=== PATIENT | male | born 1935 | race Caucasian/White ===

== ENCOUNTER 2018-04-30 12:50 | Emergency (ER) | payer MEDICARE ==
[2018-04-30 13:08] VITALS: BP 145/64
[2018-04-30] MEDS ORDERED: Ibuprofen TAB* 600 MG PO ONE (13:18)
--- NOTE | 2018-04-30 13:54 | RAD ---
INDICATION: Right foot pain COMPARISON: None TECHNIQUE: AP, lateral, and oblique views were obtained. FINDINGS: There is osteopenia. There is no acute bony change. There is diffuse soft tissue swelling over the dorsum of the forefoot. IMPRESSION: DIFFUSE SOFT TISSUE SWELLING OF THE FOREFOOT. NO FRACTURE OR FOREIGN BODY.
--- NOTE | 2018-04-30 14:28 | UC ---
Daxa Porter Tenzin, scribed for Slick Barajas MD on 04/30/18 at 1322 . Lower Extremity/Ankle HPI - HPI Summary HPI Summary: Pt is an 82 years old male with a hx of DM presenting to the complaining of pain in his right foot since 2 weeks ago. He notes that he had similar pain in the past year and it went away. Per triage, pt rates the pain at 4/10 in severity and describes it as aching. Denies fever,chills and trauma. He notes that ibuprofen helps alleviate the pain. No aggravating factors were noted. - History of Current Complaint Chief Complaint: UCLowerExtremity Stated Complaint: FOOT PAIN Time Seen by Provider: 04/30/18 13:14 Hx Obtained From: Patient Onset/Duration: Still Present Severity Currently: Mild Pain Intensity: 4 Pain Scale Used: 0-10 Numeric Aggravating Factor(s): Nothing Alleviating Factor(s): Other - Ibuprofen. - Allergies/Home Medications Allergies/Adverse Reactions: Allergies Allergy/AdvReac Type Severity Reaction Status Date / Time No Known Allergies Allergy Verified 04/30/18 13:08 Home Medications: Home Medications Ibuprofen TAB* [Advil TAB*] 200 mg PO Q6H PRN 04/30/18 [History Confirmed ] PMH/Surg Hx/FS Hx/Imm Hx - Additional Past Medical History Additional PMH: NEGATIVE: CARDIAC DISEASE POSITIVE: DM Endocrine History: Diabetes - Surgical History Surgical History: None - Family History Known Family History: Positive: Other - pt denies any relevant family history. - Social History Alcohol Use: None Substance Use Type: None Smoking Status (MU): Former Smoker When Did the Patient Quit Smoking/Using Tobacco: 2000 - Immunization History Most Recent Tetanus Shot: unknown Review of Systems Constitutional: Negative Skin: Negative Eyes: Negative ENT: Negative Respiratory: Negative Cardiovascular: Negative Gastrointestinal: Negative Genitourinary: Negative Motor: Negative Neurovascular: Negative Musculoskeletal: Other: - Pain in right foot. Neurological: Negative Psychological: Negative All Other Systems Reviewed And Are Negative: Yes - Comments Additional Review of Systems Comments: POSITIVE: RIGHT FOOT PAIN NEGATIVE: FEVER, CHILLS, TRAUMA. Physical Exam - Summary Physical Exam Summary: General: well-appearing, no pain distress Skin: warm, color reflects adequate perfusion, dry Head: normal Eyes: EOMI, HALEY ENT: normal Neck: supple, nontender Respiratory: CTA, breath sounds present Cardiovascular: RRR Abdomen: soft, nontender Bowel: present Musculoskeletal: Bilateral pedal edema; right foot is worse than left. Right foot is erythematous, warm to touch. No drainage and wound in right foot. Neurological: sensory/motor intact, A&O x3 Psychological: affect/mood appropriate Triage Information Reviewed: Yes Vital Signs: Initial Vital Signs Temp 97.7 F 04/30/18 13:03 Pulse 87 04/30/18 13:03 Resp 16 04/30/18 13:03 BP 145/64 04/30/18 13:03 Pulse Ox 96 04/30/18 13:03 Vital Signs Reviewed: Yes Diagnostics - Radiology RIGHT FOOT X RAY Radiology Interpretation Completed By: Radiologist - IMPRESSION:DIFFUSE SOFT TISSUE SWELLING OF THE FOREFOOT. NO FRACTURE OR FOREIGN BODY. Lower Extremity Course/Dx - Course Course Of Treatment: NO CALF TENDERNESS. NO FEVER. NO SOB. WILL TREAT FOR CELLULITIS. BLOOD WORK OBTAINED TO FURTHER EVAL FOR CHF. [facility] WITH [facility]; RECHECK SOONER IF WORSE. - Differential Dx/Diagnosis Provider Diagnoses: PEDAL EDEMA. RIGHT FOOT PAIN. RIGHT FOOT CELLULITIS Discharge - Sign-Out/Discharge Documenting (check all that apply): Discharge/Admit/Transfer - Discharge Plan Condition: Stable Disposition: HOME Prescriptions: Cephalexin CAP* [Keflex CAP*] 500 mg PO QID #40 cap Patient Education Materials: Cellulitis (ED), Leg Edema (ED) Referrals: Carol Kearney [Primary Care Provider] - Additional Instructions: FOLLOW UP WITH YOUR PRIMARY CARE DOCTOR AND THE [facility]. GET RECHECKED FOR ANY WORSENING OF YOUR CONDITION; FEVER, SPREAD OF THE RASH, YOU FEEL ILL OR QUESTIONS OR CONCERNS. - Billing Disposition and Condition Condition: STABLE Disposition: Home The documentation as recorded by the Daxa ruano Tenzin accurately reflects the service I personally performed and the decisions made by me, Slick Barajas MD.
== END 2018-04-30 14:35 | disposition home or self-care (01) ==
LOC: UCEAST 12:50
DX: L03.115 Cellulitis of right lower limb (principal); R60.0 Localized edema; M79.671 Pain in right foot; E11.9 Type 2 diabetes mellitus without complications; Z87.891 Personal history of nicotine dependence
CPT/HCPCS: 99212; A9270-GY; G0463

== ENCOUNTER 2018-08-28 16:19 | Inpatient (IN) | payer OTHER, MEDICARE ==
[2018-08-28 18:29] LABS: ABS Basophils 0.1 10^3/ul (0-0.2); ABS Eosinophils 0.7 10^3/ul (0-0.6); ABS Lymphocytes 1.3 10^3/ul (1.0-4.8); ABS Monocytes 0.6 10^3/ul (0-0.8); ABS Neutrophils 6.9 10^3/ul (1.5-7.7); ABS Nucleated RBC 0 10^3/ul; Eosinophil % 6.9 % (0-6); Hematocrit 34 % (42-52); Hemoglobin 11.4 g/dl (14.0-18.0); Lymphocyte % 13.5 % (25-47); Mean Corpuscular HGB Conc 34 g/dl (31-36); Mean Corpuscular Hemoglobin 30 pg (27-31); Mean Corpuscular Volume 88 fL (80-94); Mean Platelet Volume 7.9 um3 (7.4-10.4); Nucleated Red Blood Cells % 0; Platelet Count 285 10^3/ul (150-450); Red Cell Distribution Width 13 % (10.5-15); White Blood Count 9.5 10^3/ul (3.5-10.8)
[2018-08-28 18:47] LABS: EGFR Non-African American 46.7 (>60)
[2018-08-28] MEDS ORDERED: Diazepam TAB(*) 5 MG PO ONE (19:11)
[2018-08-28] MEDS ORDERED: Vancomycin(*) 1,000 MG in NS 0.9% 250 ML* 250 ML IVPB ONE (19:23)
[2018-08-28] MEDS ORDERED: Acetaminophen TAB* 325 MG PO ONE (19:28)
[2018-08-28] MEDS ORDERED: NS 0.9% 500 ML* 500 ML IV ONE (19:28)
[2018-08-28] MEDS ORDERED: Piperacillin/Tazobac ADVAN(*) 3.375 GM in NS 0.9% 100 ML* 100 ML IVPB ONE (19:33)
--- NOTE | 2018-08-28 19:33 | ED ---
Lower Extremity - HPI Summary HPI Summary: [facility] evaluation of persistent cellulitis of bilateral lower extremities. Patient has been on 3 courses of PO antibiotics without improvement. Patient complains of redness, swelling, bruising and pain at bilateral extremities x weeks. Patient does not know what antibiotics he has been on, but states there were 3 different colored pills. Anay on file. Also complains of right hip pain radiating down right leg with history prior history of same. Also complains of productive cough that he states is improving. Denies trauma, fever, sore throat, ear pain, YING, neck stiffness, CP , SOB, N/V/D, abdominal pain, change in urine, change in BM. Medical history is HTN, DM, sciatica. - History of Current Complaint Chief Complaint: EDRashSkinAbscess Stated Complaint: BOTH LEGS SWOLLEN Time Seen by Provider: 08/28/18 17:47 Hx Obtained From: Patient Mechanism Of Injury: Unknown Onset/Duration: Weeks Severity Initially: Mild Severity Currently: Moderate Pain Intensity: 6 Pain Scale Used: 0-10 Numeric Timing: Constant Associated Signs And Symptoms: Positive: Swelling, Redness Aggravating Factor(s): Standing, Ambulation, Weight Bearing Alleviating Factor(s): Rest - Allergies/Home Medications Allergies/Adverse Reactions: Allergies Allergy/AdvReac Type Severity Reaction Status Date / Time No Known Allergies Allergy Verified 08/28/18 16:27 Home Medications: Home Medications Albuterol HFA INHALER* [Ventolin HFA Inhaler*] 2 puff INH Q4H PRN 08/28/18 [ History Confirmed 08/28/18] Atorvastatin* [Lipitor*] 20 mg PO DAILY 08/28/18 [History Confirmed 08/28/18] Bacitracin/Polymyxin B Sulfate [Bacitracin/Polymyxin 500-88147 Unit/gm] 1 applic TOPICAL DAILY PRN 08/28/18 [History Confirmed 08/28/18] DOXYcycline CAP(*) [DOXYcycline 100MG CAP(*)] 100 mg PO BID 08/28/18 [History Confirmed 08/28/18] Gabapentin CAP(*) [Neurontin 100 mg CAP(*)] 100 mg PO TID 08/28/18 [History Confirmed 08/28/18] Levothyroxine TAB* [Synthroid TAB*] 25 mcg PO DAILY 08/28/18 [History Confirmed 08/28/18] Lisinopril/Hydrochlorothiazide [Zestoretic 20-12.5 mg-] 1 tab PO DAILY 08/28/18 [History Confirmed 08/28/18] NIFEdipine ER TAB* [Procardia Xl TAB*] 30 mg PO DAILY 08/28/18 [History Confirmed 08/28/18] metFORMIN* [Glucophage 1000 MG TAB *] 1,000 mg PO BID 08/28/18 [History Confirmed 08/28/18] PMH/Surg Hx/FS Hx/Imm Hx Endocrine/Hematology History: Reports: Hx Diabetes - type 2 Denies: Hx Anticoagulant Therapy, Hx Thyroid Disease Cardiovascular History: Reports: Hx Hypertension Respiratory History: Denies: Hx Asthma, Hx Chronic Obstructive Pulmonary Disease (COPD) GI History: Denies: Hx Ulcer Infectious Disease History: No Infectious Disease History: Denies: Hx Hepatitis, Hx Human Immunodeficiency Virus (HIV), Traveled Outside the [place] in Last 30 Days - Family History Known Family History: Positive: Other - pt denies any relevant family history. - Social History Alcohol Use: None Substance Use Type: Reports: None Smoking Status (MU): Former Smoker Review of Systems Constitutional: Negative Eyes: Negative ENT: Negative Cardiovascular: Negative Respiratory: Negative Gastrointestinal: Negative Genitourinary: Negative Musculoskeletal: Other Skin: Other Neurological: Negative Psychological: Normal All Other Systems Reviewed And Are Negative: Yes Physical Exam - Summary Physical Exam Summary: Cellulitis, bruising and neck she warmth to bilateral anterior lower extremities proximal to ankle. Areas of raw tissue. Nontender. Positive edema to bilateral lower extremities. PMS intact distally. Lung sounds clear to auscultation bilaterally. Triage Information Reviewed: Yes Vital Signs On Initial Exam: Initial Vitals Temp Pulse Resp BP Pulse Ox 100.6 F 92 20 189/85 93 08/28/18 16:22 08/28/18 16:22 08/28/18 16:22 08/28/18 16:22 08/28/18 16:22 Vital Signs Reviewed: Yes Appearance: Positive: Well-Appearing Skin: Positive: Warm Head/Face: Positive: Normal Head/Face Inspection Eyes: Positive: Normal ENT: Positive: Normal ENT inspection Neck: Positive: Supple Respiratory/Lung Sounds: Positive: Clear to Auscultation Cardiovascular: Positive: Normal Abdomen Description: Positive: Nontender Musculoskeletal: Positive: Normal Neurological: Positive: Normal Psychiatric: Positive: Normal AVPU Assessment: Alert - [place] Coma Scale Best Eye Response: 4 - Spontaneous Best Motor Response: 6 - Obeys Commands Best Verbal Response: 5 - Oriented Coma Scale Total: 15 Diagnostics - Vital Signs Vital Signs Temp Pulse Resp BP Pulse Ox 08/28/18 19:23 20 08/28/18 18:53 89 21 156/81 95 08/28/18 18:23 102 24 156/99 08/28/18 18:00 96 22 96 08/28/18 17:54 96 178/88 96 08/28/18 17:53 100 95 08/28/18 16:22 100.6 F 92 20 189/85 93 - Laboratory Lab Results: Lab Results 08/28/18 08/28/18 08/28/18 Range/Units 18:04 18:04 18:04 WBC 9.5 (3.5-10.8) 10^3/ul RBC 3.80 L (4.00-5.40) 10^6/ul Hgb 11.4 L (14.0-18.0) g/dl Hct 34 L (42-52) % MCV 88 (80-94) fL MCH 30 (27-31) pg MCHC 34 (31-36) g/dl RDW 13 (10.5-15) % Plt Count 285 (150-450) 10^3/ul MPV 7.9 (7.4-10.4) um3 Neut % (Auto) 72.8 (38-83) % Lymph % (Auto) 13.5 L (25-47) % [place] % (Auto) 6.0 (0-7) % Eos % (Auto) 6.9 H (0-6) % Baso % (Auto) 0.8 (0-2) % Absolute Neuts (auto) 6.9 (1.5-7.7) 10^3/ul Absolute Lymphs (auto) 1.3 (1.0-4.8) 10^3/ul Absolute Monos (auto) 0.6 (0-0.8) 10^3/ul Absolute Eos (auto) 0.7 H (0-0.6) 10^3/ul Absolute Basos (auto) 0.1 (0-0.2) 10^3/ul Absolute Nucleated RBC 0 10^3/ul Nucleated RBC % 0 Sodium 138 (135-145) mmol/L Potassium 4.2 (3.5-5.0) mmol/L Chloride 103 (101-111) mmol/L Carbon Dioxide 27 (22-32) mmol/L Anion Gap 8 (2-11) mmol/L BUN 28 H (6-24) mg/dL Creatinine 1.45 H (0.67-1.17) mg/dL Est GFR ( Amer) 56.5 (>60) Est GFR (Non-Af Amer) 46.7 (>60) BUN/Creatinine Ratio 19.3 (8-20) Glucose 178 H (70-100) mg/dL Lactic Acid 2.0 (0.5-2.0) mmol/L Calcium 9.3 (8.6-10.3) mg/dL Total Bilirubin 0.50 (0.2-1.0) mg/dL AST 18 (13-39) U/L ALT 17 (7-52) U/L Alkaline Phosphatase 71 (34-104) U/L C-Reactive Protein 15.56 H (<8.01) mg/L Total Protein 6.6 (6.4-8.9) g/dL Albumin 3.9 (3.2-5.2) g/dL Globulin 2.7 (2-4) g/dL Albumin/Globulin Ratio 1.4 (1-3) Result Diagrams: 08/28/18 18:04 08/28/18 18:04 Lab Statement: Any lab studies that have been ordered have been reviewed, and results considered in the medical decision making process. Lower Extremity Course/Dx - Course Course Of Treatment: [facility] of persistent cellulitis of bilateral lower extremities. Patient has been on 3 courses of PO antibiotics without improvement. Patient complains of redness, swelling, bruising and pain at bilateral extremities x weeks. Patient does not know what antibiotics he has been on, but states there were 3 different colored pills. Doxy on file. Also complains of right hip pain radiating down right leg with history prior history of same. Also complains of productive cough that he states is improving. Denies trauma, fever, sore throat, ear pain, YING, neck stiffness, CP, SOB, N/V/D, abdominal pain, change in urine, change in BM. Medical history is HTN, DM, sciatica. Physical exam:Cellulitis, bruising and neck she warmth to bilateral anterior lower extremities proximal to ankle. Areas of raw tissue. Nontender. Positive edema to bilateral lower extremities. PMS intact distally. Lung sounds clear to auscultation bilaterally. Temp 100.6. Mildly tachycardic intermittently. Elevated BP. White count unremarkable. Lactic unremarkable. CRP unremarkable. Admitted for failure of outpatient treatment. - Diagnoses Provider Diagnoses: Cellulitis, Sciatica, Cough Discharge - Sign-Out/Discharge Documenting (check all that apply): Patient Departure - Discharge Plan Condition: Stable Disposition: ADMITTED TO [facility] - Billing Disposition and Condition Condition: STABLE Disposition: Admitted to [facility]
[2018-08-28 19:52] LABS: Urine Appearance Clear; Urine Blood Negative (Negative); Urine Color Yellow; Urine Ketones Negative (Negative); Urine Protein Negative (Negative); Urine Specific Gravity 1.008 (1.010-1.030); Urine Urobilinogen Negative (Negative)
[2018-08-28] MEDS ORDERED: Dextrose 50% Syringe 50 ML* 25 GM/50 ML SYRINGE IV PUSH PRN (20:54)
--- NOTE | 2018-08-28 21:07 | ADMNOTE ---
Subjective Date of Service: 08/28/18 Interval History: this is an admission h/p pt is full code 60 min was spent on this pt initial eval hpi this is 83 yr old wm with hx of cellulitis for 3 weeks was treated by [facility] twice with three different abx ---> did not seem to help decided to come in for eval. he was found to have low grade temp to 100.6 c/o coughing ( copd ) and his chronic sciatica pain initial wbc and lactate wnl. 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 pshx none social hx no cig quit since [id number] quit etoh 50 yrs ago no ivda lives with ambulates well fhx dad + cad Family History: Findings - as above Social History: Findings - as above Past Medical History: Findings - as above Review of Systems - Measurements Intake and Output: Intake and Output Last 24 Hours 08/26/18 08/27/18 08/28/18 08/29/18 06:59 06:59 06:59 06:59 Weight 189 lb - Review of Systems General Comments: pertinent as per hpi Objective Active Medications: Albuterol (Ventolin Hfa Inhaler*) 2 puff INH Q4H PRN PRN Reason: SHORTNESS OF BREATH Atorvastatin Calcium (Lipitor*) 20 mg PO DAILY [facility] Dextrose (D50w Syringe 50 Ml*) 12.5 gm IV PUSH .FOR FS < 60 - SS PRN PRN Reason: FS < 60 Enoxaparin Sodium (Lovenox(*)) 40 mg SUBCUT Q24H [facility] Gabapentin (Neurontin Cap(*)) 100 mg PO TID ANGELY Lisinopril/HCTZ (Zestoretic 20/12.5(Nf)) 1 tab PO DAILY [facility] Vancomycin HCl 250 mg/ Sodium (Chloride) 250 mls @ 166.667 mls/hr IVPB .CONTINUE PROTOCOL ANGELY; Protocol Piperacillin Sod/Tazobactam (Sod 3.375 gm/ Sodium Chloride) 100 mls @ 25 mls/ hr IVPB Q8H [facility] Sodium Chloride (Ns 0.9% 1000 Ml*) 1,000 mls @ 125 mls/hr IV PER RATE [facility] Insulin Human Lispro (Humalog*) 0 units SUBCUT ACHS ANGELY; Protocol Levothyroxine Sodium (Synthroid Tab*) 25 mcg PO DAILY [facility] Metformin HCl (Glucophage*) 1,000 mg PO BID [facility] Nifedipine (Procardia Xl Tab*) 30 mg PO DAILY [facility] Vital Signs - 8 hr 08/28/18 08/28/18 08/28/18 16:22 17:53 17:54 Temperature 100.6 F Pulse Rate 92 100 96 Respiratory 20 Rate Blood Pressure 189/85 178/88 (mmHg) O2 Sat by Pulse 93 95 96 Oximetry 08/28/18 08/28/18 08/28/18 18:00 18:23 18:53 Temperature Pulse Rate 96 102 89 Respiratory 22 24 21 Rate Blood Pressure 156/99 156/81 (mmHg) O2 Sat by Pulse 96 95 Oximetry 08/28/18 08/28/18 08/28/18 19:00 19:23 19:53 Temperature Pulse Rate 87 91 87 Respiratory 22 21 18 Rate Blood Pressure 171/108 159/97 (mmHg) O2 Sat by Pulse 95 95 95 Oximetry 08/28/18 08/28/18 20:00 20:23 Temperature Pulse Rate 96 92 Respiratory 25 20 Rate Blood Pressure 159/70 (mmHg) O2 Sat by Pulse 94 95 Oximetry Result Diagrams: 08/29/18 05:58 08/29/18 05:58 Additional Lab and Data: Lab Results 08/28/18 08/28/18 08/28/18 Range/Units 18:04 18:04 18:04 WBC 9.5 (3.5-10.8) 10^3/ul RBC 3.80 L (4.00-5.40) 10^6/ul Hgb 11.4 L (14.0-18.0) g/dl Hct 34 L (42-52) % MCV 88 (80-94) fL MCH 30 (27-31) pg MCHC 34 (31-36) g/dl RDW 13 (10.5-15) % Plt Count 285 (150-450) 10^3/ul MPV 7.9 (7.4-10.4) um3 Neut % (Auto) 72.8 (38-83) % Lymph % (Auto) 13.5 L (25-47) % [place] % (Auto) 6.0 (0-7) % Eos % (Auto) 6.9 H (0-6) % Baso % (Auto) 0.8 (0-2) % Absolute Neuts (auto) 6.9 (1.5-7.7) 10^3/ul Absolute Lymphs (auto) 1.3 (1.0-4.8) 10^3/ul Absolute Monos (auto) 0.6 (0-0.8) 10^3/ul Absolute Eos (auto) 0.7 H (0-0.6) 10^3/ul Absolute Basos (auto) 0.1 (0-0.2) 10^3/ul Absolute Nucleated RBC 0 10^3/ul Nucleated RBC % 0 Sodium 138 (135-145) mmol/L Potassium 4.2 (3.5-5.0) mmol/L Chloride 103 (101-111) mmol/L Carbon Dioxide 27 (22-32) mmol/L Anion Gap 8 (2-11) mmol/L BUN 28 H (6-24) mg/dL Creatinine 1.45 H (0.67-1.17) mg/dL Est GFR ( Amer) 56.5 (>60) Est GFR (Non-Af Amer) 46.7 (>60) BUN/Creatinine Ratio 19.3 (8-20) Glucose 178 H (70-100) mg/dL Lactic Acid 2.0 (0.5-2.0) mmol/L Calcium 9.3 (8.6-10.3) mg/dL Total Bilirubin 0.50 (0.2-1.0) mg/dL AST 18 (13-39) U/L ALT 17 (7-52) U/L Alkaline Phosphatase 71 (34-104) U/L C-Reactive Protein 15.56 H (<8.01) mg/L Total Protein 6.6 (6.4-8.9) g/dL Albumin 3.9 (3.2-5.2) g/dL Globulin 2.7 (2-4) g/dL Albumin/Globulin Ratio 1.4 (1-3) Assess/Plan/Problems-Billing Assessment: this is 83 yr old presented with b/l le cellulitis three weeks with three oral abx treatment with no improvement came in to ask for help - Patient Problems (1) Cellulitis Current Visit: Yes Status: Acute Code(s): L03.90 - CELLULITIS, UNSPECIFIED SNOMED Code(s): 027742427 Comment: will empirically treat with zosyn and vanco wound cx if possible nare for mrsa ? wound care eval moniter cbc trend will give td booster and pneumonia shots when leaves (2) HTN (hypertension) Current Visit: Yes Status: Acute Code(s): I10 - ESSENTIAL (PRIMARY) HYPERTENSION SNOMED Code(s): 45306737 Comment: still high will take hctz out and gentle hydrdation since he is dehyrated but will add hydralazine 5 iv q6 prn if sbp>150 or dbp >100 (3) COPD (chronic obstructive pulmonary disease) Current Visit: Yes Status: Acute Code(s): J44.9 - CHRONIC OBSTRUCTIVE PULMONARY DISEASE, UNSPECIFIED SNOMED Code(s): 80258899 Comment: no need for oxygen albuterol prn (4) BPH (benign prostatic hyperplasia) Current Visit: Yes Status: Acute Code(s): N40.0 - BENIGN PROSTATIC HYPERPLASIA WITHOUT LOWER URINRY TRACT SYMP SNOMED Code(s): 158271754 Comment: ck ua and psa (5) PVD (peripheral vascular disease) Current Visit: Yes Status: Acute Code(s): I73.9 - PERIPHERAL VASCULAR DISEASE, UNSPECIFIED SNOMED Code(s): 297248352 (6) Dehydration Current Visit: Yes Status: Acute Code(s): E86.0 - DEHYDRATION SNOMED Code( s): 67181383 Comment: gentle ivf (7) Chronic anemia Current Visit: Yes Status: Acute Code(s): D64.9 - ANEMIA, UNSPECIFIED SNOMED Code(s): 665513909 Comment: ck iron panel will encourage him to have outpt colonoscopy too (8) DVT prophylaxis Current Visit: Yes Status: Acute Code(s): YSA3458 - SNOMED Code(s): 446143010 Comment: as per hospital protocol (9) Chronic bilateral low back pain Current Visit: Yes Status: Acute Code(s): M54.5 - LOW BACK PAIN; G89.29 - OTHER CHRONIC PAIN SNOMED Code(s): 154266439 Comment: got one dose of valium for spasm from er will use prn flexeril instead at his point 5 mg tid prn
[2018-08-28] MEDS ORDERED: Tetan/Diph/Pertus SYR(Tdap)* 0.5 ML SYR(BOOSTRIX) use SYR IM ONE (21:56)
[2018-08-28] MEDS ORDERED: Pneumococcal *Vac Polyvalent 0.5 ML VIAL IM ONE (22:00)
[2018-08-28] MEDS ORDERED: hydrALAZINE IV* 20 MG/ML VIAL IV SLOW PU PRN (22:00)
[2018-08-28] MEDS ORDERED: Vancomycin per Pharmacy* NOTE FOLLOW UP PRN (22:49)
[2018-08-28] MEDS: NS 0.9% 1000 ML* 1,000 ML IV SCH (22:50)
[2018-08-28] MEDS: Enoxaparin(*) 40 MG/0.4 ML SYR SUBCUT SCH (23:05)
[2018-08-28] MEDS: Gabapentin CAP(*) 100 MG PO SCH (23:07)
[2018-08-28] MEDS: metFORMIN* 1,000 MG TAB PO SCH (23:08)
[2018-08-28] MEDS: Insulin LISPRO* 1 UNITS UNIT SUBCUT SCH (23:17)
[2018-08-29] MEDS: Piperacillin/Tazobac ADVAN(*) 3.375 GM in NS 0.9% 100 ML* 100 ML IVPB SCH ×3 (03:13→20:03)
[2018-08-29] MEDS: Levothyroxine TAB* 25 MCG TAB PO SCH (05:02)
[2018-08-29 06:31] LABS: ABS Basophils 0.1 10^3/ul (0-0.2); ABS Eosinophils 0.5 10^3/ul (0-0.6); ABS Lymphocytes 1.4 10^3/ul (1.0-4.8); ABS Monocytes 0.7 10^3/ul (0-0.8); ABS Neutrophils 5.9 10^3/ul (1.5-7.7); ABS Nucleated RBC 0 10^3/ul; Eosinophil % 6.2 % (0-6); Hematocrit 31 % (42-52); Hemoglobin 10.3 g/dl (14.0-18.0); Lymphocyte % 16.7 % (25-47); Mean Corpuscular HGB Conc 34 g/dl (31-36); Mean Corpuscular Hemoglobin 30 pg (27-31); Mean Corpuscular Volume 88 fL (80-94); Mean Platelet Volume 8.2 um3 (7.4-10.4); Nucleated Red Blood Cells % 0; Platelet Count 242 10^3/ul (150-450); Red Blood Count 3.49 10^6/ul (4.00-5.40); Red Cell Distribution Width 13 % (10.5-15); White Blood Count 8.7 10^3/ul (3.5-10.8)
[2018-08-29 06:47] LABS: EGFR Non-African American 50.7 (>60)
--- NOTE | 2018-08-29 07:04 | RAD ---
INDICATION: Cough and chest tightness. COMPARISON: Comparison is made with a prior study from January 02, 2011. TECHNIQUE: AP and lateral views of the chest were obtained. FINDINGS: The heart is within normal limits in size. Mediastinal and hilar contours appear within normal limits. There is a linear density present in the right middle lobe which is unchanged from the prior exam most consistent with atelectasis or scarring. The lungs are otherwise clear. No pleural effusion is seen. There is flattening of the diaphragms suggestive of chronic obstructive pulmonary disease. IMPRESSION: 1. CHRONIC RIGHT MIDDLE LOBE ATELECTASIS OR SCARRING. 2. FINDINGS SUGGESTIVE OF COPD. R0
[2018-08-29] MEDS: Insulin LISPRO* 1 UNITS UNIT SUBCUT SCH ×4 (07:14→20:11)
[2018-08-29] MEDS: NS 0.9% 1000 ML* 1,000 ML IV SCH ×2 (07:32→17:29)
[2018-08-29] MEDS ORDERED: Magnesium Sulf 4 GM/100 ML IV* 4,000 MG/100 ML BAG IVPB ONE (08:56)
[2018-08-29] MEDS ORDERED: Pneumococcal *Vac Polyvalent 0.5 ML VIAL IM ONE (09:00)
[2018-08-29] MEDS ORDERED: Lisinopril/HCTZ 20/12.5(NF) TAB PO SCH (09:00)
[2018-08-29] MEDS ORDERED: Hydrochlorothiazide TAB* 25 MG PO SCH (09:00)
[2018-08-29] MEDS ORDERED: Lisinopril TAB* 10 MG PO SCH (09:00)
[2018-08-29] MEDS ORDERED: Tetan/Diph/Pertus SYR(Tdap)* 0.5 ML SYR(BOOSTRIX) use SYR IM ONE (09:00)
[2018-08-29] MEDS: Atorvastatin* 40 MG TAB PO SCH (09:52)
[2018-08-29] MEDS: Lisinopril TAB* 10 MG PO SCH (09:52)
[2018-08-29] MEDS: Ferrous Sulfate TAB* 325 MG PO SCH ×2 (09:53→20:11)
[2018-08-29] MEDS: NIFEdipine ER TAB* 30 MG PO SCH (09:53)
[2018-08-29] MEDS: Gabapentin CAP(*) 100 MG PO SCH ×3 (09:53→20:11)
[2018-08-29] MEDS: Docusate CAP* 100 MG PO SCH ×2 (09:53→20:11)
[2018-08-29] MEDS: Acetaminophen TAB* 325 MG PO PRN (09:54)
[2018-08-29] MEDS: metFORMIN* 1,000 MG TAB PO SCH ×2 (09:54→20:11)
[2018-08-29] MEDS: Nystatin TOP POWDER* 15 GM BTL TOPICAL SCH ×2 (11:33→20:16)
--- NOTE | 2018-08-29 11:42 | PN ---
Subjective Date of Service: 08/29/18 Interval History: Mr. Pastor reports feeling better today. He feels as though the redness in his legs has decreased and they are not weeping like yesterday. He does report that he has taken 3 different antibiotics prior to admission. He is a very poor historian and is not able to name the antibiotics. They were all obtained from the [place] [facility] in [place] which is closed today and tomorrow. He denies pain. Only complaint is that the hospital bed is uncomfortable. Denies CP, SOB, N/V/D , dizziness. He reportedly told nursing overnight that he does not check his blood sugars at home because he is not able to reach his glucometer. He lives with his who reportedly has dementia. Family History: Unchanged from Admission Social History: Unchanged from Admission Past Medical History: Unchanged from Admission Objective Active Medications: Acetaminophen (Tylenol Tab*) 650 mg PO Q6H PRN Albuterol (Ventolin Hfa Inhaler*) 2 puff INH Q4H PRN Atorvastatin Calcium (Lipitor*) 20 mg PO DAILY ANGELY Cyclobenzaprine HCl (Flexeril Tab*) 5 mg PO TID PRN Dextrose (D50w Syringe 50 Ml*) 12.5 gm IV PUSH .FOR FS < 60 - SS PRN Docusate Sodium (Colace Cap*) 100 mg PO BID ANGELY Enoxaparin Sodium (Lovenox(*)) 40 mg SUBCUT Q24H ANGELY Ferrous Sulfate (Ferrous Sulfate Tab*) 325 mg PO BID ANGELY Gabapentin (Neurontin Cap(*)) 100 mg PO TID ANGELY Hydralazine HCl (Apresoline Iv*) 5 mg IV SLOW PU Q6H PRN Vancomycin HCl 1,250 mg/ (Sodium Chloride) 250 mls @ 166.667 mls/hr IVPB Q24H ANGELY; Protocol Piperacillin Sod/Tazobactam (Sod 3.375 gm/ Sodium Chloride) 100 mls @ 25 mls/ hr IVPB Q8H ANGELY Sodium Chloride (Ns 0.9% 1000 Ml*) 1,000 mls @ 125 mls/hr IV PER RATE ANGELY Magnesium Sulfate (Magnesium Sulf 4 Gm/100 Ml Iv*) 4,000 mg in 100 mls @ 33.333 mls/hr IVPB ONCE ONE Insulin Human Lispro (Humalog*) 0 units SUBCUT ACHS ANGELY; Protocol Levothyroxine Sodium (Synthroid Tab*) 25 mcg PO DAILY@0600 [facility] Lisinopril (Prinivil Tab*) 20 mg PO DAILY [facility] Metformin HCl (Glucophage*) 1,000 mg PO BID [facility] Nifedipine (Procardia Xl Tab*) 30 mg PO DAILY [facility] Nystatin (Nystatin Top Powder*) 1 applic TOPICAL BID ANGELY Pharmacy Consult (Vancomycin Per Pharmacy*) 1 note FOLLOW UP . PRN Pharmacy Profile Note (Vancomycin Trough Check) 1 note FOLLOW UP 1930 ONE Vital Signs - 8 hr 08/29/18 08/29/18 08/29/18 04:55 07:22 07:37 Temperature 97.3 F 97.9 F Pulse Rate 97 89 Respiratory 16 18 18 Rate Blood Pressure 147/73 146/85 (mmHg) O2 Sat by Pulse 99 92 Oximetry Oxygen Devices in Use Now: None Appearance: Elderly male sitting in bed in NAD Eyes: No Scleral Icterus Ears/Nose/Mouth/Throat: Mucous Membranes Moist Neck: NL Appearance and Movements; NL JVP, Trachea Midline Respiratory: Symmetrical Chest Expansion and Respiratory Effort, Clear to Auscultation Cardiovascular: NL Sounds; No Murmurs; No JVD, RRR Abdominal: NL Sounds; No Tenderness; No Distention Extremities: No Clubbing, Cyanosis Skin: - - Erythema and moderate nonpitting edema to BLE; there are multiple open areas which are not currently draining Neurological: Alert and Oriented x 3, NL Sensation Lines/Tubes/Other Access: Clean, Dry and Intact Peripheral IV Nutrition: Taking PO's Result Diagrams: 08/29/18 05:58 08/29/18 05:58 Assess/Plan/Problems-Billing Assessment: Mr. Pastor is a 83yo with PMH of DM2, HTN, and PVD who presented with worsening erythema, edema, and weeping to BLE and has failed 3 different outpatient antibiotics for cellulitis. - Patient Problems (1) Cellulitis of both lower extremities Current Visit: Yes Status: Acute Priority: High Code(s): L03.115 - CELLULITIS OF RIGHT LOWER LIMB; L03.116 - CELLULITIS OF LEFT LOWER LIMB SNOMED Code(s): 811182822 Comment: - Has failed 2-3 unknown outpatient antibiotics; reportedly received doxy - Appreciate wound and ID consults - Continue vanco and zosyn; will trend renal function and continue IVF - Will need records from [facility] in [place] on Friday (2) Diabetes mellitus, type 2 Current Visit: Yes Status: Chronic Priority: High Comment: - A1C 7.2% - Continue metformin, lispro SS (3) PVD (peripheral vascular disease) Current Visit: Yes Status: Chronic Priority: High Code(s): I73.9 - PERIPHERAL VASCULAR DISEASE, UNSPECIFIED SNOMED Code(s): 292613154 Comment: - With open, weeping wounds to BLE - Appreciate wound consult (4) HTN (hypertension) Current Visit: Yes Status: Chronic Priority: Medium Code(s): I10 - ESSENTIAL (PRIMARY) HYPERTENSION SNOMED Code(s): 35932330 Comment: - SBPs 140s - Continue nifedipine, lisinopril - Hydralazine PRN for SBP >160 (5) Hyperlipidemia Current Visit: Yes Status: Chronic Priority: Medium Code(s): E78.5 - HYPERLIPIDEMIA, UNSPECIFIED SNOMED Code(s): 04171735 Comment: - Continue atorvastatin (6) Hypothyroidism Current Visit: Yes Status: Chronic Priority: Medium Code(s): E03.9 - HYPOTHYROIDISM, UNSPECIFIED SNOMED Code(s): 94989127 Comment: - Continue levothyroxine (7) Full code status Current Visit: Yes Status: Acute Priority: High Code(s): Z78.9 - OTHER SPECIFIED HEALTH STATUS SNOMED Code(s): 979491455 (8) DVT prophylaxis Current Visit: Yes Status: Acute Priority: High Code(s): JQY7750 - SNOMED Code(s): 298161774 Comment: - Lovenox Status and Disposition: Change to inpatient. Patient will be here >2 midnights d/t pending ID and wound consults and awaiting records from PCP.
[2018-08-29] MEDS ORDERED: hydrALAZINE IV* 20 MG/ML VIAL IV SLOW PU PRN (12:04)
--- NOTE | 2018-08-29 16:09 | RAD ---
INDICATION: Left lower leg injury. TECHNIQUE: 2 views of the left lower leg were obtained. FINDINGS: There is diffuse soft tissue swelling. The bones are in normal alignment. No erosive change or periosteal reaction is seen. IMPRESSION: SOFT TISSUE SWELLING, NO SPECIFIC EVIDENCE FOR OSTEOMYELITIS. IF THERE IS A HIGH CLINICAL INDEX OF SUSPICION FOR OSTEOMYELITIS CONSIDER AN MRI WITHOUT CONTRAST OR A THREE-PHASE BONE SCAN.
--- NOTE | 2018-08-29 16:10 | RAD ---
INDICATION: Right lower leg injury. TECHNIQUE: 2 views of the right lower leg were obtained. FINDINGS: There is diffuse soft tissue swelling. No bony erosive change or periosteal reaction is seen. IMPRESSION: SOFT TISSUE SWELLING, NO SPECIFIC EVIDENCE FOR OSTEOMYELITIS. IF THERE IS A HIGH CLINICAL INDEX OF SUSPICION FOR OSTEOMYELITIS CONSIDER AN MRI WITHOUT CONTRAST OR A THREE-PHASE BONE SCAN.
[2018-08-29] MEDS: Cyclobenzaprine TAB* 10 MG PO PRN (17:32)
[2018-08-29] MEDS ORDERED: Vancomycin(*) 1,250 MG in NS 0.9% 250 ML* 250 ML IVPB SCH (20:00)
[2018-08-29] MEDS: Enoxaparin(*) 40 MG/0.4 ML SYR SUBCUT SCH (21:41)
[2018-08-30] MEDS: Cyclobenzaprine TAB* 10 MG PO PRN (00:35)
[2018-08-30] MEDS: Acetaminophen TAB* 325 MG PO PRN ×2 (01:26→13:30)
[2018-08-30] MEDS: Albuterol HFA INHALER* 8 gm MDI INH PRN (01:36)
[2018-08-30] MEDS: NS 0.9% 1000 ML* 1,000 ML IV SCH (04:57)
[2018-08-30] MEDS: Levothyroxine TAB* 25 MCG TAB PO SCH (04:58)
[2018-08-30] MEDS: Piperacillin/Tazobac ADVAN(*) 3.375 GM in NS 0.9% 100 ML* 100 ML IVPB SCH ×4 (05:04→23:57)
[2018-08-30 06:37] LABS: ABS Basophils 0.1 10^3/ul (0-0.2); ABS Eosinophils 0.8 10^3/ul (0-0.6); ABS Lymphocytes 1.7 10^3/ul (1.0-4.8); ABS Monocytes 0.6 10^3/ul (0-0.8); ABS Nucleated RBC 0 10^3/ul; Eosinophil % 9.6 % (0-6); Hematocrit 30 % (42-52); Hemoglobin 10.1 g/dl (14.0-18.0); Lymphocyte % 20.3 % (25-47); Mean Corpuscular HGB Conc 34 g/dl (31-36); Mean Corpuscular Hemoglobin 30 pg (27-31); Mean Corpuscular Volume 88 fL (80-94); Mean Platelet Volume 7.9 um3 (7.4-10.4); Nucleated Red Blood Cells % 0; Platelet Count 230 10^3/ul (150-450); Red Blood Count 3.35 10^6/ul (4.00-5.40); Red Cell Distribution Width 14 % (10.5-15); White Blood Count 8.2 10^3/ul (3.5-10.8)
[2018-08-30 06:49] LABS: EGFR Non-African American 53.5 (>60)
[2018-08-30] MEDS: Insulin LISPRO* 1 UNITS UNIT SUBCUT SCH ×4 (08:23→22:54)
[2018-08-30] MEDS: Ferrous Sulfate TAB* 325 MG PO SCH ×2 (08:31→22:55)
[2018-08-30] MEDS: metFORMIN* 1,000 MG TAB PO SCH ×2 (08:31→22:56)
[2018-08-30] MEDS: Docusate CAP* 100 MG PO SCH ×2 (08:31→22:56)
[2018-08-30] MEDS: NIFEdipine ER TAB* 30 MG PO SCH (08:31)
[2018-08-30] MEDS: Gabapentin CAP(*) 100 MG PO SCH ×3 (08:32→22:55)
[2018-08-30] MEDS: Lisinopril TAB* 10 MG PO SCH (08:32)
[2018-08-30] MEDS: Nystatin TOP POWDER* 15 GM BTL TOPICAL SCH ×3 (08:32→23:03)
[2018-08-30] MEDS: Atorvastatin* 40 MG TAB PO SCH (08:35)
--- NOTE | 2018-08-30 10:25 | PN ---
Subjective Date of Service: 08/30/18 Interval History: Mr. Pastor is feeling well today. He is still having difficult sleeping d/t the hospital bed being uncomfortable. He feels as though his legs look significantly better and have dried out since being in the hospital. His [facility]. He states his has now been hospitalized here at [facility]. He is anxious to return home. Denies CP, SOB, N/V/D, dizziness. Family History: Unchanged from Admission Social History: Unchanged from Admission Past Medical History: Unchanged from Admission Objective Active Medications: Acetaminophen (Tylenol Tab*) 650 mg PO Q6H PRN Albuterol (Ventolin Hfa Inhaler*) 2 puff INH Q4H PRN Atorvastatin Calcium (Lipitor*) 20 mg PO DAILY ANGELY Cyclobenzaprine HCl (Flexeril Tab*) 5 mg PO TID PRN Dextrose (D50w Syringe 50 Ml*) 12.5 gm IV PUSH .FOR FS < 60 - SS PRN Docusate Sodium (Colace Cap*) 100 mg PO BID ANGELY Enoxaparin Sodium (Lovenox(*)) 40 mg SUBCUT Q24H ANGELY Ferrous Sulfate (Ferrous Sulfate Tab*) 325 mg PO BID ANGELY Gabapentin (Neurontin Cap(*)) 100 mg PO TID ANGELY Hydralazine HCl (Apresoline Iv*) 5 mg IV SLOW PU Q6H PRN Vancomycin HCl 1,250 mg/ (Sodium Chloride) 250 mls @ 166.667 mls/hr IVPB Q24H ANGELY; Protocol Piperacillin Sod/Tazobactam (Sod 3.375 gm/ Sodium Chloride) 100 mls @ 25 mls/ hr IVPB Q8HR@0000,0800,1600 [facility] Insulin Human Lispro (Humalog*) 0 units SUBCUT ACHS ANGELY; Protocol Levothyroxine Sodium (Synthroid Tab*) 25 mcg PO DAILY@0600 ANGELY Lisinopril (Prinivil Tab*) 20 mg PO DAILY ANGELY Metformin HCl (Glucophage*) 1,000 mg PO BID ANGELY Nifedipine (Procardia Xl Tab*) 30 mg PO DAILY ANGELY Nystatin (Nystatin Top Powder*) 1 applic TOPICAL BID ANGELY Pharmacy Consult (Vancomycin Per Pharmacy*) 1 note FOLLOW UP . PRN Pharmacy Profile Note (Vancomycin Trough Check) 1 note FOLLOW UP 193 ONE Vital Signs - 8 hr 08/30/18 08/30/18 08/30/18 02:49 03:31 07:41 Temperature 98.2 F 97.1 F Pulse Rate 84 77 Respiratory 16 16 16 Rate Blood Pressure 140/77 150/75 (mmHg) O2 Sat by Pulse 94 97 Oximetry Oxygen Devices in Use Now: None Appearance: Elderly male laying in bed in NAD Eyes: No Scleral Icterus Ears/Nose/Mouth/Throat: Mucous Membranes Moist Neck: NL Appearance and Movements; NL JVP Respiratory: Symmetrical Chest Expansion and Respiratory Effort, Clear to Auscultation Cardiovascular: NL Sounds; No Murmurs; No JVD, RRR Abdominal: NL Sounds; No Tenderness; No Distention Extremities: No Clubbing, Cyanosis, - - Erythema and +1 pitting edema to BLE Skin: - - Open areas to BLE, dry Neurological: Alert and Oriented x 3, NL Sensation Lines/Tubes/Other Access: Clean, Dry and Intact Peripheral IV Nutrition: Taking PO's Result Diagrams: 08/30/18 06:06 08/30/18 06:06 Assess/Plan/Problems-Billing Assessment: Mr. Pastor is a 83yo with PMH of DM2, HTN, and PVD who presented with worsening erythema, edema, and weeping to BLE and has failed 3 different outpatient antibiotics for cellulitis. - Patient Problems (1) Cellulitis of both lower extremities Current Visit: Yes Status: Acute Priority: High Code(s): L03.115 - CELLULITIS OF RIGHT LOWER LIMB; L03.116 - CELLULITIS OF LEFT LOWER LIMB SNOMED Code(s): 613894740 Comment: - Has failed outpatient abx; doxy and augmentin based on records from son; also was using mupirocin to open areas - Appreciate wound and ID consults - Continue zosyn; d/c vanco (2) Diabetes mellitus, type 2 Current Visit: Yes Status: Chronic Priority: High Comment: - A1C 7.2% - Continue metformin, lispro SS (3) PVD (peripheral vascular disease) Current Visit: Yes Status: Chronic Priority: High Code(s): I73.9 - PERIPHERAL VASCULAR DISEASE, UNSPECIFIED SNOMED Code(s): 987782266 Comment: - With open, dry wounds to BLE; previous weeping - Appreciate wound consult (4) HTN (hypertension) Current Visit: Yes Status: Chronic Priority: Medium Code(s): I10 - ESSENTIAL (PRIMARY) HYPERTENSION SNOMED Code(s): 77239406 Comment: - SBPs 140s - Continue nifedipine, lisinopril - Resume HCTZ - Hydralazine PRN for SBP >160 (5) Hyperlipidemia Current Visit: Yes Status: Chronic Priority: Medium Code(s): E78.5 - HYPERLIPIDEMIA, UNSPECIFIED SNOMED Code(s): 56318721 Comment: - Continue atorvastatin (6) Hypothyroidism Current Visit: Yes Status: Chronic Priority: Medium Code(s): E03.9 - HYPOTHYROIDISM, UNSPECIFIED SNOMED Code(s): 93869514 Comment: - Continue levothyroxine (7) Full code status Current Visit: Yes Status: Acute Priority: High Code(s): Z78.9 - OTHER SPECIFIED HEALTH STATUS SNOMED Code(s): 458962787 (8) DVT prophylaxis Current Visit: Yes Status: Acute Priority: High Code(s): BKA3042 - SNOMED Code(s): 274962970 Comment: - Lovenox Status and Disposition: Change to inpatient. Patient will be here >2 midnights d/t pending ID and wound consults.
[2018-08-30] MEDS: Hydrochlorothiazide TAB* 25 MG PO SCH (13:24)
[2018-08-30] MEDS: Enoxaparin(*) 40 MG/0.4 ML SYR SUBCUT SCH (22:56)
--- NOTE | 2018-08-30 23:21 | RAD ---
EXAM: US Bilateral Duplex Lower Extremity Veins EXAM DATE/TIME: 08/30/2018 7:27 PM CLINICAL HISTORY: 83 years old, male; Signs and symptoms; Swelling (edema) of limb; Lower extremity, bilateral; Additional info: Leg edema TECHNIQUE: Real-time duplex ultrasound of the Bilateral Lower Extremities with 2-D lewis scale, color Doppler flow and spectral waveform analysis. Complete exam focused on the bilateral lower extremity veins. COMPARISON: No relevant prior studies available. FINDINGS: Right deep veins: Unremarkable. The common femoral, femoral and popliteal veins are patent without thrombus. Normal compressibility, augmentation response and Doppler waveforms. Right superficial veins: Saphenofemoral junction is patent without thrombus. Left deep veins: Unremarkable. The common femoral, femoral and popliteal veins are patent without thrombus. Normal compressibility, augmentation response and Doppler waveforms. Left superficial veins: Saphenofemoral junction is patent without thrombus. Soft tissues: Diffuse subcutaneous edema. IMPRESSION: No evidence of deep vein thrombosis. To contact [facility] with a general question: [facility] - [phone] For direct physician to physician contact: Physician Hotline - [phone] [facility] ([facility] ID #[id number])
[2018-08-31] MEDS: Levothyroxine TAB* 25 MCG TAB PO SCH (05:17)
[2018-08-31] MEDS: Piperacillin/Tazobac ADVAN(*) 3.375 GM in NS 0.9% 100 ML* 100 ML IVPB SCH ×2 (07:48→16:16)
[2018-08-31] MEDS: Insulin LISPRO* 1 UNITS UNIT SUBCUT SCH ×4 (07:53→21:44)
--- NOTE | 2018-08-31 09:01 | PN ---
Subjective Date of Service: 08/31/18 Interval History: Resting on bed. Denies cp, sob, nausea, vomiting, and pain in legs. Reports constipation as he has not had a BM in 3 days. Bowel meds ordered Discussing cp last night patient explains pain was lower epigastric, felt similar to acid reflux pain he has had in the past, and resolved with passing gas. No associated symptoms. Nurse reported concern for irregular heart rate, ekg obtained. No change from previous ekgs. Irregularity suspected due to PACs 12 point ROS completed and all other negative except for above mentioned. Family History: Unchanged from Admission Social History: Unchanged from Admission Past Medical History: Unchanged from Admission Objective Active Medications: Acetaminophen (Tylenol Tab*) 650 mg PO Q6H PRN PRN Reason: FEVER/PAIN Last Admin: 08/30/18 13:30 Dose: 650 mg Albuterol (Ventolin Hfa Inhaler*) 2 puff INH Q4H PRN PRN Reason: SHORTNESS OF BREATH Last Admin: 08/30/18 01:36 Dose: 2 puff Atorvastatin Calcium (Lipitor*) 20 mg PO DAILY [facility] Last Admin: 08/30/18 08:35 Dose: 20 mg Cyclobenzaprine HCl (Flexeril Tab*) 5 mg PO TID PRN PRN Reason: SPASMS - BACK Last Admin: 08/30/18 00:35 Dose: 5 mg Dextrose (D50w Syringe 50 Ml*) 12.5 gm IV PUSH .FOR FS < 60 - SS PRN PRN Reason: FS < 60 Docusate Sodium (Colace Cap*) 100 mg PO BID [facility] Last Admin: 08/30/18 22:56 Dose: 100 mg Enoxaparin Sodium (Lovenox(*)) 40 mg SUBCUT Q24H [facility] Last Admin: 08/30/18 22:56 Dose: 40 mg Ferrous Sulfate (Ferrous Sulfate Tab*) 325 mg PO BID [facility] Last Admin: 08/30/18 22:55 Dose: 325 mg Gabapentin (Neurontin Cap(*)) 100 mg PO TID [facility] Last Admin: 08/30/18 22:55 Dose: 100 mg Hydralazine HCl (Apresoline Iv*) 5 mg IV SLOW PU Q6H PRN PRN Reason: BLOOD PRESSURE Last Admin: 08/31/18 00:12 Dose: 5 mg Hydrochlorothiazide (Hydrodiuril Tab*) 12.5 mg PO DAILY [facility] Last Admin: 08/30/18 13:24 Dose: 12.5 mg Piperacillin Sod/Tazobactam (Sod 3.375 gm/ Sodium Chloride) 100 mls @ 25 mls/ hr IVPB Q8HR@0000,0800,1600 [facility] Last Admin: 08/31/18 07:48 Dose: 25 mls/hr Insulin Human Lispro (Humalog*) 0 units SUBCUT ACHS [facility]; Protocol Last Admin: 08/31/18 07:53 Dose: Not Given Levothyroxine Sodium (Synthroid Tab*) 25 mcg PO DAILY@0600 [facility] Last Admin: 08/31/18 05:17 Dose: 25 mcg Lisinopril (Prinivil Tab*) 20 mg PO DAILY [facility] Last Admin: 08/30/18 08:32 Dose: 20 mg Metformin HCl (Glucophage*) 1,000 mg PO BID [facility] Last Admin: 08/30/18 22:56 Dose: 1,000 mg Nifedipine (Procardia Xl Tab*) 30 mg PO DAILY [facility] Last Admin: 08/30/18 08:31 Dose: 30 mg Nystatin (Nystatin Top Powder*) 1 applic TOPICAL BID [facility] Last Admin: 08/30/18 23:03 Dose: 1 applic Vital Signs - 8 hr 08/31/18 08/31/18 03:13 07:19 Temperature 98.2 F 98.3 F Pulse Rate 90 88 Respiratory 24 20 Rate Blood Pressure 131/56 157/78 (mmHg) O2 Sat by Pulse 90 94 Oximetry Oxygen Devices in Use Now: None Appearance: Comfortabl and NAD Eyes: No Scleral Icterus Ears/Nose/Mouth/Throat: Clear Oropharnyx, Mucous Membranes Moist Neck: NL Appearance and Movements; NL JVP Respiratory: Symmetrical Chest Expansion and Respiratory Effort, - - Mildly decreased aeration. Wheezing heard throughout Cardiovascular: NL Sounds; No Murmurs; No JVD, RRR, - - Bilat LE edema with right worse than left Abdominal: NL Sounds; No Tenderness; No Distention Extremities: No Clubbing, Cyanosis, - - edema as mentioned above Neurological: Alert and Oriented x 3 Nutrition: Taking PO's Result Diagrams: 08/31/18 09:46 08/31/18 09:46 Additional Lab and Data: Lab Results 08/28/18 08/28/18 08/28/18 Range/Units 18:04 18:04 18:04 WBC 9.5 (3.5-10.8) 10^3/ul RBC 3.80 L (4.00-5.40) 10^6/ul Hgb 11.4 L (14.0-18.0) g/dl Hct 34 L (42-52) % MCV 88 (80-94) fL MCH 30 (27-31) pg MCHC 34 (31-36) g/dl RDW 13 (10.5-15) % Plt Count 285 (150-450) 10^3/ul MPV 7.9 (7.4-10.4) um3 Neut % (Auto) 72.8 (38-83) % Lymph % (Auto) 13.5 L (25-47) % [place] % (Auto) 6.0 (0-7) % Eos % (Auto) 6.9 H (0-6) % Baso % (Auto) 0.8 (0-2) % Absolute Neuts (auto) 6.9 (1.5-7.7) 10^3/ul Absolute Lymphs (auto) 1.3 (1.0-4.8) 10^3/ul Absolute Monos (auto) 0.6 (0-0.8) 10^3/ul Absolute Eos (auto) 0.7 H (0-0.6) 10^3/ul Absolute Basos (auto) 0.1 (0-0.2) 10^3/ul Absolute Nucleated RBC 0 10^3/ul Nucleated RBC % 0 Sodium 138 (135-145) mmol/L Potassium 4.2 (3.5-5.0) mmol/L Chloride 103 (101-111) mmol/L Carbon Dioxide 27 (22-32) mmol/L Anion Gap 8 (2-11) mmol/L BUN 28 H (6-24) mg/dL Creatinine 1.45 H (0.67-1.17) mg/dL Est GFR ( Amer) 56.5 (>60) Est GFR (Non-Af Amer) 46.7 (>60) BUN/Creatinine Ratio 19.3 (8-20) Glucose 178 H (70-100) mg/dL Lactic Acid 2.0 (0.5-2.0) mmol/L Calcium 9.3 (8.6-10.3) mg/dL Total Bilirubin 0.50 (0.2-1.0) mg/dL AST 18 (13-39) U/L ALT 17 (7-52) U/L Alkaline Phosphatase 71 (34-104) U/L C-Reactive Protein 15.56 H (<8.01) mg/L Total Protein 6.6 (6.4-8.9) g/dL Albumin 3.9 (3.2-5.2) g/dL Globulin 2.7 (2-4) g/dL Albumin/Globulin Ratio 1.4 (1-3) Microbiology and Other Data: Microbiology 08/28/18 23:30 Skin and Soft Tissue MRSA/MSSA (PCR - Final Wound - Right Leg Mrsa Negative S.aureus Negative Gram Stain - Final 08/28/18 23:30 Nasal Screen MRSA (PCR) - Final Nasal Mrsa Not Detected Assess/Plan/Problems-Billing Assessment: Mr. Pastor is a 83yo with PMH of DM2, HTN, and PVD who presented with worsening erythema, edema, and weeping to BLE and has failed 3 different outpatient antibiotics for cellulitis. - Patient Problems (1) Cellulitis of both lower extremities Comment: - Afebrile - Appreciate wound and ID consults - Continue zosyn (2) Chest pain Comment: - CP overnight. EKG obtained and reviewed by Dr Sim. - No cp today. Reports pain was similar to acid reflux, resolved with passing gas, and no associated symptoms. - Repeat EKG today and similar to previous EKGs. (3) COPD (chronic obstructive pulmonary disease) Comment: - Patient asymptomatic. - Wheezing and decreased aeration appreciated - Hx of 40 yr smoking approx a pack a day somedays more - Nebulizers ordered. (4) Diabetes mellitus, type 2 Comment: - A1C 7.2% - Continue metformin, lispro SS (5) HTN (hypertension) Comment: - SBPs 150s - Continue nifedipine, lisinopril - Resume HCTZ - Hydralazine PRN for SBP >160 (6) Gait difficulty Comment: - Per nurse patient has difficulty standing and pivoting due to weakness - Patient reports at home before admission to hospital he was using scooter and was able to transfer self from scooter to commode and back. - PT/OT consult ordered (7) Hyperlipidemia Comment: - Continue atorvastatin (8) Hypothyroidism Comment: - Continue levothyroxine (9) PVD (peripheral vascular disease) Comment: - Open, dry wounds to BLE. No weeping noted. No drainage. - Appreciate wound consult (10) DVT prophylaxis Comment: - Lovenox (11) Full code status Comment: - Full Code Status and Disposition: Change to inpatient. Patient will be here >2 midnights d/t pending ID and wound consults. PT/OT consult. Attending: Arturo Harris
[2018-08-31] MEDS ORDERED: Senna TAB PO PRN (09:16)
[2018-08-31] MEDS: Hydrochlorothiazide TAB* 25 MG PO SCH (09:50)
[2018-08-31] MEDS: Atorvastatin* 40 MG TAB PO SCH ×2 (09:53→09:58)
[2018-08-31] MEDS: NIFEdipine ER TAB* 30 MG PO SCH (09:53)
[2018-08-31] MEDS: Lisinopril TAB* 10 MG PO SCH (09:53)
[2018-08-31] MEDS: Ferrous Sulfate TAB* 325 MG PO SCH ×2 (09:54→21:39)
[2018-08-31] MEDS: Gabapentin CAP(*) 100 MG PO SCH ×3 (09:54→21:39)
[2018-08-31] MEDS: Docusate CAP* 100 MG PO SCH ×2 (09:55→21:40)
[2018-08-31] MEDS: metFORMIN* 1,000 MG TAB PO SCH ×2 (09:55→21:40)
[2018-08-31 09:56] LABS: ABS Basophils 0.1 10^3/ul (0-0.2); ABS Eosinophils 0.5 10^3/ul (0-0.6); ABS Lymphocytes 1.3 10^3/ul (1.0-4.8); ABS Monocytes 0.7 10^3/ul (0-0.8); ABS Neutrophils 7.8 10^3/ul (1.5-7.7); ABS Nucleated RBC 0 10^3/ul; Eosinophil % 4.9 % (0-6); Hematocrit 31 % (42-52); Hemoglobin 10.5 g/dl (14.0-18.0); Lymphocyte % 12.9 % (25-47); Mean Corpuscular HGB Conc 34 g/dl (31-36); Mean Corpuscular Hemoglobin 30 pg (27-31); Mean Corpuscular Volume 87 fL (80-94); Mean Platelet Volume 7.3 um3 (7.4-10.4); Nucleated Red Blood Cells % 0; Platelet Count 256 10^3/ul (150-450); Red Blood Count 3.54 10^6/ul (4.00-5.40); Red Cell Distribution Width 13 % (10.5-15); White Blood Count 10.4 10^3/ul (3.5-10.8)
[2018-08-31 10:12] LABS: EGFR Non-African American 53.5 (>60)
[2018-08-31] MEDS: Albuterol/Ipratropium NEB.SOL* Albuterol 2.5 MG/Ipratropium 0.5 MG 3 ML INH SCH ×2 (12:38→19:36)
[2018-08-31] MEDS: Nystatin TOP POWDER* 15 GM BTL TOPICAL SCH ×2 (15:01→22:06)
[2018-08-31] MEDS ORDERED: Vancomycin Trough Check NOTE FOLLOW UP ONE (19:30)
[2018-08-31] MEDS ORDERED: Albuterol/Ipratropium NEB.SOL* Albuterol 2.5 MG/Ipratropium 0.5 MG 3 ML INH PRN (19:45)
[2018-08-31] MEDS: Enoxaparin(*) 40 MG/0.4 ML SYR SUBCUT SCH (21:40)
[2018-09-01] MEDS: Piperacillin/Tazobac ADVAN(*) 3.375 GM in NS 0.9% 100 ML* 100 ML IVPB SCH ×2 (00:13→08:23)
[2018-09-01] MEDS: Acetaminophen TAB* 325 MG PO PRN ×2 (00:15→08:30)
[2018-09-01] MEDS: Levothyroxine TAB* 25 MCG TAB PO SCH (06:14)
[2018-09-01 06:18] LABS: ABS Basophils 0.1 10^3/ul (0-0.2); ABS Eosinophils 0.8 10^3/ul (0-0.6); ABS Lymphocytes 1.6 10^3/ul (1.0-4.8); ABS Monocytes 0.5 10^3/ul (0-0.8); ABS Nucleated RBC 0 10^3/ul; Eosinophil % 9.7 % (0-6); Hematocrit 30 % (42-52); Hemoglobin 9.8 g/dl (14.0-18.0); Lymphocyte % 20.1 % (25-47); Mean Corpuscular HGB Conc 33 g/dl (31-36); Mean Corpuscular Hemoglobin 29 pg (27-31); Mean Corpuscular Volume 88 fL (80-94); Mean Platelet Volume 7.5 um3 (7.4-10.4); Nucleated Red Blood Cells % 0; Platelet Count 260 10^3/ul (150-450); Red Blood Count 3.37 10^6/ul (4.00-5.40); Red Cell Distribution Width 13 % (10.5-15); White Blood Count 7.9 10^3/ul (3.5-10.8)
[2018-09-01 06:35] LABS: EGFR Non-African American 52.5 (>60)
[2018-09-01] MEDS: Insulin LISPRO* 1 UNITS UNIT SUBCUT SCH ×4 (07:23→20:01)
[2018-09-01] MEDS: Nystatin TOP POWDER* 15 GM BTL TOPICAL SCH ×2 (08:24→23:07)
[2018-09-01] MEDS: NIFEdipine ER TAB* 30 MG PO SCH (08:24)
[2018-09-01] MEDS: Ferrous Sulfate TAB* 325 MG PO SCH ×2 (08:24→20:10)
[2018-09-01] MEDS: Gabapentin CAP(*) 100 MG PO SCH ×3 (08:25→20:12)
[2018-09-01] MEDS: Lisinopril TAB* 10 MG PO SCH (08:25)
[2018-09-01] MEDS: Hydrochlorothiazide TAB* 25 MG PO SCH (08:25)
[2018-09-01] MEDS: metFORMIN* 1,000 MG TAB PO SCH ×2 (08:25→20:11)
[2018-09-01] MEDS: Docusate CAP* 100 MG PO SCH ×2 (08:25→21:29)
[2018-09-01] MEDS: Atorvastatin* 40 MG TAB PO SCH (08:26)
[2018-09-01] MEDS: traMADol TAB* 50 MG PO PRN ×2 (12:39→23:55)
[2018-09-01] MEDS ORDERED: Magnesium Sulfate 1 GM IV* 1 GM/100 ML BAG IV ONE (12:54)
[2018-09-01] MEDS ORDERED: Potassium Chlor TAB* 20 MEQ TAB.ER PO ONE (12:54)
[2018-09-01] MEDS ORDERED: Levofloxacin 750 MG IVPREMIX(* 750 MG/150 ML BAG IVPB ONE (13:00)
--- NOTE | 2018-09-01 13:07 | PN ---
Subjective Date of Service: 09/01/18 Interval History: Resting in chair. Reports pain in right byrd occasionally. Was just given PO pain medications. Denies sob, cp, n/v/d, or palpitations. We discussed urinary incontinence and he reports this is baseline for him as he "dribbles" often and has been wearing depends at home. Reports he does feel the urge to void and is using urinal. Reports BM yesterday. 12 point ROS completed and all others negative except above mentioned. Family History: Unchanged from Admission Social History: Unchanged from Admission Past Medical History: Unchanged from Admission Objective Active Medications: Acetaminophen (Tylenol Tab*) 650 mg PO Q6H PRN PRN Reason: FEVER/PAIN Last Admin: 09/01/18 08:30 Dose: 650 mg Albuterol (Ventolin Hfa Inhaler*) 2 puff INH Q4H PRN PRN Reason: SHORTNESS OF BREATH Last Admin: 08/30/18 01:36 Dose: 2 puff Albuterol/Ipratropium (Duoneb (Albuterol 2.5 Mg/Ipratropium 0.5 Mg)) 1 neb INH Q4H PRN PRN Reason: SOB/WHEEZING Atorvastatin Calcium (Lipitor*) 20 mg PO DAILY [facility] Last Admin: 09/01/18 08:26 Dose: 20 mg Cyclobenzaprine HCl (Flexeril Tab*) 5 mg PO TID PRN PRN Reason: SPASMS - BACK Last Admin: 08/30/18 00:35 Dose: 5 mg Dextrose (D50w Syringe 50 Ml*) 12.5 gm IV PUSH .FOR FS < 60 - SS PRN PRN Reason: FS < 60 Docusate Sodium (Colace Cap*) 100 mg PO BID [facility] Last Admin: 09/01/18 08:25 Dose: Not Given Enoxaparin Sodium (Lovenox(*)) 40 mg SUBCUT Q24H [facility] Last Admin: 08/31/18 21:40 Dose: 40 mg Ferrous Sulfate (Ferrous Sulfate Tab*) 325 mg PO BID [facility] Last Admin: 09/01/18 08:24 Dose: 325 mg Gabapentin (Neurontin Cap(*)) 100 mg PO TID [facility] Last Admin: 09/01/18 08:25 Dose: 100 mg Hydralazine HCl (Apresoline Iv*) 5 mg IV SLOW PU Q6H PRN PRN Reason: BLOOD PRESSURE Last Admin: 08/31/18 00:12 Dose: 5 mg Hydrochlorothiazide (Hydrodiuril Tab*) 12.5 mg PO DAILY [facility] Last Admin: 09/01/18 08:25 Dose: 12.5 mg Cefazolin Sodium 1 gm/ Sodium (Chloride) 50 mls @ 200 mls/hr IVPB Q8H [facility] Levofloxacin/Dextrose (Levaquin 750 Mg Ivpremix(*)) 750 mg in 150 mls @ 100 mls /hr IVPB Q24H [facility] Magnesium Sulfate/Dextrose (Magnesium Sulfate 1 Gm Iv*) 1 gm in 100 mls @ 200 mls/hr IV ONCE ONE Stop: 09/01/18 13:23 Insulin Human Lispro (Humalog*) 0 units SUBCUT ACHS [facility]; Protocol Last Admin: 09/01/18 12:40 Dose: 1 unit Levothyroxine Sodium (Synthroid Tab*) 25 mcg PO DAILY@0600 [facility] Last Admin: 09/01/18 06:14 Dose: 25 mcg Lisinopril (Prinivil Tab*) 20 mg PO DAILY [facility] Last Admin: 09/01/18 08:25 Dose: 20 mg Metformin HCl (Glucophage*) 1,000 mg PO BID [facility] Last Admin: 09/01/18 08:25 Dose: 1,000 mg Nifedipine (Procardia Xl Tab*) 30 mg PO DAILY [facility] Last Admin: 09/01/18 08:24 Dose: 30 mg Nystatin (Nystatin Top Powder*) 1 applic TOPICAL BID [facility] Last Admin: 09/01/18 08:24 Dose: 1 applic Senna (Senokot Tab*) 1 tab PO DAILY PRN PRN Reason: CONSTIPATION Last Admin: 08/31/18 09:52 Dose: 1 tab Tramadol HCl (Ultram*) 50 mg PO Q12H PRN PRN Reason: PAIN Last Admin: 09/01/18 12:39 Dose: 50 mg Vital Signs - 8 hr 09/01/18 09/01/18 09/01/18 07:11 07:24 08:25 Temperature 98.0 F Pulse Rate 80 Respiratory 16 20 20 Rate Blood Pressure 143/52 (mmHg) O2 Sat by Pulse 92 Oximetry 09/01/18 09/01/18 09/01/18 10:25 11:33 12:39 Temperature 97.4 F Pulse Rate 85 Respiratory 20 18 22 Rate Blood Pressure 152/74 (mmHg) O2 Sat by Pulse 95 Oximetry Oxygen Devices in Use Now: None Appearance: Cooperative, NAD Eyes: No Scleral Icterus Ears/Nose/Mouth/Throat: Clear Oropharnyx, Mucous Membranes Moist Neck: NL Appearance and Movements; NL JVP Respiratory: Symmetrical Chest Expansion and Respiratory Effort - Decrease aeration. Sporadic wheezing. Cardiovascular: - - Occasional irregularity heard. No murmur. Bilat le edema with left > right Abdominal: NL Sounds; No Tenderness; No Distention Lymphatic: No Cervical Adenopathy Extremities: No Clubbing, Cyanosis Skin: - - Bilat le reddened with scabbing and scaling. Mild weeping noted. Open area on right anterior byrd. Neurological: Alert and Oriented x 3 Nutrition: Taking PO's Result Diagrams: 09/01/18 05:54 09/01/18 05:54 Additional Lab and Data: . Microbiology and Other Data: . Assess/Plan/Problems-Billing Assessment: Mr. Pastor is a 83yo with PMH of DM2, HTN, and PVD who presented with worsening erythema, edema, and weeping to BLE and has failed 3 different outpatient antibiotics for cellulitis. - Patient Problems (1) Cellulitis of both lower extremities Comment: - Afebrile - Appreciated wound care consult - ID consult ordered - Discontinue Zosyn - Levaquin and Cefazolin ordered. (2) Irregular heart beats Comment: - Occasional irregularity heard. - Mag low, therefore, will replace and recheck tomorrow. - Potassium PO ordered to get value closer to 4. - If no improvement with electrolyte replacement or any new symptoms, will repeat ekg - Patient currently asymptomatic. (3) COPD (chronic obstructive pulmonary disease) Comment: - Patient asymptomatic. - Hx of 40 yr smoking approx a pack a day somedays more - Nebulizers ordered. - Marked decrease in aeration. Wheezing also noted. - Prednisone PO ordered (4) Chest pain Comment: - No chest pain reported. (5) Diabetes mellitus, type 2 Comment: - A1C 7.2% - Continue metformin, lispro SS (6) HTN (hypertension) Comment: - SBPs 150s - Continue nifedipine, lisinopri, and HCTZ - Hydralazine PRN for SBP >160 (7) Gait difficulty Comment: - PT/OT following - Question of subacute rehab placement (8) Hyperlipidemia Comment: - Continue atorvastatin (9) Hypothyroidism Comment: - Continue levothyroxine (10) PVD (peripheral vascular disease) Comment: - Wounds to BLE. Weeping, redness noted. - Wound consulted and recommendations documented in chart (11) DVT prophylaxis Comment: - Lovenox (12) Full code status Comment: - Full Code Status and Disposition: Inpatient. PT/OT following. Possible subacute rehab when medically stable. Attending: Chaparro Martinez
[2018-09-01] MEDS: Albuterol HFA INHALER* 8 gm MDI INH PRN (13:12)
[2018-09-01] MEDS: ceFAZolin 1 GM ADVAN(*) 1 GM in NS 0.9% 50 ML* 50 ML IVPB SCH ×2 (14:44→20:13)
[2018-09-01] MEDS: Enoxaparin(*) 40 MG/0.4 ML SYR SUBCUT SCH (23:08)
[2018-09-02] MEDS: Levothyroxine TAB* 25 MCG TAB PO SCH (05:16)
[2018-09-02] MEDS: ceFAZolin 1 GM ADVAN(*) 1 GM in NS 0.9% 50 ML* 50 ML IVPB SCH (05:16)
[2018-09-02 06:52] LABS: ABS Basophils 0.1 10^3/ul (0-0.2); ABS Eosinophils 0.9 10^3/ul (0-0.6); ABS Lymphocytes 1.3 10^3/ul (1.0-4.8); ABS Monocytes 0.6 10^3/ul (0-0.8); ABS Neutrophils 5.7 10^3/ul (1.5-7.7); ABS Nucleated RBC 0 10^3/ul; Eosinophil % 10.9 % (0-6); Hematocrit 29 % (42-52); Hemoglobin 10.3 g/dl (14.0-18.0); Mean Corpuscular HGB Conc 35 g/dl (31-36); Mean Corpuscular Hemoglobin 31 pg (27-31); Mean Corpuscular Volume 87 fL (80-94); Mean Platelet Volume 7.8 um3 (7.4-10.4); Nucleated Red Blood Cells % 0; Platelet Count 278 10^3/ul (150-450); Red Blood Count 3.36 10^6/ul (4.00-5.40); Red Cell Distribution Width 13 % (10.5-15); White Blood Count 8.6 10^3/ul (3.5-10.8)
[2018-09-02 07:07] LABS: EGFR Non-African American 52.5 (>60)
[2018-09-02] MEDS: Insulin LISPRO* 1 UNITS UNIT SUBCUT SCH ×4 (08:02→22:10)
[2018-09-02] MEDS: Lisinopril TAB* 10 MG PO SCH (08:22)
[2018-09-02] MEDS: Ferrous Sulfate TAB* 325 MG PO SCH ×2 (08:22→22:09)
[2018-09-02] MEDS: Gabapentin CAP(*) 100 MG PO SCH ×3 (08:23→22:09)
[2018-09-02] MEDS: predniSONE TAB* 20 MG PO SCH (08:24)
[2018-09-02] MEDS: Acetaminophen TAB* 325 MG PO PRN (08:24)
[2018-09-02] MEDS: NIFEdipine ER TAB* 30 MG PO SCH (08:24)
[2018-09-02] MEDS: metFORMIN* 1,000 MG TAB PO SCH ×2 (08:24→22:09)
[2018-09-02] MEDS ORDERED: Magnesium Sulfate 2 GM IV* 2 GM/50 ML BAG IVPB ONE (08:24)
[2018-09-02] MEDS: Cyclobenzaprine TAB* 10 MG PO PRN (08:25)
[2018-09-02] MEDS: Hydrochlorothiazide TAB* 25 MG PO SCH (08:26)
[2018-09-02] MEDS: Atorvastatin* 40 MG TAB PO SCH (08:26)
[2018-09-02] MEDS: Docusate CAP* 100 MG PO SCH ×2 (08:29→22:10)
[2018-09-02] MEDS: Nystatin TOP POWDER* 15 GM BTL TOPICAL SCH ×2 (09:00→22:12)
--- NOTE | 2018-09-02 11:10 | PN ---
Subjective Date of Service: 09/02/18 Interval History: Patient sitting in wheelchair. Reports pain in bilat le is in anterior legs. Reports pain has improved since yesterday and rates pain at "4". EKG obtained to reassess PACs/Irregularity. Reviewed EKG and compared with previous with Dr Martinez. PACs noted and min ST depression in V3 and V4. Patient is asymptomatic denying chest pain/pressure, palpitations, sob, n/v, dizziness or other associated symptoms. 12 ROS completed and all other negative expect above mentioned Family History: Unchanged from Admission Social History: Unchanged from Admission Past Medical History: Unchanged from Admission Objective Active Medications: Acetaminophen (Tylenol Tab*) 650 mg PO Q6H PRN PRN Reason: FEVER/PAIN Last Admin: 09/02/18 08:24 Dose: 650 mg Albuterol (Ventolin Hfa Inhaler*) 2 puff INH Q4H PRN PRN Reason: SHORTNESS OF BREATH Last Admin: 09/01/18 13:12 Dose: 2 puff Albuterol/Ipratropium (Duoneb (Albuterol 2.5 Mg/Ipratropium 0.5 Mg)) 1 neb INH Q4H PRN PRN Reason: SOB/WHEEZING Atorvastatin Calcium (Lipitor*) 20 mg PO DAILY [facility] Last Admin: 09/02/18 08:26 Dose: 20 mg Cyclobenzaprine HCl (Flexeril Tab*) 5 mg PO TID PRN PRN Reason: SPASMS - BACK Last Admin: 09/02/18 08:25 Dose: 5 mg Dextrose (D50w Syringe 50 Ml*) 12.5 gm IV PUSH .FOR FS < 60 - SS PRN PRN Reason: FS < 60 Docusate Sodium (Colace Cap*) 100 mg PO BID [facility] Last Admin: 09/02/18 08:29 Dose: Not Given Enoxaparin Sodium (Lovenox(*)) 40 mg SUBCUT Q24H [facility] Last Admin: 09/01/18 23:08 Dose: 40 mg Ferrous Sulfate (Ferrous Sulfate Tab*) 325 mg PO BID [facility] Last Admin: 09/02/18 08:22 Dose: 325 mg Gabapentin (Neurontin Cap(*)) 100 mg PO TID [facility] Last Admin: 09/02/18 08:23 Dose: 100 mg Hydralazine HCl (Apresoline Iv*) 5 mg IV SLOW PU Q6H PRN PRN Reason: BLOOD PRESSURE Last Admin: 08/31/18 00:12 Dose: 5 mg Hydrochlorothiazide (Hydrodiuril Tab*) 12.5 mg PO DAILY [facility] Last Admin: 09/02/18 08:26 Dose: 12.5 mg Cefazolin Sodium 1 gm/ Sodium (Chloride) 50 mls @ 200 mls/hr IVPB Q8H [facility] Last Admin: 09/02/18 05:16 Dose: 200 mls/hr Levofloxacin/Dextrose (Levaquin 500 Mg Ivpremix(*)) 500 mg in 100 mls @ 100 mls /hr IVPB Q24H [facility] Insulin Human Lispro (Humalog*) 0 units SUBCUT ACHS [facility]; Protocol Last Admin: 09/02/18 08:02 Dose: Not Given Levothyroxine Sodium (Synthroid Tab*) 25 mcg PO DAILY@0600 [facility] Last Admin: 09/02/18 05:16 Dose: 25 mcg Lisinopril (Prinivil Tab*) 20 mg PO DAILY [facility] Last Admin: 09/02/18 08:22 Dose: 20 mg Metformin HCl (Glucophage*) 1,000 mg PO BID [facility] Last Admin: 09/02/18 08:24 Dose: 1,000 mg Nifedipine (Procardia Xl Tab*) 30 mg PO DAILY [facility] Last Admin: 09/02/18 08:24 Dose: 30 mg Nystatin (Nystatin Top Powder*) 1 applic TOPICAL BID [facility] Last Admin: 09/01/18 23:07 Dose: 1 applic Prednisone (Deltasone Tab*) 40 mg PO DAILY [facility] Last Admin: 09/02/18 08:24 Dose: 40 mg Senna (Senokot Tab*) 1 tab PO DAILY PRN PRN Reason: CONSTIPATION Last Admin: 08/31/18 09:52 Dose: 1 tab Tramadol HCl (Ultram*) 50 mg PO Q12H PRN PRN Reason: PAIN Last Admin: 09/01/18 23:55 Dose: 50 mg Vital Signs - 8 hr 09/02/18 09/02/18 09/02/18 03:25 03:40 06:45 Temperature 98.2 F 97.7 F Pulse Rate 91 92 Respiratory 22 20 Rate Blood Pressure 160/74 152/76 156/74 (mmHg) O2 Sat by Pulse 93 94 Oximetry 09/02/18 09/02/18 09/02/18 07:47 08:23 08:25 Temperature Pulse Rate 95 Respiratory 20 20 Rate Blood Pressure 150/34 (mmHg) O2 Sat by Pulse 95 Oximetry Oxygen Devices in Use Now: None Appearance: Comfortable, cooperative, and NAD Eyes: No Scleral Icterus Ears/Nose/Mouth/Throat: Clear Oropharnyx, Mucous Membranes Moist Neck: NL Appearance and Movements; NL JVP Respiratory: Symmetrical Chest Expansion and Respiratory Effort, - - Scant wheezing heard. Improved aeration compared to yesterday Cardiovascular: - - Occasional irregularity heard. No murmur or JVD. Bilat LE edame +1 Lymphatic: No Cervical Adenopathy Extremities: No Clubbing, Cyanosis Skin: - - Bilat LE reddened with scales and crusting. Open/weeping area on right byrd. Neurological: Alert and Oriented x 3 Nutrition: Taking PO's Result Diagrams: 09/02/18 06:20 09/02/18 06:20 Additional Lab and Data: . Microbiology and Other Data: . Assess/Plan/Problems-Billing Assessment: Mr. Pastor is a 83yo with PMH of DM2, HTN, and PVD who presented with worsening erythema, edema, and weeping to BLE and has failed 3 different outpatient antibiotics for cellulitis. - Patient Problems (1) Cellulitis of both lower extremities Comment: - Afebrile - Appreciated wound care consult - ID consulted. Recommended discontinuing Cefazolin and continue Levaquin for 4 to 5 more days - ID suggests that etiology could be partially due to reaction to topical cream patient was applying to legs, therefore, patient encourage to not apply topical creams/ointments and only wash with soap and water. (2) Irregular heart beats Comment: - Occasional irregularity heard. - Mag 1 gram given yesterday and Mag 1.6 today therefore 2 g ordered. - Potassium replaced yesterday and now 4. - Patient currently asymptomatic. - EKG repeated and PACs noted. In addition min ST depression in V3 and V4, reviewed with Dr Martinez, patient asymptomatic, we will continue to monitor, patient will follow up witn PCP at discharge (3) COPD (chronic obstructive pulmonary disease) Comment: - Patient asymptomatic. - Hx of 40 yr smoking approx a pack a day somedays more - Nebulizers/Inhalers ordered. - Increased in aeration from yesterday. Sparse wheezing noted. - Continue Prednisone PO as ordered (4) Diabetes mellitus, type 2 Comment: - A1C 7.2% - Continue metformin, lispro SS (5) HTN (hypertension) Comment: - SBPs 150s - Continue nifedipine, lisinopri, and HCTZ - Hydralazine PRN for SBP >160 (6) Gait difficulty Comment: - PT/OT following - Subacute rehab placement (7) Hyperlipidemia Comment: - Continue atorvastatin (8) Hypothyroidism Comment: - Continue levothyroxine (9) PVD (peripheral vascular disease) Comment: - Wounds to BLE. Weeping, redness noted. - Wound consulted and recommendations documented in chart (10) DVT prophylaxis Comment: - Lovenox (11) Full code status Comment: - Full Code Status and Disposition: Inpatient. PT/OT following. Subacute rehab when medically stable. Attending: Chaparro Martinez
--- NOTE | 2018-09-02 11:45 | CONS ---
CONSULTATION REPORT: DATE OF CONSULT: 09/02/18 REQUESTING PROVIDER: Rafaela Barrow NP. REASON FOR CONSULTATION: Cellulitis. IMPRESSION: 1. Bilateral lower extremity wounds complicated by cellulitis, possibly dermatitis from topical therapy, overall much improved. Wound on the right leg grew group B Strep and Pseudomonas, still probably staphylococcal. 2. Venous insufficiency. 3. Type 2 diabetes. RECOMMENDATIONS: Levaquin 500 mg by mouth for 5 more days, avoid the topical treatment he is using, can use Vaseline with gauze wrapping for now. HISTORY OF PRESENT ILLNESS: This is an 83-year-old male with some venous insufficiency wounds on both legs that have been there for a couple of months. He had developed some erythema around the wounds over the last couple of weeks and had had various antibiotic prescriptions without much improvement. He was applying a topical treatment with dressing up until the time he came to the hospital. He came now because things were getting worse and worse. He did not have a white count. C- reactive protein was 15. He was febrile initially which has resolved. He has been on initially Zosyn and now Levaquin and Ancef with some improvement and eventually resolution of the erythema. The swelling has gone down. The wounds are scabbed over. He feels well, energy is decreased though. PAST MEDICAL HISTORY: 1. Type 2 diabetes. 2. Venous insufficiency with lymphedema. 3. Hypertension. 4. Benign prostatic hypertrophy. 5. Peripheral vascular disease. 6. TIA. 7. Low back pain. MEDICATIONS: 1. Tylenol. 2. Albuterol. 3. Flexeril. 4. Enoxaparin. 5. Gabapentin. 6. Hydralazine. 7. Hydrochlorothiazide. 8. Cefazolin 1 g IV every 8 hours. 9. Levaquin 500 mg every 24 hours. 10. Metformin. 11. Nifedipine. 12. Prednisone 40 mg a day. 13. Tramadol. 14. Senna. ALLERGIES: No known drug allergies. FAMILY HISTORY: No recurrent infections. SOCIAL HISTORY: He lives outside of [place]. He is a . He has no sick contacts. REVIEW OF SYSTEMS: All negative except as noted above to a 14-point review of systems. PHYSICAL EXAM: Vital Signs: Temperature 36.5, heart rate 90, respiratory rate 20, blood pressure 156/74, oxygen saturation 95% on room air. General: He is awake, not in distress. Neurologic: He is oriented x3. Follows all commands. HEENT: There is no conjunctival hemorrhage. Oropharynx: Without lesions. Neck : Supple without mass. Heart: Regular rate and rhythm without murmurs, rubs or gallops. Lungs are clear to auscultation bilaterally. Abdomen: Soft, nontender, nondistended. There are bowel sounds present. Skin: Bilateral lower extremity venous stasis changes. Anterior healing eschar with surrounding mild erythema. 1+ dorsalis pedis pulses bilaterally. Musculoskeletal: There is no spine tenderness to palpation. LABORATORY DATA: White blood cell count 8, hemoglobin 10, platelets 278,000. Creatinine 1.3. Please see impressions and recommendations outlined above. Thank you for asking me to see Mr. Pastor in consultation. [id number]/[facility] #: [id number] [place]
[2018-09-02] MEDS: Levofloxacin TAB* 500 MG PO SCH (12:23)
[2018-09-02] MEDS ORDERED: Levofloxacin 500 MG IVPREMIX(* 500 MG/100 ML BAG IVPB SCH (14:00)
[2018-09-02] MEDS: Enoxaparin(*) 40 MG/0.4 ML SYR SUBCUT SCH (22:10)
[2018-09-03] MEDS: Levothyroxine TAB* 25 MCG TAB PO SCH (05:25)
[2018-09-03 07:36] LABS: ABS Basophils 0 10^3/ul (0-0.2); ABS Eosinophils 0.1 10^3/ul (0-0.6); ABS Lymphocytes 1.5 10^3/ul (1.0-4.8); ABS Monocytes 0.6 10^3/ul (0-0.8); ABS Neutrophils 5.9 10^3/ul (1.5-7.7); ABS Nucleated RBC 0 10^3/ul; Eosinophil % 1.2 % (0-6); Hematocrit 29 % (42-52); Hemoglobin 9.7 g/dl (14.0-18.0); Lymphocyte % 18.8 % (25-47); Mean Corpuscular HGB Conc 33 g/dl (31-36); Mean Corpuscular Hemoglobin 29 pg (27-31); Mean Corpuscular Volume 88 fL (80-94); Mean Platelet Volume 7.9 um3 (7.4-10.4); Nucleated Red Blood Cells % 0; Platelet Count 282 10^3/ul (150-450); Red Blood Count 3.29 10^6/ul (4.00-5.40); Red Cell Distribution Width 13 % (10.5-15); White Blood Count 8.1 10^3/ul (3.5-10.8)
[2018-09-03 07:47] LABS: EGFR Non-African American 51.6 (>60)
[2018-09-03] MEDS: Insulin LISPRO* 1 UNITS UNIT SUBCUT SCH ×2 (07:56→12:53)
--- NOTE | 2018-09-03 08:52 | PN ---
Progress Note - Progress Note Date of Service: 09/03/18 SOAP: Subjective: CC: leg wounds HPI: 83 year old man with lymphedema and BL byrd wounds that were complicated by cellulitis. Swelling, redness, drainage improved. No fever, rash, or diarrhea. Objective: Vital Signs Temp 36.9 C 09/03/18 03:01 Pulse 104 09/03/18 03:29 Resp 18 09/03/18 03:01 BP 133/52 09/03/18 03:01 Pulse Ox 93 09/03/18 03:01 Intake & Output 09/02/18 09/03/18 09/03/18 18:59 06:59 18:59 Intake Total 545 210 Balance 545 210 Intake: Oral 545 210 Other: Estimated Void Large Large # Voids 0 1 Gen:awake, no distress HEENT: no thrush Heart:RRR no murmur Lungs:CTA BL Abd:+BS NTND soft Skin: no rash MSK: BL anterior lower legs with multiple eschar, minimal erythema Laboratory Results - last 24 hr 09/02/18 09/02/18 09/02/18 12:15 17:16 21:08 WBC RBC Hgb Hct MCV MCH MCHC RDW Plt Count MPV Neut % (Auto) Lymph % (Auto) [place] % (Auto) Eos % (Auto) Baso % (Auto) Absolute Neuts (auto) Absolute Lymphs (auto) Absolute Monos (auto) Absolute Eos (auto) Absolute Basos (auto) Absolute Nucleated RBC Nucleated RBC % Sodium Potassium Chloride Carbon Dioxide Anion Gap BUN Creatinine Est GFR ( Amer) Est GFR (Non-Af Amer) BUN/Creatinine Ratio Glucose POC Glucose (mg/dL) 250 H 202 H 155 H Calcium Magnesium 09/03/18 09/03/18 05:58 05:58 WBC 8.1 RBC 3.29 L Hgb 9.7 L Hct 29 L MCV 88 MCH 29 MCHC 33 RDW 13 Plt Count 282 MPV 7.9 Neut % (Auto) 72.4 Lymph % (Auto) 18.8 L [place] % (Auto) 7.1 H Eos % (Auto) 1.2 Baso % (Auto) 0.5 Absolute Neuts (auto) 5.9 Absolute Lymphs (auto) 1.5 Absolute Monos (auto) 0.6 Absolute Eos (auto) 0.1 Absolute Basos (auto) 0 Absolute Nucleated RBC 0 Nucleated RBC % 0 Sodium 140 Potassium 4.0 Chloride 103 Carbon Dioxide 29 Anion Gap 8 BUN 19 Creatinine 1.33 H Est GFR ( Amer) 62.4 Est GFR (Non-Af Amer) 51.6 BUN/Creatinine Ratio 14.3 Glucose 115 H POC Glucose (mg/dL) Calcium 8.8 Magnesium 1.9 Assessment: 1. BL LE cellulitis, improving 2. BL LE wound, due to venous stasis 3. obesity 4. CKD 5. T2DM Plan: 1. levaquin 500 mg daily for 3 more days; can use vaseline on wounds if needed 25 minutes floor time >50% face to face in counseling regarding wound care and antibiotics
[2018-09-03] MEDS: Docusate CAP* 100 MG PO SCH (08:57)
[2018-09-03] MEDS: metFORMIN* 1,000 MG TAB PO SCH (09:03)
[2018-09-03] MEDS: Gabapentin CAP(*) 100 MG PO SCH (09:04)
[2018-09-03] MEDS: NIFEdipine ER TAB* 30 MG PO SCH (09:04)
[2018-09-03] MEDS: predniSONE TAB* 20 MG PO SCH (09:04)
[2018-09-03] MEDS: Ferrous Sulfate TAB* 325 MG PO SCH (09:04)
[2018-09-03] MEDS: Lisinopril TAB* 10 MG PO SCH (09:04)
[2018-09-03] MEDS: Atorvastatin* 40 MG TAB PO SCH (09:05)
[2018-09-03] MEDS: Hydrochlorothiazide TAB* 25 MG PO SCH (09:05)
[2018-09-03 09:07] VITALS: BP 144/82
[2018-09-03] MEDS: Nystatin TOP POWDER* 15 GM BTL TOPICAL SCH (10:31)
[2018-09-03] MEDS: Levofloxacin TAB* 500 MG PO SCH (11:45)
--- NOTE | 2018-09-03 12:47 | DS ---
CC: Angela Zapata NP DATE OF ADMISSION: 08/28/2018. DATE OF DISCHARGE: 09/03/2018. PRIMARY CARE PHYSICIAN: Angela Zapata NP. ATTENDING PHYSICIAN: Dr. Chaparro Martinez (dictated by Yessenia Maldonado NP). PRIMARY DIAGNOSES: 1. Bilateral lower extremity wound complicated by cellulitis. 2. Venous insufficiency. 3. Type 2 diabetes. SECONDARY DIAGNOSES: 1. Hypertension. 2. BPH. 3. TIA. 4. Chronic low back pain. CONSULTATIONS WHILE IN THE HOSPITAL: Dr. Serrato, Infectious Disease. PROCEDURES WHILE IN THE HOSPITAL: No procedures. STUDIES WHILE IN THE HOSPITAL: 1. Bilateral lower leg x-rays: Impression: No specific evidence for osteomyelitis. 2. Bilateral venous Doppler, lower extremities: Impression: No evidence of deep vein thrombosis. 3. Chest x-ray: Impression: Chronic right middle lobe atelectasis or scarring. Findings suggestive of COPD. DISCHARGE MEDICATIONS: New home medications: 1. Levaquin 500 mg p.o. q.24 hours for a total of 5 days. Today is day 2. He will receive his dose today before discharge. 2. Tylenol 650 mg p.o. q.6 hours prn pain or fever. 3. Prednisone 40 mg p.o. daily for a total of 5 days. Today is day 2. He received his dose today. Continued home medications: 1. Procardia XL 30 mg p.o. daily. 2. Metformin 1,000 mg p.o. b.i.d. 3. Lisinopril/Hydrochlorothiazide one tab p.o. daily, dose 20/12.5. 4. Synthroid 25 mcg daily. 5. Gabapentin 100 mg p.o. t.i.d. 6. Atorvastatin 20 mg p.o. daily. 7. Albuterol inhaler two puffs inhalation q.4 hours prn wheezing, shortness of breath. Discontinued home medications: 1. Bactroban ointment. 2. Doxycycline 100 mg p.o. b.i.d. HISTORY OF PRESENT ILLNESS/HOSPITAL COURSE: Mr. Pastor is an 83-year-old male with a past medical history of hypertension, diabetes, BPH, TIA, and PVD who presented to the ED on 08/28/2018 with a complaint of cellulitis for approximately three weeks. It had been treated by [facility] and the [facility] twice with three different antibiotics. It did not seem to be improving ; therefore, he came in for evaluation. During his emergency room stay, he was found to have a temp of 100.6. He did not meet SIRS criteria as he only had a temp and no other qualifying factors. Initial WBC and lactate were within normal limits. In the ED, the patient was given Vancomycin and Zosyn. We were consulted for admission to the hospital. During the patient's hospital stay, he remained afebrile. Antibiotics were changed to include Cefazolin and Levaquin IV. Wound care was consulted who recommended cleaning with soap and water. Infectious Disease was consulted who suggested etiology was partially due to reaction of a topical cream that the patient was applying to legs; therefore, recommended only washing with soap and water, using Vaseline as needed, and light dressing as needed. In addition, Infectious Disease recommended Levaquin only for an additional four to five days ; therefore, the patient was switched to Levaquin p.o. and Cefazolin was discontinued. In addition, during the patient's hospital stay, he was noted to have occasional irregularity in his heart rate. EKG was obtained that revealed occasional PAC's. Electrolytes were evaluated due to occasional PAC's. Magnesium was noted to be low at 1.6. Magnesium was replaced and today is 1.9. In addition, potassium was slightly low. The patient received p.o. potassium and potassium is now 4. In addition, there was minimal ST depression in V3 and V4 on a repeat EKG, this was reviewed with Dr. Martinez, and compared to previous EKG's, the patient was asymptomatic, denying chest pain, palpitations, shortness of breath, or any other associated symptoms. The patient should follow-up with his primary care for further evaluation. The patient also has COPD. He has a history of 40 years smoking, approximately one pack per day, some days more. He quit in early . During his hospital stay, he was noted to have a decrease in aeration with occasional wheezing. Nebulizers were ordered in addition to the patient's regular scheduled inhalers. The patient was also placed on Prednisone p.o. 40 mg p.o. daily for a total of five days. Mr. Pastor is stable for discharge to [facility] today. Vital Signs: Temperature 97.6, heart rate 93, respirations 18, oxygen 96 percent on room air , blood pressure 144/82. REVIEW OF SYSTEMS: The patient reports pain in bilateral legs on anterior shins. He rates the pain 3/10. Twelve point review of systems was completed, all others negative except the aforementioned. PHYSICAL EXAMINATION: General: Mr. Pastor is sitting in a wheelchair in no acute distress. He appears his stated age. He states he feels ready for discharge. HEENT: Sclerae within normal limits. EOM's intact. Oropharynx: Moist without lesions, exudate, erythema. Pharynx clear. Neck: Full ROM. No lymphadenopathy. Respiratory: No accessory muscle use. Breathing with ease. Sporadic wheezes heard. No rhonchi or rubs. Improved aeration from previous assessment. CV: Regular rate and rhythm. S1, S2 present. No murmurs, rubs, or gallops. No JVD. Extremities: The patient has bilateral redness, scaling, crusting to bilateral lower extremities. Scant weeping noted right lower extremity. The patient has +1 edema in left; +2 in right. Legs have improved since admission. Pedal pulses positive bilaterally. Musculoskeletal: No pain or deformities. Abdomen: Soft, nontender to palpitations. Bowel sounds are normoactive throughout. Neuro: Awake, alert, and oriented x 3. LABORATORY DATA: WBC 8.1, hemoglobin 9.7, hematocrit 29, platelet 282; sodium 140, potassium 4.0, chloride 103, carbon dioxide 29, creatinine 1.33. ASSESSMENT AND PLAN: Mr. Pastor is an 83-year-old male who is stable for discharge. He will be discharged to [facility] for subacute rehab. FOLLOW-UP: 1. Cellulitis of the lower extremities: Please complete the remaining doses of Levaquin. Please follow instructions for skin care. Please monitor for any new or worsening symptoms. 2. Irregular heartbeat: Patient has occasional PAC's. Please follow-up with your primary care at discharge. Please monitor for symptoms of worsening condition. Return to emergency room if needed. 3. COPD: Please use inhalers as ordered. Please complete course of Prednisone. Follow-up with primary care for further management of COPD. 4. Diabetes: Continue Metformin as previously ordered. Follow-up with primary care for further management. 5. Hypertension: Continue home meds the same. Follow-up with primary care for further evaluation. 6. Creatinine 1.33. This is near the patient's baseline. We discussed increasing p.o. fluids. Please repeat BMP for reassessment. 7. Please have provider reassess patient's abilities to drive before discharging from [facility] This is a summarized report of a complex medical history and hospital stay. For further details, please see the entire medical record. TIME SPENT: Approximately 45 minutes were spent on this discharge, greater than half that time was spent [id number] with the patient discussing discharge plans and instructions. YESSENIA MALDONADO, NINO [id number]/[facility] #: [id number] ORIANA
== END 2018-09-03 13:15 | DRG 603 ==
LOC: ED 16:19 → SSU 20:10 → OBSVTOIN 08-29 11:17 → MED 09-01 17:01
PROVIDERS: ADMIT Internal Medicine; ATTEND Internal Medicine
DX: L03.116 Cellulitis of left lower limb (principal); L03.115 Cellulitis of right lower limb; M54.30 Sciatica, unspecified side; R40.2362 Coma scale, best motor response, obeys commands, at arrival to emergency department; R40.2142 Coma scale, eyes open, spontaneous, at arrival to emergency department; R40.2252 Coma scale, best verbal response, oriented, at arrival to emergency department; M54.5 Low back pain; N40.0 Benign prostatic hyperplasia without lower urinary tract symptoms; E11.51 Type 2 diabetes mellitus with diabetic peripheral angiopathy without gangrene; E86.0 Dehydration; D64.9 Anemia, unspecified; G89.29 Other chronic pain; I87.2 Venous insufficiency (chronic) (peripheral); J44.9 Chronic obstructive pulmonary disease, unspecified; E78.5 Hyperlipidemia, unspecified; E03.9 Hypothyroidism, unspecified; R26.9 Unspecified abnormalities of gait and mobility; R07.9 Chest pain, unspecified; I49.9 Cardiac arrhythmia, unspecified; I49.1 Atrial premature depolarization; E66.9 Obesity, unspecified; E11.22 Type 2 diabetes mellitus with diabetic chronic kidney disease; I12.9 Hypertensive chronic kidney disease with stage 1 through stage 4 chronic kidney disease, or unspecified chronic kidney disease; N18.9 Chronic kidney disease, unspecified; I87.8 Other specified disorders of veins; Z87.891 Personal history of nicotine dependence; Z82.49 Family history of ischemic heart disease and other diseases of the circulatory system; Z86.73 Personal history of transient ischemic attack (TIA), and cerebral infarction without residual deficits; Z23 Encounter for immunization; Z68.30 Body mass index [BMI] 30.0-30.9, adult; Z79.84 Long term (current) use of oral hypoglycemic drugs
CPT/HCPCS: 36415; 71046; 80048; 80053; 80061; 80202; 81003; 83036; 83540; 83550; 83605; 83735; 84100; 84153; 84154; 84439; 84443; 85025; 86140; 87040; 87070; 87077; 87186; 87205; 87640; 87641; 90715; 90732; 93005; 93970; 94640; 99284; 99406; A9270-GY; G8978-GP-CL; G8979-GP-CI; G8979-GP-CJ; G8987-GO-CM; G8988-GO-CJ; J0360; J0690; J1650; J1956; J2543; J3370; J3475; J7512

== ENCOUNTER 2018-10-23 17:54 | Emergency (ER) | payer MEDICARE, OTHER ==
[2018-10-23 19:09] LABS: ABS Basophils 0.1 10^3/ul (0-0.2); ABS Eosinophils 0.6 10^3/ul (0-0.6); ABS Lymphocytes 1.4 10^3/ul (1.0-4.8); ABS Monocytes 0.5 10^3/ul (0-0.8); ABS Neutrophils 5.6 10^3/ul (1.5-7.7); ABS Nucleated RBC 0 10^3/ul; Eosinophil % 7.8 %; Hematocrit 35 % (42-52); Hemoglobin 11.5 g/dl (14.0-18.0); Lymphocyte % 17.5 %; Mean Corpuscular HGB Conc 33 g/dl (31-36); Mean Corpuscular Hemoglobin 29 pg (27-31); Mean Corpuscular Volume 88 fL (80-94); Nucleated Red Blood Cells % 0; Platelet Count 232 10^3/ul (150-450); Red Blood Count 3.95 10^6/ul (4.00-5.40); Red Cell Distribution Width 14 % (10.5-15); White Blood Count 8.2 10^3/ul (3.5-10.8)
[2018-10-23 19:16] LABS: INR 0.92 (0.77-1.02)
[2018-10-23 19:17] LABS: Activated Partial Thrombo Time 30.8 seconds (26.0-36.3)
[2018-10-23 19:24] LABS: Albumin 4.1 g/dL (3.2-5.2); Albumin/Globulin Ratio 1.6 (1-3); BUN/Creatinine Ratio 22.7 (8-20); C Reactive Protein 4.12 mg/L (<8.01); Calcium 9.7 mg/dL (8.6-10.3); EGFR Non-African American 58.7 (>60); Globulin 2.6 g/dL (2-4); Potassium 4.8 mmol/L (3.5-5.0); Total Bilirubin 0.5 mg/dL (0.2-1.0); Total Protein 6.7 g/dL (6.4-8.9)
--- NOTE | 2018-10-23 20:44 | ED ---
Lower Extremity - HPI Summary HPI Summary: An 83 y/o male presents to [facility] with a chief complaint of bilateral swelling in his legs on 10/23/18. He has leg pain which he rates as 4/10. 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 The visiting nurse referred the patient to the ED. He also has some redness near his legs. The patient denies fever, CP, SOB. The patient takes HCTZ. The patient lives alone and has difficulty standing, but per son, the patient is safe at home. 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 Negative: Fever Aggravating Factor(s): Standing Alleviating Factor(s): Rest Able to Bear Weight: Yes - with difficulty - Allergies/Home Medications Allergies/Adverse Reactions: Allergies Allergy/AdvReac Type Severity Reaction Status Date / Time No Known Allergies Allergy Verified 08/28/18 16:27 Home Medications: Home Medications Ferrous Gluconate TAB* [Fergon TAB*] 325 mg PO DAILY 10/23/18 [History Confirmed 10/23/18] Sennosides/Docusate Sodium [Senna-Docusate Sodium Tablet] 1 each PO DAILY [History Confirmed 10/23/18] PMH/Surg Hx/FS Hx/Imm Hx Endocrine/Hematology History: Reports: Hx Diabetes, Hx Thyroid Disease, Hx Anemia Denies: Hx Anticoagulant Therapy Cardiovascular History: Reports: Hx Hypercholesterolemia, Hx Hypertension Respiratory History: Reports: 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 Denies: Hx Asthma GI History: Denies: Hx Ulcer History: Reports: Hx Benign Prostatic Hyperplasia, Other Problems/ Disorders - incontinence Musculoskeletal History: Reports: Hx Back Problems, Other Musculoskeletal History - weakness RLE, decreased muscle control Sensory History: Reports: Hx Contacts or Glasses Denies: Hx Hearing Aid Opthamlomology History: Reports: Hx Contacts or Glasses Neurological History: Reports: Other Neuro Impairments/Disorders - decreased strength/movement RLE Infectious Disease History: No Infectious Disease History: Denies: Hx Hepatitis, Hx Human Immunodeficiency Virus (HIV), Traveled Outside the [place] in Last 30 Days - Family History Known Family History: Positive: Other - pt denies any relevant family history. Negative: Cardiac Disease, Hypertension, Diabetes - Social History Alcohol Use: None Substance Use Type: Reports: None Smoking Status (MU): Former Smoker Review of Systems Negative: Fever Negative: Chest Pain Negative: Shortness Of Breath Positive: Myalgia - bilateral leg pain, Edema - bilateral lower extremities Positive: Other - Positive: redness bilateral lower extremities All Other Systems Reviewed And Are Negative: Yes Physical Exam - Summary Physical Exam Summary: Appearance: Well appearing, no pain distress Skin: warm, dry, reflects adequate perfusion Head/face: normal Eyes: EOMI, HALEY ENT: normal Neck: supple, non-tender Respiratory: CTA, breath sounds present Cardiovascular: RRR, pulses symmetrical Abdomen: non-tender, soft Musculoskeletal: Redness, swelling bilaterally in legs, strength/ROM intact Neuro: normal, sensory motor intact, A&Ox3 Triage Information Reviewed: Yes Vital Signs On Initial Exam: Initial Vitals Temp Pulse Resp BP Pulse Ox 97.9 F 87 20 136/60 99 10/23/18 17:58 10/23/18 17:58 10/23/18 17:58 10/23/18 17:58 10/23/18 17:58 Vital Signs Reviewed: Yes Diagnostics - Vital Signs Vital Signs Temp Pulse Resp BP Pulse Ox 10/23/18 17:58 97.9 F 87 20 136/60 99 - Laboratory Lab Results: Lab Results 10/23/18 10/23/18 10/23/18 Range/Units 18:44 18:44 18:44 WBC 8.2 (3.5-10.8) 10^3/ul RBC 3.95 L (4.00-5.40) 10^6/ul Hgb 11.5 L (14.0-18.0) g/dl Hct 35 L (42-52) % MCV 88 (80-94) fL MCH 29 (27-31) pg MCHC 33 (31-36) g/dl RDW 14 (10.5-15) % Plt Count 232 (150-450) 10^3/ul MPV 8.0 (7.4-10.4) fL Neut % (Auto) 68.2 % Lymph % (Auto) 17.5 % Cannon % (Auto) 5.7 % Eos % (Auto) 7.8 % Baso % (Auto) 0.8 % Absolute Neuts (auto) 5.6 (1.5-7.7) 10^3/ul Absolute Lymphs (auto) 1.4 (1.0-4.8) 10^3/ul Absolute Monos (auto) 0.5 (0-0.8) 10^3/ul Absolute Eos (auto) 0.6 (0-0.6) 10^3/ul Absolute Basos (auto) 0.1 (0-0.2) 10^3/ul Absolute Nucleated RBC 0 10^3/ul Nucleated RBC % 0 INR (Anticoag Therapy) (0.77-1.02) APTT (26.0-36.3) seconds Sodium 136 (135-145) mmol/L Potassium 4.8 (3.5-5.0) mmol/L Chloride 102 (101-111) mmol/L Carbon Dioxide 27 (22-32) mmol/L Anion Gap 7 (2-11) mmol/L BUN 27 H (6-24) mg/dL Creatinine 1.19 H (0.67-1.17) mg/dL Est GFR ( Amer) 71.0 (>60) Est GFR (Non-Af Amer) 58.7 (>60) BUN/Creatinine Ratio 22.7 H (8-20) Glucose 143 H (70-100) mg/dL Lactic Acid 2.2 H* (0.5-2.0) mmol/L Calcium 9.7 (8.6-10.3) mg/dL Total Bilirubin 0.50 (0.2-1.0) mg/dL AST 15 (13-39) U/L ALT 14 (7-52) U/L Alkaline Phosphatase 63 (34-104) U/L C-Reactive Protein 4.12 (<8.01) mg/L B-Natriuretic Peptide (<=100) pg/mL Total Protein 6.7 (6.4-8.9) g/dL Albumin 4.1 (3.2-5.2) g/dL Globulin 2.6 (2-4) g/dL Albumin/Globulin Ratio 1.6 (1-3) 10/23/18 10/23/18 Range/Units 18:44 18:44 WBC (3.5-10.8) 10^3/ul RBC (4.00-5.40) 10^6/ul Hgb (14.0-18.0) g/dl Hct (42-52) % MCV (80-94) fL MCH (27-31) pg MCHC (31-36) g/dl RDW (10.5-15) % Plt Count (150-450) 10^3/ul MPV (7.4-10.4) fL Neut % (Auto) % Lymph % (Auto) % Cannon % (Auto) % Eos % (Auto) % Baso % (Auto) % Absolute Neuts (auto) (1.5-7.7) 10^3/ul Absolute Lymphs (auto) (1.0-4.8) 10^3/ul Absolute Monos (auto) (0-0.8) 10^3/ul Absolute Eos (auto) (0-0.6) 10^3/ul Absolute Basos (auto) (0-0.2) 10^3/ul Absolute Nucleated RBC 10^3/ul Nucleated RBC % INR (Anticoag Therapy) 0.92 (0.77-1.02) APTT 30.8 (26.0-36.3) seconds Sodium (135-145) mmol/L Potassium (3.5-5.0) mmol/L Chloride (101-111) mmol/L Carbon Dioxide (22-32) mmol/L Anion Gap (2-11) mmol/L BUN (6-24) mg/dL Creatinine (0.67-1.17) mg/dL Est GFR ( Amer) (>60) Est GFR (Non-Af Amer) (>60) BUN/Creatinine Ratio (8-20) Glucose (70-100) mg/dL Lactic Acid (0.5-2.0) mmol/L Calcium (8.6-10.3) mg/dL Total Bilirubin (0.2-1.0) mg/dL AST (13-39) U/L ALT (7-52) U/L Alkaline Phosphatase (34-104) U/L C-Reactive Protein (<8.01) mg/L B-Natriuretic Peptide 75 (<=100) pg/mL Total Protein (6.4-8.9) g/dL Albumin (3.2-5.2) g/dL Globulin (2-4) g/dL Albumin/Globulin Ratio (1-3) Result Diagrams: 10/23/18 18:44 10/23/18 18:44 Lab Statement: Any lab studies that have been ordered have been reviewed, and results considered in the medical decision making process. Lower Extremity Course/Dx - Course Course Of Treatment: An 83 y/o male presents to [facility] with a chief complaint of bilateral swelling in his legs on 10/23/18. He has leg pain which he rates as 4/ 10. 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 The physical ecam revealed redness and swelling bilaterally in his legs. Lab results were obtained. The patient was instructed to follow up with his PCP in 3 days and is agreeable with this plan. The patient was discharged with a prescription for bactrim. Dx: cellulitis of legs. - Diagnoses Differential Diagnosis/HQI/PQRI: Positive: Cellulitis Provider Diagnoses: Cellulitis of right leg, Cellulitis of left leg Discharge - Sign-Out/Discharge Documenting (check all that apply): Patient Departure - DC - Discharge Plan Condition: Stable Disposition: HOME Prescriptions: Sulfamethox/Trimethoprim DS* [Bactrim DS 800/160 TAB*] 1 tab PO BID #20 tab Referrals: Angela Zapata [Primary Care Provider] - 3 Days () Additional Instructions: Follow up with your PCP in 3 days. Return to the ED if you experience any new or worsening symptoms. - Billing Disposition and Condition Condition: STABLE Disposition: Home - Attestation Statements Document Initiated by Angelibmaylin: Yes Documenting Scribe: Abilio Coello Provider For Whom Lolly is Documenting (Include Credential): Baljit Arteaga MD Scribe Attestation: Abilio Porter scribed for Baljit Arteaga MD on 10/23/18 at 2103. Scribe Documentation Reviewed: Yes Provider Attestation: The documentation as recorded by the Abilio ruano accurately reflects the service I personally performed and the decisions made by Baljit mason MD Status of Scribe Document: Viewed
[2018-10-23] MEDS: Sulfamethox/Trimethoprim DS 800/160* TAB PO ONE (21:05)
[2018-10-23 21:13] VITALS: BP 173/90
== END 2018-10-23 21:12 | disposition home or self-care (01) ==
LOC: ED 17:54
DX: L03.116 Cellulitis of left lower limb (principal); L03.115 Cellulitis of right lower limb; E11.9 Type 2 diabetes mellitus without complications; E78.00 Pure hypercholesterolemia, unspecified; I10 Essential (primary) hypertension; J43.9 Emphysema, unspecified; N40.0 Benign prostatic hyperplasia without lower urinary tract symptoms; Z87.891 Personal history of nicotine dependence
CPT/HCPCS: 36415; 80053; 83605; 83880; 85025; 85610; 85730; 86140; 99282; A9270-GY

== ENCOUNTER 2019-01-06 07:34 | Day surgery (SDC) | payer OTHER ==
[~2019-01-06 07:34] MED LIST: Buffered Lidocaine 1% SYRIN* 1 ML/SYRINGE INTRADERM ONE
[2019-01-06] MEDS ORDERED: Propofol* 10 MG/ML 20 ML BTL ONE (09:19)
[2019-01-06] MEDS ORDERED: Lidocaine 2% PF * 5 ML VIAL ONE (09:19)
[2019-01-06 10:02] VITALS: BP 152/54
[2019-01-06] MEDS ORDERED: Lidocaine 1%* 5 ML VIAL ONE (10:19)
[2019-01-06] MEDS ORDERED: Neomycin/Polymy/Dex OPTH.SUSP* MAXITROL 0.1% 5 ML ONE (10:19)
[2019-01-06] MEDS ORDERED: Lidocaine 2% EPI 1:200000 MPF*10-20 ML VIAL ONE (10:19)
[2019-01-06] MEDS ORDERED: Proparacaine 0.5% OPHTH.SOL* 15 ML BTL ONE (10:19)
[2019-01-06] MEDS ORDERED: Cyclopentolate 1% OPTH.SOL* 2 ML BTL ONE (10:19)
[2019-01-06] MEDS ORDERED: Povidone Iodine 5% OPTH* 30 ML BTL ONE (10:19)
[2019-01-06] MEDS ORDERED: Ketorolac 0.5% OPHTH (NF) 0.5 % 5 ML BTL ONE (10:19)
[2019-01-06] MEDS ORDERED: acetaZOLAMIDE TAB* 250 MG ONE (10:19)
--- NOTE | 2019-01-06 10:24 | OP ---
OPERATIVE NOTE: DATE OF OPERATION: 01/06/19 DATE OF : 39 SURGEON: Jose Alejandro Yates MD PREOPERATIVE DIAGNOSIS: Cataract, left eye. POSTOPERATIVE DIAGNOSIS: Cataract, left eye. OPERATIVE PROCEDURE: Extracapsular cataract extraction with intraocular lens implant, left eye. PROCEDURE: The patient was brought to the operating room after being given 1/2% Alcaine with epineph rine drops in the preoperative area. The eye was prepped and draped in the usual sterile fashion. S terile drape and eyelid speculum were placed. Again, topical 1/2% Alcaine with epinephrine was given . A paracentesis incision was made at the 3 o'clock position with the No.75 blade. Clear cornea inc ision 2.2 x 2.2-mm was created at the 6 o'clock position starting at the anterior limbus using the 2. 2-mm keratome. The anterior chamber was irrigated with 0.4 mL of 1% non-preservative intracameral li docaine and filled with DisCoVisc. A capsulorrhexis was completed using the cystotome and the Utrata forceps. Hydrodissection was performed with balanced salt solution. The lens nucleus was removed wi th the Phacoemulsification handpiece without incident. Cortex was removed with the irrigation-aspira tion handpiece. The capsular bag was re-inflated using DisCoVisc and an SN60WF 21.5 implant was inse rted with the shooter. The irrigation-aspiration handpiece was used to remove all residual DisCoVisc . The eye was refilled with balanced salt solution and the wound checked and found to be watertight. Topical Maxitrol drops were given. [id number]/[facility] #: [id number]
== END 2019-01-06 10:10 | disposition home or self-care (01) ==
LOC: OREAST 07:34
PROVIDERS: ATTEND Specialist
DX: H25.12 Age-related nuclear cataract, left eye (principal); H35.372 Puckering of macula, left eye; H52.202 Unspecified astigmatism, left eye; E11.9 Type 2 diabetes mellitus without complications; Z79.84 Long term (current) use of oral hypoglycemic drugs; I10 Essential (primary) hypertension; E78.00 Pure hypercholesterolemia, unspecified
CPT/HCPCS: A9270-GY; J2704; V2632

== ENCOUNTER 2019-08-28 11:41 | Inpatient (IN) | payer OTHER, MEDICARE ==
--- NOTE | 2019-08-28 13:01 | ED ---
Skin Complaint - HPI Summary HPI Summary: The patient is an 84 y/o M w hx DM, CVA, bed bound, presenting to [facility] accompanied by son with a chief complaint of increasing pain and drainage from an ulceration on the right hip initially onset a year ago with worsening over the last few days. He reports that he sleeps on a hospital bed at home because he is clinically bed bound, and he woke up with a bed sore about a year ago. He has been seeking treatment at the [facility], where he was told there is an infection. He is expected to go under surgery for debridement, but he was advised by his home health nurse to come to the ED yesterday for current treatment. The pain is now rated 6/10 in severity and is aggravated by touch. He denies any fevers. He states he had been on antibiotics but is unsure of the name. PMHx: DM, thyroid disease, anemia, HLD, HTN, PAD, COPD, BPH, strokes, chronically bed bound. Former smoker, no EtOH, no substance use. Medications reviewed. Allergies noted. - History of Current Complaint Chief Complaint: EDRashSkinAbscess Stated Complaint: RT HIP SORE PER PT Hx Obtained From: Patient, Family/Roll Examiner - son Onset/Duration: Started Weeks Ago - initially about a year ago, Still Present, Worse Since - last few days Skin Exposure Onset/Duration: Weeks Ago Timing: Lasting Weeks Onset Severity: Mild Current Severity: Moderate Pain Intensity: 6 Pain Scale Used: 0-10 Numeric Skin Location: Other: - right hip Character: Pain Aggravating Symptom(s): Touch Alleviating Symptom(s): Nothing Associated Signs & Symptoms: Drainage - at site of ulcer - Additional Pertinent History Primary Care Physician: CINDY - Allergy/Home Medications Allergies/Adverse Reactions: Allergies Allergy/AdvReac Type Severity Reaction Status Date / Time cephalexin [From Keflex] Allergy Rash Verified 08/28/19 13:01 PMH/Surg Hx/FS Hx/Imm Hx Endocrine/Hematology History: Reports: Hx Diabetes - type 2, does FS qam, Hx Thyroid Disease, Hx Anemia - iron defiency Denies: Hx Anticoagulant Therapy Cardiovascular History: Reports: Hx Hypercholesterolemia, Hx Hypertension, Hx Peripheral Vascular Disease, Other Cardiovascular Problems/Disorders - HYPERLIPIDEMIA Respiratory History: Reports: 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 Denies: Hx Asthma GI History: Denies: Hx Ulcer History: Reports: Hx Benign Prostatic Hyperplasia, Other Problems/ Disorders - incontinence, BPH Musculoskeletal History: Reports: Hx Arthritis, Hx Back Problems, Other Musculoskeletal History - weakness RLE, decreased muscle control Sensory History: Reports: Hx Cataracts - both eyes, Hx Contacts or Glasses - glasses not with him Denies: Hx Hearing Aid Opthamlomology History: Reports: Hx Cataracts - both eyes, Hx Contacts or Glasses - glasses not with him Neurological History: Reports: Hx Transient Ischemic Attacks (TIA), Other Neuro Impairments/Disorders - decreased strength/movement RLE - Cancer History Hx Chemotherapy: No - Surgical History Surgical History: Yes Surgery Procedure, Year, and Place: tonsillectomy as a child Hx Anesthesia Reactions: No Infectious Disease History: No Infectious Disease History: Denies: Hx Hepatitis, Hx Human Immunodeficiency Virus (HIV), Traveled Outside the [place] in Last 30 Days - Family History Known Family History: Negative: Cardiac Disease, Hypertension, Diabetes - Social History Alcohol Use: None Hx Substance Use: No Substance Use Type: Reports: None Hx Tobacco Use: Yes Smoking Status (MU): Former Smoker Review of Systems Negative: Fever Positive: Other - ulceration on the right hip, painful with drainage All Other Systems Reviewed And Are Negative: Yes Physical Exam - Summary Physical Exam Summary: Constitutional: Well-developed, Elderly Alert. (-) Distressed Skin: Warm, Dry, 8cm x 8cm pressure ulcer of the right posterior hip/buttock with drainage and foul odor HENT: Normocephalic; Atraumatic Eyes: Conjunctiva normal Neck: Musculoskeletal ROM normal neck. (-) JVD, (-) Stridor, (-) Nuchal rigidity Cardio: Rhythm regular, rate normal, Heart sounds normal; Intact distal pulses; Radial pulses are 2+ and symmetric. (-) Murmur Pulmonary/Chest wall: Effort normal. (-) Respiratory distress, (-) Wheezes, (-) Rales Abd: Soft, (-) tenderness, (-) Distension, (-) Guarding, (-) Rebound Musculoskeletal: Right lower extremity weakness, (-) Edema Lymph: (-) Cervical adenopathy Neuro: Alert, Oriented x3 Psych: Mood and affect Normal Triage Information Reviewed: Yes Vital Signs On Initial Exam: Initial Vitals Temp Pulse Resp BP Pulse Ox 99.5 F 95 16 155/89 93 08/28/19 11:43 08/28/19 11:43 08/28/19 11:43 08/28/19 11:43 08/28/19 11:43 Vital Signs Reviewed: Yes Procedures - Sedation Patient Received Moderate/Deep Sedation with Procedure: No Diagnostics - Vital Signs Vital Signs Temp Pulse Resp BP Pulse Ox 08/28/19 11:43 99.5 F 95 16 155/89 93 - Laboratory Result Diagrams: 08/28/19 13:03 08/28/19 13:03 Lab Statement: Any lab studies that have been ordered have been reviewed, and results considered in the medical decision making process. - Radiology Right Hip XR Radiology Interpretation Completed By: Radiologist Summary of Radiographic Findings: Impression: Soft tissue swelling and defect, no specific evidence for osteomyelitis. If there is a high clinical index of suspicion for osteomyelitis consider an MRI study without contrast or a three- phase bone scan. ED physician has reviewed this report. Re-Evaluation - Re-Evaluation First Eval Re-Evaluation Time: 14:20 Change: Unchanged Comment: We discussed all findings and plan for admission. wound culture ordered Course/Dx - Course Course Of Treatment: 84 y/o male w hx DM, bedbound from CVA, recurrently R hip ulcer p/w worsening drainage from hip. - physical exam with the draining & foul -smelling wound of the right hip, concern for osteomyelitis. Will check labs, plain film and admit to medicine for further workup - Diagnoses Provider Diagnoses: Open wound of right hip - Physician Notifications Discussed Care Of Patient With: Arturo Harris - hospitalist Time Discussed With Above Provider: 14:10 Instructed by Provider To: Other - I discussed the patient's case with Dr. Harris who accepts the patient for admission. Discharge ED - Sign-Out/Discharge Documenting (check all that apply): Patient Departure - Patient accepted for admission by Dr. Harris. - Discharge Plan Condition: Stable Disposition: ADMITTED TO [facility] Referrals: Angela Zapata [Primary Care Provider] - - Billing Disposition and Condition Condition: STABLE Disposition: Admitted to [facility] - Attestation Statements Document Initiated by Scribe: Yes Documenting Scribe: Mayela Morocho Provider For Whom Scribe is Documenting (Include Credential): MD Angel Gamezibe Attestation: I, Mayela Morocho, scribed for Dr. Brandt Angel MD on 08/28/19 at 1449. Scribe Documentation Reviewed: Yes Provider Attestation: The documentation as recorded by the scribe, Mayela Morocho accurately reflects the service I personally performed and the decisions made by me, Dr. Brandt Angel MD Status of Scribe Document: Viewed
[2019-08-28 13:30] LABS: ABS Basophils 0.1 10^3/ul (0-0.2); ABS Eosinophils 0.2 10^3/ul (0-0.6); ABS Lymphocytes 1.5 10^3/ul (1.0-4.8); ABS Monocytes 0.8 10^3/ul (0-0.8); ABS Neutrophils 9.9 10^3/ul (1.5-7.7); Eosinophil % 1.3 %; Hematocrit 37 % (42-52); Hemoglobin 12.7 g/dL (14.0-18.0); Lymphocyte % 11.8 %; Mean Corpuscular HGB Conc 34 g/dL (31-36); Mean Corpuscular Hemoglobin 29 pg (27-31); Mean Corpuscular Volume 86 fL (80-94); Mean Platelet Volume 8.5 fL (7.4-10.4); Platelet Count 255 10^3/uL (150-450); Red Blood Count 4.34 10^6 /uL (4.18-5.48); Red Cell Distribution Width 14 % (10-15); White Blood Count 12.5 10^3/uL (3.5-10.8)
[2019-08-28 13:40] LABS: Albumin 3.9 g/dL (3.2-5.2); Albumin/Globulin Ratio 1.2 (1-3); BUN/Creatinine Ratio 25.9 (8-20); Calcium 9.7 mg/dL (8.6-10.3); EGFR African American 49.6 (>60); Globulin 3.2 g/dL (2-4); Potassium 3.6 mmol/L (3.5-5.0); Total Bilirubin 0.7 mg/dL (0.2-1.0); Total Protein 7.1 g/dL (6.4-8.9)
[2019-08-28 14:54] LABS: Erythrocyte Sed Rate 90 mm/Hr (0-19)
[2019-08-28] MEDS ORDERED: Albuterol 2.5 MG/3 ML NEB.SOL* (0.083%) INH PRN (15:24)
[2019-08-28] MEDS ORDERED: Ondansetron INJ* 2 MG/ML VIAL IV PRN (15:24)
[2019-08-28] MEDS ORDERED: Piperacillin/Tazobac ADVAN(*) 3.375 GM in NS 0.9% 100 ML* 100 ML IVPB ONE (15:48)
[2019-08-28] MEDS ORDERED: Vancomycin per Pharmacy* NOTE FOLLOW UP SCH (16:00)
[2019-08-28] MEDS ORDERED: Dextrose 50% VIAL 50 ml IV PUSH PRN (16:00)
[2019-08-28 16:53] LABS: C Reactive Protein 58.11 mg/L (<8.01)
[2019-08-28] MEDS: Insulin LISPRO* 1 UNITS UNIT SUBCUT SCH (17:53)
[2019-08-28] MEDS: Gabapentin CAP(*) 100 MG PO SCH (17:53)
[2019-08-28] MEDS ORDERED: Vancomycin(*) 1,500 MG in NS 0.9% 250 ML* 250 ML IVPB ONE (18:00)
[2019-08-28 18:16] LABS: TSH (Thyroid Stimulating Horm) 4.71 mcIU/mL (0.34-5.60)
--- NOTE | 2019-08-28 19:11 | HP ---
CC: Angela Zapata NP * MEDICINE HISTORY AND PHYSICAL: DATE OF ADMISSION: 08/28/19 PROVIDER: Aline Lock NP ATTENDING PHYSICIAN: Dr. Arturo Harris * (dictated by Aline Lock NP) . PRIMARY CARE PROVIDER: Angela Zapata NP, from the OR. CONSULTING PHYSICIANS: Dr. Angeli Luis, Orthopedic Surgery; Dr. Amrit Serrato, Infectious Disease. CHIEF COMPLAINT: Right hip pain and chronic pressure ulcer. HISTORY OF PRESENT ILLNESS: Mr. Pastor is an 84-year-old male with a past medical history significant for insulin-dependent diabetes mellitus, hypertension, hyperlipidemia, peripheral vascular disease and previous CVA with residual weakness, also bedbound, who presents to the ER today with concern for worsening right hip pain and increased drainage from his right hip pressure ulcer. Mr. Pastor has been under the care of the [facility]. He reports the ulcer started almost 1 year ago. He has been receiving care with wound packing and most recently with what his son refers to as "the SNAP system" which sounds like a wound VAC that was utilized to help with drainage and bringing the wound to better closure. Of note, both Mr. Pastor and his son, Danny Damon, helped to provide the history together. Apparently, the treatment with the system was discontinued due to a significant amount of tissue seen within the wound. Mr. Pastor was due to see a surgeon on Friday to discuss further debridement. The wound has been having increased drainage with foul odor. He was seen by his nurse who usually comes on Fridays, who recommended that he come to the ER for further evaluation. He did not come yesterday but did agree to come today. Mr. Pastor is a fair to poor historian. He states that he was working but has been unable to walk for quite some time. He is unable to recall why, although I do note that he does have a history of CVA with left-sided involvement. He does state that he favors his right side when he is sleeping and tries to stay off of that side, but often finds that he is lying on the right side while in bed. The OR had given him an air mattress to help with offloading. He denies having any fever or chills. He states that he has been relatively well otherwise, denying any recent cold or flu symptoms. He denies any history of chest pain, palpitations, shortness of breath, or cough. He does report intermittent chest tightness, although denies this currently and reports a cough where he occasionally brings up phlegm. He can lay flat, but prefers to lay slightly elevated in his hospital bed as it is more comfortable. He denies abdominal pain, nausea, vomiting, diarrhea. He denies any dysuria. He does report history of BPH, but states his medications help to control this. Denies any new sensory loss, although he does endorse neuropathy in the bilateral feet , which appears stable. Denies any changes to his vision, hearing, swallowing concerns, new joint or muscle pains other than the previously aforementioned right hip pain. He reports that he gets recurrent redness in the low abdomen and groin area from his urinal that he uses. In the ER, he was evaluated. His blood work showed concern for leukocytosis with a white blood cell count of 12,500. His ESR is 90. His creatinine is 1.62 , which appears to be slightly increased from previous. His wound does have a definitive foul odor with copious amount of drainage. Given these findings, Hospital Medicine was consulted for admission. PAST MEDICAL HISTORY: In review of his records that we have available, he carries a history of: 1. Type 2 diabetes, insulin dependent. The patient also has associated diabetic neuropathy. 2. Hypertension. 3. Hyperlipidemia. 4. Hypothyroidism. 5. Peripheral vascular disease and peripheral arterial disease. 6. Iron deficiency and multifactorial anemia. 7. COPD. 8. BPH. 9. GERD. 10. Recurrent UTIs. 11. History of right-sided CVA with left sided weakness 12. The patient is primarily bedbound. 13. Chronic kidney disease, stage 2. 14. Chronic low back pain with sciatica. PAST SURGICAL HISTORY: None reported. HOME MEDICATIONS: Medications are tentative at this time as Mr. Pastor was unable to confirm all of his medications from memory. [facility] 1. Tamsulosin 0.4 mg daily. 2. Sucralfate 1 g q.a.m. 3. Sennosides/docusate 1 tab q.a.m. p.r.n. 4. Pantoprazole 20 mg b.i.d. 5. Nifedipine ER 30 mg q.a.m. 6. Multivitamin 1 tab q.a.m. 7. Levothyroxine 50 mcg q.a.m. 8. Hydrochlorothiazide 25 mg daily. 9. Ibuprofen 200 to 400 mg q.6 hours p.r.n. 10. Gabapentin 100 mg q.a.m. and 200 mg q.p.m. 11. Furosemide 40 mg daily as needed. 12. Finasteride 5 mg daily. 13. Ferrous gluconate 325 mg at bedtime. 14. Atorvastatin 20 mg at bedtime. 15. Albuterol inhaler 2 puffs inhaled q.4 hours p.r.n. 16. Acetaminophen 650 mg q.6 hours p.r.n. ALLERGIES: Include KEFLEX, which caused a morbilliform rash. FAMILY HISTORY: Reports a father with heart disease. Unknown family history for mother. SOCIAL HISTORY: He is a former smoker, having quit back in 2000. He carries 30 - pack year history. Reports former alcohol use, but none in many years. Denies any illicit drug use. He lives by himself. He does have a nurse that comes on Tuesdays and Fridays to help with wound care and other nursing needs. His son comes to visit him every day. He states he does have a scooter that he utilizes and can get into in order to get to his kitchen and other parts of his home. His son, Danny Pastor Jr., is his surrogate decision maker and healthcare proxy in the event of emergency. REVIEW OF SYSTEMS: A 12-point review of systems was completed. All pertinent positives and negatives as per HPI. All those not mentioned are negative. PHYSICAL EXAMINATION GENERAL: This is a well-developed, pleasant and conversive older gentleman, lying in bed, in no acute distress. VITAL SIGNS: Temperature 99.6, heart rate 95, respiratory rate 18, blood pressure 155/89, and O2 saturation is 93% on room air. HEENT: Head is atraumatic, normocephalic. Pupils are equal, round, and reactive to light and accommodation. Extraocular movements are intact. Sclerae are anicteric. Oral mucosa is moist. He does have some missing teeth, but no oropharyngeal erythema or exudate noted. NECK: Supple with full range of motion. No JVD noted. No lymphadenopathy appreciated. LUNGS: With good airflow throughout. I do note some expiratory wheezes sporadically more notably in the lower lobes. CARDIAC: Normal S1, S2 heart sounds with regular rate and rhythm. No murmurs appreciated. There is trace to 1+ peripheral edema noted to the lower extremities from the knee down to the foot. ABDOMEN: Soft, mildly distended, but nontender with normoactive bowel sounds. No hepatosplenomegaly. There is no rebound tenderness or guarding. CVA tenderness is negative. MUSCULOSKELETAL: He does move all 4 extremities with full range of motion. No clubbing or cyanosis noted. NEURO: He is alert and oriented. Responds appropriately to commands. Cranial nerves II through XII are grossly intact. Sensation is impaired to the lower extremities with light touch not felt, although he does inconsistently feel sharp sensations. SKIN: There is approximately 12 cm x 12 cm area of erythema in the shape of a square likely secondary to tape or dressing to the right hip that is blanchable. There is an approximately 3 cm x 3 cm x 2 to 3 quarter cm deep wound to the right hip that is draining greenish malodorous drainage. Culture was obtained. Wound may be deeper than measured as I was unable to fully examine the depth of the wound with the swab as this was difficult for him to tolerate. No tunneling was identified at that time. The patient has dry ulcerations and chronic erythema secondary to peripheral vascular disease to bilateral lower extremities. There are no open areas or active areas of drainage. The right foot has evidence of maceration at the toes, but no identified open areas. There is also evidence of erythema with satellite lesions consistent with candidiasis noted to the lower abdominal fold and groin area. DIAGNOSTIC STUDIES/LAB DATA: CBC: WBC 12.5, hemoglobin 12.7, hematocrit 37, platelet count 255, ESR is 90. CMP: Sodium 136, potassium 3.6, chloride 94, carbon dioxide 32, BUN 42, creatinine 1.62, glucose 143, lactic acid 1.5, calcium 9.7. Total bilirubin 0.7, AST 15, ALT 13, alk phos 91. Lactic acid 1.5. Plain films were done, which showed soft tissue swelling and defect. No specific evidence for osteomyelitis on the right hip and pelvic views. Consider MRI study without contrast or a three-phase bone scan. Old medical records were reviewed. ASSESSMENT AND PLAN: This is an 84-year-old male with a past medical history significant for peripheral vascular disease; hypertension; type 2 diabetes, insulin dependent; hyperlipidemia; and hypothyroidism, who is also bedbound, who presents today with concern for right hip chronic pressure ulcer with malodorous drainage and likely osteomyelitis as well as increased pain to the region. He will be admitted as an inpatient. Plan is as follows: 1. 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 This has been present for almost a year per the patient. He has been receiving care of the wound, but appears to have failed treatment for this as an outpatient. He does have a leukocytosis as well as significant drainage from the wound, which I have cultured during the course of the examination and sent down to the lab. We will start him on vancomycin and Zosyn. I do note that he did have a significant reaction to Keflex earlier this year and discussed this with the pharmacist, who cites a 5% to 15% chance of potential cross reaction. This was reviewed with the patient and his son and they are willing to trial the Zosyn, stating that he has had penicillin antibiotics in the past and has done well with them. We will request an orthopedic consult for wound evaluation and potential debridement, as well as an infectious disease consult as soon as possible. We will also order an MRI of the hip for further evaluation of tissue and bone. For now, we will continue to keep the hip clean and dry and continue utilizing pressure offloading measures. 2. Leukocytosis. This is likely secondary to the wound as mentioned per above. He does meet for systemic inflammatory response syndrome criteria with leukocytosis, although his vital signs are currently stable and he has not shown signs fever. He does have associated acute kidney injury on top of his chronic kidney disease, which we will continue to follow. Repeat lactic acid per protocol and continue supportive care measures and antibiotic treatment. 3. Chronic kidney disease. He does again have acute on chronic kidney injury with a slight bump of creatinine from his previous baseline of 1.2 to 1.3. He does take hydrochlorothiazide at home, it appears from his medication records. [facility], but this is tentatively his medication list as noted. We will continue to follow this and adjust medications accordingly. Avoid any nephrotoxic medications. 4. Anemia. This is chronic and is normocytic and he reports having a previous diagnosis of iron-deficiency anemia and he receives iron supplements for this. He denies any darker stools or rectal bleeding recently and we will continue to monitor this. He is hemodynamically stable. 5. Hypertension. Currently mildly hypertensive. Continue home nifedipine and we will confirm any other medications. 6. Insulin-dependent diabetes. He no longer takes metformin due to his kidney function. We will start him on lispro sliding scale insulin. We need to confirm his other insulin doses. Currently, his blood sugar per his labs appears appropriately controlled. 7. Peripheral vascular disease. He has chronic venous stasis bilaterally. It does appear stable. No warmth or drainage to suggest active infection. We will continue to monitor. He has had blood cultures drawn per protocol for the previously aforementioned leukocytosis and wound. He has Tubigrips on, which he can continue to use. Continue home statin. 8. Hyperlipidemia. Again, continue statin. 9. History of chronic obstructive pulmonary disease. Continue inhalers. 10. Hypothyroidism. Add on TSH to ER labs. Continue home levothyroxine at 50 mcg and adjust accordingly. 11. Benign prostatic hypertrophy. Continue tamsulosin and finasteride. 12. FEN: Consistent carbohydrate diet. 13. DVT prophylaxis: Low molecular weight heparin. 14. Code status: He is a full code. 15. Disposition: Admit as an inpatient. Discharge disposition unknown at this time. TIME SPENT: Approximately 65 minutes was spent on this admission with more than half that time was spent [id number] with the patient obtaining history and physical, performing physical examination, and reviewing the plan of care. Plan of care was also reviewed with my attending, Dr. Harris, who is in agreement. ALINE LOCK, NINO [id number]/[facility] #: [id number] [place]
[2019-08-28] MEDS ORDERED: Zosyn per Pharmacy* NOTE FOLLOW UP SCH (20:00)
[2019-08-28] MEDS: Nystatin TOP POWDER* 15 GM BTL TOPICAL SCH (22:23)
[2019-08-28] MEDS: Atorvastatin* 20 MG TAB PO SCH (22:24)
[2019-08-28] MEDS: Heparin VIAL(*) 5000 UNITS/ML VIAL (FIVE THOUSAND) SUBCUT SCH (22:24)
[2019-08-28] MEDS: ZOSYN 3.375 GM Q8H per EXTENDED INFUSION IVPB SCH ×2 (22:24)
[2019-08-28] MEDS: Ferrous Gluconate TAB* 324 MG TAB PO SCH (22:24)
[2019-08-28] MEDS: Pantoprazole TAB * 40 MG TAB PO SCH (22:25)
[2019-08-29] MEDS: ZOSYN 3.375 GM Q8H per EXTENDED INFUSION IVPB SCH ×6 (05:10→21:25)
[2019-08-29 05:14] LABS: ABS Eosinophils 0.3 10^3/ul (0-0.6); ABS Lymphocytes 1.9 10^3/ul (1.0-4.8); ABS Monocytes 0.5 10^3/ul (0-0.8); ABS Neutrophils 5.6 10^3/ul (1.5-7.7); Eosinophil % 3.6 %; Hematocrit 32 % (42-52); Hemoglobin 11.2 g/dL (14.0-18.0); Lymphocyte % 22.2 %; Mean Corpuscular HGB Conc 35 g/dL (31-36); Mean Corpuscular Hemoglobin 30 pg (27-31); Mean Corpuscular Volume 85 fL (80-94); Mean Platelet Volume 8.2 fL (7.4-10.4); Platelet Count 231 10^3/uL (150-450); Red Blood Count 3.79 10^6 /uL (4.18-5.48); Red Cell Distribution Width 14 % (10-15); White Blood Count 8.4 10^3/uL (3.5-10.8)
[2019-08-29 05:36] LABS: BUN/Creatinine Ratio 24.3 (8-20); Calcium 8.9 mg/dL (8.6-10.3); Potassium 3.5 mmol/L (3.5-5.0)
[2019-08-29] MEDS ORDERED: Vancomycin(*) 750 MG in NS 0.9% 250 ML* 250 ML IVPB SCH (06:00)
[2019-08-29] MEDS: Levothyroxine TAB* 50 MCG TAB PO SCH (06:01)
[2019-08-29] MEDS: Heparin VIAL(*) 5000 UNITS/ML VIAL (FIVE THOUSAND) SUBCUT SCH ×3 (06:01→22:38)
[2019-08-29] MEDS: Acetaminophen TAB* 325 MG PO PRN ×2 (08:50→22:38)
[2019-08-29] MEDS: Insulin LISPRO* 1 UNITS UNIT SUBCUT SCH ×3 (08:50→18:06)
[2019-08-29] MEDS: Gabapentin CAP(*) 100 MG PO SCH ×2 (08:50→18:05)
[2019-08-29] MEDS: Finasteride TAB* 5 MG PO SCH (08:51)
[2019-08-29] MEDS: Pantoprazole TAB * 40 MG TAB PO SCH ×2 (08:51→21:21)
[2019-08-29] MEDS: Cyanocobalamin TAB* 500 MCG PO SCH (08:51)
[2019-08-29] MEDS: Sucralfate TAB* 1 GM PO SCH (08:51)
[2019-08-29] MEDS: NIFEdipine ER TAB* 30 MG PO SCH (08:51)
[2019-08-29] MEDS: Tamsulosin CAP* 0.4 MG PO SCH (08:51)
[2019-08-29] MEDS: Vitamin THERAPEUTIC TAB PO SCH (08:52)
[2019-08-29] MEDS: Nystatin TOP POWDER* 15 GM BTL TOPICAL SCH ×3 (08:54→21:26)
--- NOTE | 2019-08-29 12:40 | CONS ---
ORTHOPEDIC CONSULTATION REPORT: DATE OF CONSULT: 08/29/19 ATTENDING SURGEON: Angeli Luis MD Thank you for this orthopedic consultation. CHIEF COMPLAINT: Right hip wound. HISTORY OF PRESENT ILLNESS: Mr. Pastor is an 84-year-old gentleman with multiple medical comorbidities. He has had 1 year of a pressure ulcer with open wound and drainage on the right hip. He has been under the care of the [facility]. He has had wound packing and possibly a wound VAC. The patient reports over the last 2 weeks, he has had increased drainage from the wound with foul odor. He denies fevers or chills. He was seen by a nurse last Friday , who recommended he come to the emergency room. He reports some 4/10 pain along the right hip. His pain is increased with lying on that side. He does have an air mattress at home to help with offloading. PAST MEDICAL HISTORY: 1. Type 2 diabetes, insulin dependent. 2. Diabetic neuropathy. 3. Hypertension. 4. Hyperlipidemia. 5. Hypothyroidism. 6. Peripheral vascular disease. 7. Peripheral arterial disease. 8. Iron-deficiency anemia. 9. COPD. 10. BPH. 11. GERD. 12. Recurrent UTIs. 13. Right-sided CVA with left-sided weakness. 14. Bedbound. 15. Chronic kidney disease stage 2. 16. Chronic low back pain with sciatica. PAST SURGICAL HISTORY: None. HOME MEDICATIONS: 1. Tamsulosin. 2. Sucralfate. 3. Sennoside. 4. Pantoprazole. 5. Nifedipine. 6. Multivitamin. 7. Levothyroxine. 8. Hydrochlorothiazide. 9. Ibuprofen. 10. Gabapentin. 11. Furosemide. 12. Finasteride. 13. Ferrous gluconate. 14. Atorvastatin. 15. Albuterol. 16. Acetaminophen. ALLERGIES: KEFLEX. FAMILY HISTORY: Paternal heart disease. SOCIAL HISTORY: The patient lives alone. He has a nurse that comes on Tuesdays and Fridays to help with wound care and other nursing needs. He has a son, who comes to visit him every other day. He has a scooter that he uses for short-term transportation. Otherwise, he is bedbound. No tobacco, alcohol, or recreational drug use. He does have a history of [id number] history of smoking. REVIEW OF SYSTEMS: Fourteen systems were reviewed with the patient; positive for right hip pain and a draining wound, positive for weakness, positive for decreased sensation in his feet. Negative for fevers, chills, chest pain, shortness of breath. Otherwise, the patient reports review of systems is negative or not relevant. PHYSICAL EXAM: Vitals: Temperature 97.6, pulse is 78, blood pressure 140/69. General: The patient is a well-nourished male, in no apparent distress. Alert and oriented x3. Pleasant mood, appropriate affect. Gait is not assessed. HEENT: Atraumatic, normocephalic. Pupils equal and reactive to light. Chest: Unlabored breathing. Right Lower Extremity: The patient's skin has a 3-cm diameter open wound with erythema and dense hardened tissue around the greater trochanter. There is foul-smelling drainage from this wound. Tenderness to palpation here. He can flex the hip to 90 degrees distally. He has areas of erythema along the distal tibia with some healed scabs. He demonstrates dorsiflexion and plantarflexion. He reports full sensation to light touch. 1+ palpable DP pulse. DIAGNOSTIC STUDIES/LAB DATA: Radiographs: Multiple plain films of the right hip are reviewed, which showed soft tissue swelling but no evidence for osteomyelitis. Labs: 08/28/19 labs show white blood cell 12.5, hematocrit 37, platelets 255. Sodium 138, potassium 3.5, chloride 99, BUN and creatinine 42 and 1.73. CRP of 58. ASSESSMENT AND PLAN: Mr. Pastor is an 84-year-old gentleman with 1 year of an open pressure ulcer along his right greater trochanter on the lateral hip. The patient reports that he has been treated in the wound clinic at the [place]. He was supposed to see a surgeon this week. The patient has recent increase in foul odor and drainage. Today upon review, the wound is certainly infected. The patient and I discussed an open washout with debridement of the wound. I am certainly concerned about wound healing at this point. We discussed surgical intervention, risks and benefits. He would like to proceed. I do believe the patient needs an MRI of this right hip to evaluate the bone for infection along the greater trochanter. I do see that this is already ordered. We will await the MRI results to discuss further surgical planning. For now, he can have regular diet. Tentative washout date would be 08/31/19 in the afternoon. Thank you for this orthopedic consultation. Orthopedics will follow along. [id number]/[facility] #: [id number] [place]
--- NOTE | 2019-08-29 15:12 | PN ---
Subjective Date of Service: 08/29/19 Interval History: patient seen today, awake, pleasant. no acute events overnight. NO fever or chills. Seen by ortho and awaiting MRI of the hip in order to plan washout on friday or friday. MRI ordered pending to be done Past Medical History: Unchanged from Admission Objective Active Medications: Acetaminophen (Tylenol Tab*) 650 mg PO Q4H PRN PRN Reason: MILD PAIN or TEMP > 100.4 Last Admin: 08/29/19 08:50 Dose: 650 mg Albuterol (Ventolin 2.5 Mg/3 Ml Neb.Kinjal*) 2.5 mg INH RT.[id number] AWAKE PRN PRN Reason: sob/wheezing Albuterol (Ventolin Hfa Inhaler*) 2 puff INH Q4H PRN PRN Reason: SHORTNESS OF BREATH Atorvastatin Calcium (Lipitor*) 20 mg PO BEDTIME [facility] [place] Last Admin: 08/28/19 22:24 Dose: 20 mg Cyanocobalamin (Vitamin B12 Tab*) 1,000 mcg PO DAILY [facility] Last Admin: 08/29/19 08:51 Dose: 1,000 mcg Dextrose (Dextrose 50% Vial 50 Ml*) 25 ml IV PUSH .FOR FS < 60 - SS PRN PRN Reason: FS < 60 Ferrous Gluconate (Fergon Tab*) 324 mg PO BEDTIME [facility] [place] Last Admin: 08/28/19 22:24 Dose: 324 mg Finasteride (Proscar Tab*) 5 mg PO DAILY [facility] [place] Last Admin: 08/29/19 08:51 Dose: 5 mg Gabapentin (Neurontin Cap(*)) 100 mg PO QAM [facility] [place] Last Admin: 08/29/19 08:50 Dose: 100 mg Gabapentin (Neurontin Cap(*)) 200 mg PO QPM [facility] [place] Last Admin: 08/28/19 17:53 Dose: 200 mg Heparin Sodium (Porcine) (Heparin Vial(*)) 5,000 units SUBCUT Q8HR [facility] [place] Last Admin: 08/29/19 13:30 Dose: 5,000 units Piperacillin Sod/Tazobactam (Sod 3.375 gm/ Sodium Chloride) 100 mls @ 25 mls/ hr IVPB Q8H [facility] [place] Last Admin: 08/29/19 13:30 Dose: 25 mls/hr Insulin Human Lispro (Humalog*) 0 units SUBCUT AC [facility] [place]; Protocol Last Admin: 08/29/19 13:30 Dose: 3 units Levothyroxine Sodium (Synthroid Tab*) 50 mcg PO DAILY@0600 [facility] Last Admin: 08/29/19 06:01 Dose: 50 mcg Multivitamins (Theragran Tab*) [facility] [place] [facility] Admin: 08/29/19 08:52 Dose: 1 tab Nifedipine (Procardia Xl Tab*) 30 mg PO QAM [facility] [place] Last Admin: 08/29/19 08:51 Dose: 30 mg Nystatin (Nystatin Top Powder*) 1 applic TOPICAL TID [facility] Last Admin: 08/29/19 14:08 Dose: Not Given Ondansetron HCl (Zofran Inj*) 4 mg IV Q6H PRN PRN Reason: NAUSEA/VOMITING Pantoprazole Sodium (Protonix Tab*) 20 mg PO BID [facility] [place] Last Admin: 08/29/19 08:51 Dose: 20 mg Pharmacy Consult (Zosyn Per Pharmacy*) 1 note FOLLOW UP .ZOSYN PER PHARMACY [facility] Pharmacy Profile Note (Vancomycin Trough Check) 1 note FOLLOW UP 0530 ONE Stop: 08/30/19 05:31 Sucralfate (Carafate*) 1 gm PO [facility] Last Admin: 08/29/19 08:51 Dose: 1 gm Tamsulosin HCl (Flomax Cap*) 0.4 mg PO DAILY [facility] Last Admin: 08/29/19 08:51 Dose: 0.4 mg Vital Signs - 8 hr 08/29/19 08/29/19 08/29/19 07:50 08:00 08:50 Temperature 97.6 F Pulse Rate 78 Respiratory 17 17 17 Rate Blood Pressure 140/69 (mmHg) O2 Sat by Pulse 96 Oximetry 08/29/19 08/29/19 12:07 13:24 Temperature 97.9 F Pulse Rate 71 Respiratory 18 17 Rate Blood Pressure 135/67 (mmHg) O2 Sat by Pulse 95 Oximetry Oxygen Devices in Use Now: None Appearance: awake. alert. no distress. Eyes: No Scleral Icterus, - - EOMI Ears/Nose/Mouth/Throat: NL Teeth, Lips, Gums, Mucous Membranes Moist Neck: NL Appearance and Movements; NL JVP, Trachea Midline Respiratory: Symmetrical Chest Expansion and Respiratory Effort, - - fine expiratory wheezing Cardiovascular: NL Sounds; No Murmurs; No JVD, No Edema Abdominal: NL Sounds; No Tenderness; No Distention Extremities: No Edema, - - LLE weakness and RLE externally rotated. Open wound ulcer over his right hip right greater trochanteric, foul odor to it. Skin: - - bilateral lower extremities erythema and chronic venous stasis skin changes Neurological: Alert and Oriented x 3, - - LLE weakness Result Diagrams: 08/29/19 05:02 08/29/19 05:02 Microbiology and Other Data: Microbiology 08/28/19 14:52 Aerobic Blood Culture - Preliminary Blood Venous No Growth Day 1 Anaerobic Blood Culture - Preliminary No Growth Day 1 08/28/19 14:42 Aerobic Blood Culture - Preliminary Blood Venous No Growth Day 1 Anaerobic Blood Culture - Preliminary No Growth Day 1 08/28/19 15:15 Skin and Soft Tissue MRSA/MSSA (PCR - Final Hip Right Mrsa Negative S.aureus Negative Gram Stain - Final Wound Culture - Preliminary Proteus Mirabilis Assess/Plan/Problems-Billing Assessment: 84 y/o male [facility] for [facility] infections , found to have leukocytosis and low grade fever of 99.6 on admission seen by ortho and does require wash out and wound debridement - Patient Problems (1) Decubitus ulcer, hip, right, unstageable Current Visit: Yes Status: Acute Code(s): L89.210 - PRESSURE ULCER OF RIGHT HIP, UNSTAGEABLE SNOMED Code(s): 774695754 Comment: - Given his history of diabetis and failure to respond to outpatient local wound care, now present with fever and leukocytosis, he will need to have surgical debridement and systemic antibiotics - On Vanco and zosyn, will D/c Vanco as his MRSA screen negative - Continue zoysn Day # 2. - Appreciate ortho consult. MRI ordered pending result tentative to OR on Friday - Will need ID consult on Friday (2) Diabetes mellitus, type 2 Current Visit: No Status: Chronic Priority: High Comment: - A1C 8.8% at 2018 Baseline - start Lantus while in patient at 12 untis Lispro sliding scale - Recheck A1c (3) History of CVA (cerebrovascular accident) Current Visit: Yes Status: Acute Code(s): Z86.73 - PRSNL HX OF TIA (TIA), AND CEREB INFRC W/O RESID DEFICITS SNOMED Code(s): 671796363 Comment: - Old history of right CVA and left sided weakness - Continue lipitor 20 mg HS; will add Aspirin 81 mg daily unless he does have contraindications (4) BPH (benign prostatic hyperplasia) Current Visit: No Status: Acute Code(s): N40.0 - BENIGN PROSTATIC HYPERPLASIA WITHOUT LOWER URINRY TRACT SYMP SNOMED Code(s): 730223742 Comment: - continue Tamsulosin 0.4mg daily and proscar 5 mg daily (5) COPD (chronic obstructive pulmonary disease) Current Visit: No Status: Acute Code(s): J44.9 - CHRONIC OBSTRUCTIVE PULMONARY DISEASE, UNSPECIFIED SNOMED Code(s): 83287062 Comment: - Hx of 40 yr smoking - continue Nebulizers (6) Chronic bilateral low back pain Current Visit: No Status: Acute Code(s): M54.5 - LOW BACK PAIN; G89.29 - OTHER CHRONIC PAIN SNOMED Code(s): 072342558 Comment: - Home medications, Tylenol and Gabapentin continued (7) Esophagitis Current Visit: No Status: Acute Code(s): K20.9 - ESOPHAGITIS, UNSPECIFIED SNOMED Code(s): 98553615 Comment: - EGD revealed grade D severe esophagitis on 01/13 EGD - Continue Protonix 20 mg bid (8) HTN (hypertension) Current Visit: No Status: Chronic Priority: Medium Code(s): I10 - ESSENTIAL (PRIMARY) HYPERTENSION SNOMED Code(s): 19101058 Comment: - continue home med - nifedipine 30mg, will resume home lisinopril 20 mg but will keep HCTZ on hold pending upcoming surgery unless BP gets elevated (9) Hyperlipidemia Current Visit: No Status: Chronic Priority: Medium Code(s): E78.5 - HYPERLIPIDEMIA, UNSPECIFIED SNOMED Code(s): 61168538 Comment: - Continue atorvastatin (10) Hypothyroidism Current Visit: No Status: Chronic Priority: Medium Code(s): E03.9 - HYPOTHYROIDISM, UNSPECIFIED SNOMED Code(s): 68993679 Comment: - Continue levothyroxine (11) PVD (peripheral vascular disease) Current Visit: No Status: Chronic Priority: High Code(s): I73.9 - PERIPHERAL VASCULAR DISEASE, UNSPECIFIED SNOMED Code(s): 943051339 (12) DVT prophylaxis Current Visit: No Status: Acute Code(s): VQJ4285 - SNOMED Code(s): 319913318
[2019-08-29] MEDS: Insulin GLARGINE(*) 1 UNITS UNIT SUBCUT SCH (21:24)
[2019-08-29] MEDS: Ferrous Gluconate TAB* 324 MG TAB PO SCH (21:24)
[2019-08-29] MEDS: Atorvastatin* 20 MG TAB PO SCH (21:25)
[2019-08-29] MEDS: Albuterol HFA INHALER* 8 gm MDI INH PRN (23:42)
[2019-08-30] MEDS ORDERED: Vancomycin Trough Check NOTE FOLLOW UP ONE (05:30)
[2019-08-30] MEDS: ZOSYN 3.375 GM Q8H per EXTENDED INFUSION IVPB SCH ×6 (05:31→21:40)
[2019-08-30] MEDS: Heparin VIAL(*) 5000 UNITS/ML VIAL (FIVE THOUSAND) SUBCUT SCH ×3 (05:41→21:21)
[2019-08-30] MEDS: Levothyroxine TAB* 50 MCG TAB PO SCH (05:41)
[2019-08-30 05:52] LABS: EGFR Non-African American 43.8 (>60)
[2019-08-30 07:23] LABS: Vancomycin Trough 8.4 mcg/mL
[2019-08-30] MEDS: Insulin LISPRO* 1 UNITS UNIT SUBCUT SCH ×3 (08:40→16:55)
[2019-08-30] MEDS: Lisinopril TAB* 10 MG PO SCH (08:41)
[2019-08-30] MEDS: Cyanocobalamin TAB* 500 MCG PO SCH (08:41)
[2019-08-30] MEDS: Pantoprazole TAB * 40 MG TAB PO SCH (08:41)
[2019-08-30] MEDS: Tamsulosin CAP* 0.4 MG PO SCH (08:42)
[2019-08-30] MEDS: Sucralfate TAB* 1 GM PO SCH (08:42)
[2019-08-30] MEDS: Aspirin EC TAB* 81 MG TAB.EC PO SCH (08:42)
[2019-08-30] MEDS: Finasteride TAB* 5 MG PO SCH (08:42)
[2019-08-30] MEDS: Gabapentin CAP(*) 100 MG PO SCH ×2 (08:42→17:44)
[2019-08-30] MEDS: Vitamin THERAPEUTIC TAB PO SCH (08:42)
[2019-08-30] MEDS: NIFEdipine ER TAB* 30 MG PO SCH (08:42)
[2019-08-30] MEDS: Nystatin TOP POWDER* 15 GM BTL TOPICAL SCH ×3 (08:43→21:31)
[2019-08-30] MEDS: Albuterol HFA INHALER* 8 gm MDI INH PRN (13:44)
[2019-08-30] MEDS ORDERED: Bacitracin INJECTION* 50,000 UNITS ONE (16:00)
[2019-08-30] MEDS ORDERED: Lidocaine 2% PF * 5 ML VIAL ONE (16:21)
[2019-08-30] MEDS ORDERED: Dexamethasone IV* 4 MG/ML 1 ML (4 MG) ONE (16:21)
[2019-08-30] MEDS ORDERED: Cisatracurium* 2 MG/ML MDV 5 ML ONE (16:21)
[2019-08-30] MEDS ORDERED: fentaNYL* 50 MCG/ML 2 ML VIAL (100 MCG VIAL) ONE ×2 (16:21→17:53)
[2019-08-30] MEDS ORDERED: Propofol* 10 MG/ML 20 ML BTL ONE (16:21)
[2019-08-30] MEDS ORDERED: Midazolam* 1 MG/ML 5 ML VIAL (5 MG) ONE (16:21)
[2019-08-30] MEDS ORDERED: Ondansetron INJ* 2 MG/ML VIAL ONE (16:21)
--- NOTE | 2019-08-30 16:21 | CONS ---
CONSULTATION REPORT: DATE OF CONSULT: 08/30/19 PRIMARY CARE PROVIDER: Angela Zapata NP at [facility]. PROVIDER REQUESTING CONSULTATION: Majo Aguirre NP CONSULTING SERVICE: Infectious Disease. PROVIDER: Ofelia Olea NP ATTENDING PROVIDER: Dr. Amrit Serrato * (dictated by Ofelia Olea NP). REASON FOR CONSULTATION: Right hip ulcer with concern for osteomyelitis. IMPRESSION: 1. Right hip pressure ulcer with associated cellulitis with concern for osteomyelitis. Ulcer has been present for at least a year per the patient. Plain film x-ray without signs of osteomyelitis. Elevated CRP and ESR on admission. Initial wound culture with proteus. Blood cultures with no growth to date. He has been afebrile. His leukocytosis has resolved. He has an MRI pending for later today. He has been on initially Zosyn and vancomycin and now just on Zosyn. 2. Chronic kidney disease with acute on chronic kidney injury. Creatinine is improving. 3. Peripheral vascular disease with chronic venous stasis changes to bilateral lower extremities. There is no sign of infection. PLAN: Recommend continuing Zosyn for now while we await final culture results and the results of the MRI. Further recommendations will be based off of findings during surgery, the MRI results and his clinical course. We will continue to follow along. If he does have an osteomyelitis, he will need extended course of antibiotics. HISTORY OF PRESENT ILLNESS: Mr. Pastor is an 84-year-old male with past medical history significant for diabetes mellitus type 2, hypertension, hyperlipidemia, peripheral vascular disease, iron deficiency anemia, COPD, cerebrovascular accident with residual left-sided weakness, who is mostly wheelchair-bound, chronic kidney disease stage 2 and chronic low back pain, who has been followed by the [facility] for a right hip pressure ulcer that has been present for approximately 1 year. The patient's wound was being packed, but recently with what sounds to be like a wound VAC system. The wound VAC system was discontinued due to a significant amount of tissues seen within the wound with plans to see a surgeon on 09/01/19 for possible debridement. He had had increased drainage with a foul odor from the wound. When his usual nurse came to evaluate him on Friday, they recommended that he go to the emergency room for evaluation. /While in the emergency room, the patient had leukocytosis with a white blood cell count of 12,500, an elevated ESR of 90, elevated creatinine slightly above previous records. Additionally, he had a hip and pelvis x-ray showing soft tissue swelling and defect. No specific evidence for osteomyelitis. He was referred to the hospitalist service for evaluation. While in the hospital, he was seen in consultation by Dr. Angeli Luis with Orthopedic Surgery, who recommended an MRI with plans for possible surgical intervention based off of the MRI. A wound culture was obtained with Proteus mirabilis. He had blood cultures with no growth. He has been afebrile. His leukocytosis resolved. He has been on Zosyn since his admission. He is a poor historian, but denies any fevers, chills, nausea, vomiting, diarrhea. He reports back pain, which is chronic. He reports constipation, but also states that his last bowel movement was yesterday. He denies any urinary symptoms, recent travel. MEDICATIONS: Home medications: 1. Lantus insulin 66 units subcutaneous every day. 2. Trulicity 0.75 mg subcutaneous weekly. 3. Tamsulosin 0.4 mg by mouth daily. 4. Carafate 1 g by mouth every morning. 5. Pantoprazole 20 mg by mouth twice daily. 6. Procardia 30 mg by mouth daily. 7. Multivitamin 1 tablet by mouth daily. 8. Levothyroxine 50 mcg by mouth daily. 9. Gabapentin 100 mg by mouth in the morning and 200 mg by mouth in the evening. 10. Furosemide 40 mg by mouth in the morning as needed for edema. 11. Finasteride 5 mg by mouth daily. 12. Ferrous gluconate 325 mg by mouth daily. 13. Vitamin B12 1000 mcg by mouth daily. 14. Atorvastatin 20 mg by mouth daily. 15. Albuterol HFA inhaler 2 puffs inhalation every 4 hours as needed for shortness of breath or wheeze. 16. Acetaminophen 650 mg by mouth every 6 hours as needed for pain. Hospital medications: 1. Acetaminophen 650 mg by mouth every 4 hours as needed for fever or pain. 2. Albuterol 2.5 mg inhalation nebulizer every 4 hours while awake as needed for shortness of breath or wheeze. 3. Albuterol HFA inhaler 2 puffs inhalation every 4 hours as needed for shortness of breath or wheeze. 5. Aspirin 81 mg by mouth daily. 6. Atorvastatin 20 mg by mouth daily. 7. Vitamin B12 1000 mcg by mouth daily. 8. Dextrose 25 mL IV push as needed for glucose less than 60. 9. Finasteride 5 mg by mouth daily. 10. Ferrous gluconate 324 mg by mouth daily. 11. Gabapentin 100 mg by mouth every morning and 200 mg by mouth every evening. 12. Heparin sodium 5000 units subcutaneous every 8 hours. 13. Lantus insulin 12 units subcutaneous at bedtime. 14. Humalog insulin sliding scale with meals. 15. Levothyroxine 50 mcg by mouth daily. 16. Lisinopril 20 mg by mouth daily. 17. Multivitamin 1 tablet by mouth daily. 18. Procardia XL 30 mg by mouth daily. 19. Nystatin powder, apply topical 3 times daily. 20. Zofran 4 mg IV every 6 hours as needed for nausea. 21. Protonix 20 mg by mouth twice daily. 22. Zosyn 3.375 g IV every 8 hours. 23. Carafate 1 g by mouth every morning. 24. Tamsulosin 0.4 mg by mouth daily. ALLERGIES: CEPHALEXIN causes rash. FAMILY HISTORY: Denies family history of recurrent resistant infection. Father with a history of coronary artery disease. SOCIAL HISTORY: He is a former alcoholic. He currently does not drink. He is a former smoker, quitting in 2000. Prior to that, he has a 30-pack year smoking history. Denies recreational drug use. REVIEW OF SYSTEMS: I performed a 10-point review of systems. All the pertinent positives and negatives are mentioned in the history of present illness. The remaining review of systems are negative. PHYSICAL EXAMINATION: Vital Signs: Temperature 98.4, heart rate 74, respiratory rate 18, O2 sat 94% on room air, blood pressure 155/74. General Appearance: The patient is alert, appears to be in no acute distress. Head: Normocephalic, atraumatic. EENT: Extraocular movements are intact. No subconjunctival hemorrhage. Moist mucous membranes. Neurological: He is alert and oriented to person and place. Cranial nerves II through XII are grossly intact. Cardiovascular: Regular rate and rhythm. S1, S2 present. No murmurs, rubs, or gallops heard. Respiratory: No accessory muscle use. The lungs are clear to auscultation, bilateral. Abdomen: Bowel sounds present. Abdomen is soft, nontender, nondistended. Extremities: No lower extremity edema. DP and PT pulses are 1+ and symmetric. Musculoskeletal: No clubbing or cyanosis noted, exhibits good strength. He is able to move all extremities. Psychological: Calm and cooperative. Skin: No rashes or abnormalities seen. He does have chronic skin changes to bilateral shins with dark erythema. There is no warmth or drainage from the areas. DIAGNOSTIC STUDIES/LAB DATA: BMP from 08/29/19: Sodium 138, potassium 3.5, chloride 99, CO2 of 33, BUN 42, creatinine 1.76, glucose 181. CBC from today: White blood cell count 8.4, hemoglobin 11.2, hematocrit 32, platelet count 231. CRP from admission 58.11 and ESR 90. Please see impression and recommendations outlined above. Thank you for asking us to see Mr. Pastor in consultation. Case has been reviewed with attending, Dr. Amrit Serrato, who agrees with the plan of care. Reviewed by JESS OBRIEN-Morteza 08/31/19 0834 [id number]/[facility] #: [id number] [place]
[2019-08-30] MEDS ORDERED: KETAMINE HCL* 50 MG/ML 10 ML VIAL ONE (16:22)
[2019-08-30] MEDS ORDERED: Levalbuterol HFA INHALER* 1 PUFF MDI ONE (17:16)
[2019-08-30] MEDS ORDERED: Phenylephrine 40 MCG/ML SYRINGE ONE (17:22)
[2019-08-30] MEDS ORDERED: EPHEDrine (Pressors)* 50 MG/ML VIAL ONE (17:27)
--- NOTE | 2019-08-30 17:28 | PN ---
Subjective Date of Service: 08/30/19 Interval History: Patient has no complaints. Evaluated prior to going to OR today for debridement. No acute events overnight. Patient denies fever/chills, chest pain , difficulty breathing, pain at hip, abd pain. Past Medical History: Unchanged from Admission Objective Active Medications: Acetaminophen (Tylenol Tab*) 650 mg PO Q4H PRN PRN Reason: MILD PAIN or TEMP > 100.4 Last Admin: 08/29/19 22:38 Dose: 650 mg Albuterol (Ventolin 2.5 Mg/3 Ml Neb.Kinjal*) 2.5 mg INH RT.[id number] AWAKE PRN PRN Reason: sob/wheezing Albuterol (Ventolin Hfa Inhaler*) 2 puff INH Q4H PRN PRN Reason: SHORTNESS OF BREATH Last Admin: 08/30/19 13:44 Dose: 2 puff Aspirin (Aspirin Ec Tab*) 81 mg PO DAILY [facility] Last Admin: 08/30/19 08:42 Dose: 81 mg Atorvastatin Calcium (Lipitor*) 20 mg PO BEDTIME [facility] Last Admin: 08/29/19 21:25 Dose: 20 mg Cyanocobalamin (Vitamin B12 Tab*) 1,000 mcg PO DAILY [facility] Last Admin: 08/30/19 08:41 Dose: 1,000 mcg Dextrose (Dextrose 50% Vial 50 Ml*) 25 ml IV PUSH .FOR FS < 60 - SS PRN PRN Reason: FS < 60 Ferrous Gluconate (Fergon Tab*) 324 mg PO BEDTIME [facility] Last Admin: 08/29/19 21:24 Dose: 324 mg Finasteride (Proscar Tab*) 5 mg PO DAILY [facility] Last Admin: 08/30/19 08:42 Dose: 5 mg Gabapentin (Neurontin Cap(*)) 100 mg PO QAM [facility] Last Admin: 08/30/19 08:42 Dose: 100 mg Gabapentin (Neurontin Cap(*)) 200 mg PO QPM [facility] Last Admin: 08/29/19 18:05 Dose: 200 mg Heparin Sodium (Porcine) (Heparin Vial(*)) 5,000 units SUBCUT Q8HR [facility] Last Admin: 08/30/19 13:48 Dose: Not Given Piperacillin Sod/Tazobactam (Sod 3.375 gm/ Sodium Chloride) 100 mls @ 25 mls/ hr IVPB Q8H [facility] Last Admin: 08/30/19 13:44 Dose: 25 mls/hr Insulin Glargine (Lantus(*)) 12 units SUBCUT BEDTIME [facility] Last Admin: 08/29/19 21:24 Dose: 12 units Insulin Human Lispro (Humalog*) 0 units SUBCUT AC [facility]; Protocol Last Admin: 08/30/19 16:55 Dose: Not Given Levothyroxine Sodium (Synthroid Tab*) 50 mcg PO DAILY@0600 [facility] Last Admin: 08/30/19 05:41 Dose: 50 mcg Lisinopril (Prinivil Tab*) 20 mg PO DAILY [facility] Last Admin: 08/30/19 08:41 Dose: 20 mg Multivitamins ([facility]agran Tab*) [facility] [place] Admin: 08/30/19 08:42 Dose: 1 tab Nifedipine (Procardia Xl Tab*) 30 mg PO QAM [facility] Last Admin: 08/30/19 08:42 Dose: 30 mg Nystatin (Nystatin Top Powder*) 1 applic TOPICAL TID [facility] Last Admin: 08/30/19 13:49 Dose: 1 applic Ondansetron HCl (Zofran Inj*) 4 mg IV Q6H PRN PRN Reason: NAUSEA/VOMITING Pantoprazole Sodium (Protonix Tab*) 20 mg PO BID [facility] Last Admin: 08/30/19 08:41 Dose: 20 mg Pharmacy Consult (Zosyn Per Pharmacy*) 1 note FOLLOW UP .ZOSYN PER PHARMACY [facility] Sucralfate (Carafate*) 1 gm PO QAM [facility] Last Admin: 08/30/19 08:42 Dose: 1 gm Tamsulosin HCl (Flomax Cap*) 0.4 mg PO DAILY [facility] Last Admin: 08/30/19 08:42 Dose: 0.4 mg Vital Signs - 8 hr 08/30/19 08/30/19 08/30/19 12:03 12:49 16:09 Temperature 98.4 F 97.4 F Pulse Rate 82 76 Respiratory 16 18 17 Rate Blood Pressure 134/67 126/58 (mmHg) O2 Sat by Pulse 93 96 Oximetry Oxygen Devices in Use Now: None Appearance: Elderly white male, laying in bed, appearing in NAD Eyes: No Scleral Icterus, - - PERRL Ears/Nose/Mouth/Throat: Mucous Membranes Moist Neck: NL Appearance and Movements; NL JVP Respiratory: Symmetrical Chest Expansion and Respiratory Effort, Clear to Auscultation Cardiovascular: NL Sounds; No Murmurs; No JVD, RRR Abdominal: - - abd soft, nontender, nondistended Extremities: No Edema, No Clubbing, Cyanosis Skin: No Rash or Ulcers Neurological: Alert and Oriented x 3, NL Muscle Strength and Tone Result Diagrams: 08/29/19 05:02 08/30/19 05:19 Microbiology and Other Data: Microbiology 08/28/19 14:52 Aerobic Blood Culture - Preliminary Blood Venous No Growth Day 1 Anaerobic Blood Culture - Preliminary No Growth Day 1 08/28/19 14:42 Aerobic Blood Culture - Preliminary Blood Venous No Growth Day 1 Anaerobic Blood Culture - Preliminary No Growth Day 1 08/28/19 15:15 Skin and Soft Tissue MRSA/MSSA (PCR - Final Hip Right Mrsa Negative S.aureus Negative Gram Stain - Final Wound Culture - Preliminary [facility]: MRI HIP RIGHT 08/30/19 FINDINGS: There is a large soft tissue defect present along the lateral aspect of the right with surrounding soft tissue swelling. There is also edema within the right gluteal muscles. Just deep to the defect there is a fluid collection which appears to be in the trochanteric bursa measuring 4.1 by a 4.3 x 1.2 cm. No joint effusion is seen. No bone marrow edema is present. 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 There is likely a complete tear of the right gluteus medius tendon. The rectosigmoid colon is distended with stool. The visualized small bowel and colon otherwise are nondistended. No free intraperitoneal fluid is seen. IMPRESSION: THERE IS A SOFT TISSUE DEFECT IN THE SUBCUTANEOUS TISSUES ALONG THE LATERAL RIGHT THIGH. THERE IS SURROUNDING SOFT TISSUE SWELLING AND EDEMA WITHIN THE GLUTEAL MUSCLES SUGGESTIVE OF CELLULITIS AND MYOSITIS. THE SOFT TISSUE DEFECT EXTENDS TO THE LEVEL OF A COLLECTION LIKELY REPRESENTING THE TROCHANTERIC BURSA WHICH IS SUSPICIOUS FOR AN INFECTED COLLECTION. THERE IS NO EVIDENCE FOR OSTEOMYELITIS. Assess/Plan/Problems-Billing Assessment: 84 y/o male present [facility] ED [facility] for right hip infections , found to have leukocytosis and low grade fever of 99.6 on admission seen by ortho and does require wash out and wound debridement - Patient Problems (1) Decubitus ulcer, hip, right, unstageable Current Visit: Yes Status: Acute Code(s): L89.210 - PRESSURE ULCER OF RIGHT HIP, UNSTAGEABLE SNOMED Code(s): 008067643 Comment: - failure to respond to outpatient local wound care. Presents this admission with fever and leukocytosis - surgical debridgement today with Dr. Luis, appreciate her consultation. MRI results as above, no osteomyelitis though concern for myositis. - Continue zosyn - Appreciate ID consult. 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 Continuing this as patient was NPO today for procedure (insulin was held today) (4) BPH (benign prostatic hyperplasia) Current Visit: No Status: Acute Code(s): N40.0 - BENIGN PROSTATIC HYPERPLASIA WITHOUT LOWER URINRY TRACT SYMP SNOMED Code(s): 305133238 Comment: - continue Tamsulosin 0.4mg daily and proscar 5 mg daily (5) COPD (chronic obstructive pulmonary disease) Current Visit: No Status: Acute Code(s): J44.9 - CHRONIC OBSTRUCTIVE PULMONARY DISEASE, UNSPECIFIED SNOMED Code(s): 44108288 Comment: - Hx of 40 yr smoking - continue Nebulizers (6) HTN (hypertension) Current Visit: No Status: Chronic Priority: Medium Code(s): I10 - ESSENTIAL (PRIMARY) HYPERTENSION SNOMED Code(s): 82121777 Comment: - normotensive overall today - nifedipine 30mg, will resume home lisinopril 20 mg but will keep HCTZ on hold pending upcoming surgery unless BP gets elevated (7) Chronic bilateral low back pain Current Visit: No Status: Acute Code(s): M54.5 - LOW BACK PAIN; G89.29 - OTHER CHRONIC PAIN SNOMED Code(s): 310857256 Comment: - Home medications, Tylenol and Gabapentin continued (8) Esophagitis Current Visit: No Status: Acute Code(s): K20.9 - ESOPHAGITIS, UNSPECIFIED SNOMED Code(s): 13896947 Comment: - EGD revealed grade D severe esophagitis on 01/13 EGD - Continue Protonix 20 mg bid (9) Hypothyroidism Current Visit: No Status: Chronic Priority: Medium Code(s): E03.9 - HYPOTHYROIDISM, UNSPECIFIED SNOMED Code(s): 82781635 Comment: - Continue levothyroxine (10) DVT prophylaxis Current Visit: No Status: Acute Code(s): TZS8735 - SNOMED Code(s): 800971436 (11) Full code status Current Visit: No Status: Acute Priority: High Code(s): Z78.9 - OTHER SPECIFIED HEALTH STATUS SNOMED Code(s): 078439664 Status and Disposition: Pending progress after surgical debridement
[2019-08-30] MEDS ORDERED: VASOPRESSIN 20 UNITS/ML 1 ML VIAL ONE (17:30)
[2019-08-30] MEDS ORDERED: PROCHLORPERAZINE INJ 5 MG/ML 2 ML VIAL ONE (18:05)
[2019-08-30] MEDS ORDERED: ROPIVACAINE 5 MG/ML 30 ML BTL (0.5%) ONE (18:30)
[2019-08-30] MEDS ORDERED: Neostigmine Methylsulfate* 1 MG/ML 10 ML VIAL (1 mg/ml) ONE (18:52)
[2019-08-30] MEDS ORDERED: Glycopyrrolate IV* 0.2 MG/ML 1 ML VIAL ONE (18:52)
[2019-08-30] MEDS ORDERED: Levalbuterol 0.63MG/3ML NEB* UNIT OF USE INH PRN (19:12)
[2019-08-30] MEDS ORDERED: PROCHLORPERAZINE INJ 5 MG/ML 2 ML VIAL IV PRN (19:12)
[2019-08-30] MEDS ORDERED: HYDROmorphone INJ1* 1 MG/ML SYRINGE IV PRN (19:12)
[2019-08-30] MEDS ORDERED: fentaNYL* 50 MCG/ML 2 ML VIAL (100 MCG VIAL) IV PRN (19:12)
[2019-08-30] MEDS ORDERED: Naloxone* 0.4 MG/ML 1 ML VIAL IV PRN (19:12)
[2019-08-30] MEDS ORDERED: Levalbuterol 0.63MG/3ML NEB* UNIT OF USE INH ONE (19:19)
[2019-08-30] MEDS ORDERED: oxyCODONE/Acetamin 5/325 MG* TAB PO PRN (20:29)
[2019-08-30] MEDS: Atorvastatin* 20 MG TAB PO SCH (21:20)
[2019-08-30] MEDS: Ferrous Gluconate TAB* 324 MG TAB PO SCH (21:20)
[2019-08-30] MEDS: Insulin GLARGINE(*) 1 UNITS UNIT SUBCUT SCH (21:41)
[2019-08-31] MEDS: Acetaminophen TAB* 325 MG PO PRN ×2 (03:55→18:31)
--- NOTE | 2019-08-31 05:04 | OP ---
OPERATIVE NOTE: DATE OF OPERATION: 08/30/19 DATE OF : 39 ATTENDING SURGEON: Angeli Luis MD MAGISTERIAL DISTRICT JUDGE: ROE Martin Mr. Rivera did help throughout the procedure with preparation of the leg, wound retraction, manipulati on of the hip, and wound closure. ANESTHESIOLOGIST: Dr. Branch. ANESTHESIA TYPE: General. PRE-OP DIAGNOSIS: Right hip chronic pressure ulcer and infection with open wound and infected trocha nteric bursa. POST-OP DIAGNOSIS: Right hip chronic pressure ulcer and infection with open wound and infected troch anteric bursa. OPERATIVE PROCEDURE: Right hip wound, open irrigation and debridement with infected trochanteric bur sectomy. COMPLICATIONS: None. ESTIMATED BLOOD LOSS: 150 cc. SPECIMEN: Multiple culture swabs were sent for culture and sensitivities. BRIEF HISTORY/INDICATION: Mr. Pastor is an 84-year-old gentleman who has had an open wound on his ri ght hip for 1 year. This was started as a pressure ulcer and he was seen by the wound clinic in the [place] for several months. Over the last 1 week, he developed increasing drainage and foul odor from the wound. He was admitted to [facility] and I was consulted for surgical washout of the wou nd. Preoperative MRI showed infected greater trochanteric bursa as well as some inflammation along t he gluteal tendon and muscle of the buttock. The patient and I discussed his options and he wished t o proceed with an open washout of the wound with significant debridement and bursectomy. Informed co nsent was obtained from the patient. He understood the risks of surgery included, but were not limit ed to bleeding, infection, damage to nearby structures, continued pain, need for further surgery, int raoperative complications, stroke, heart attack, blood clot and . He wished to proceed. INTRAOPERATIVE FINDINGS: The patient was noted to have a 3 cm open wound with necrotic tissue surrou nding it. The subcutaneous fat and fascia were all visibly infected and necrotic around this wound. Underneath the fascia, there was some purulence collected around the bursa, which also appear to be infected. There was no direct communication to the hip joint. DESCRIPTION OF PROCEDURE: Mr. Pastor was identified in the preoperative unit. His right lower extre mity was marked as the correct operative site. Informed consent was signed and placed in the chart. The patient was taken to the operating room and placed under anesthesia. He was placed in the left lateral decubitus position on the pegboard. All bony prominences were well padded. Right lower extr emity was prepped and draped in the usual sterile fashion. Preop time out was made to correctly iden tify the patient's side and site. The patient had been on IV antibiotics and had those running befor e the procedure. A 10-blade was used to make a 7 cm incision, laterally through the open wound. The skin around the open wound was then carefully excised. There was necrotic and chronically infected soft tissue in the subcutaneous fat. This was debrided with a rongeur. There was necrotic subcutane ous tissue along the lateral fascial layer and this was also debrided. Three liters of sterile salin e with bacitracin was used to irrigate this area. Next a 10-blade was used to make a longitudinal in cision along the lateral fascia in line with the skin incision. Immediately, there was some purulenc e encountered and necrotic infected looking greater trochanteric bursa. This area was thoroughly was hed with another 3 L of sterile saline. The bursa was carefully excised. Any infected appearing sof t tissue was carefully excised. Another 3 L of sterile saline was used to irrigate. Lateral fascial layer was closed using interrupted #1 Vicryl. The rest of the incision was closed in a layered fash ion using 0 and 2-0 Vicryl. Skin was closed using running 3-0 nylon suture. A total of 12 L of flui d were used for irrigation. Sterile Xeroform, 4x4s, and paper tape were used to cover the incision. The patient's anesthesia was reversed without difficulty. He was taken to the PACU in stable condit ion. Intended weightbearing will be weightbearing as tolerated. Intended DVT prophylaxis will be Lo venox. [id number]/[facility] #: [id number]
[2019-08-31] MEDS: Levothyroxine TAB* 50 MCG TAB PO SCH (05:35)
[2019-08-31] MEDS: ZOSYN 3.375 GM Q8H per EXTENDED INFUSION IVPB SCH ×6 (05:36→22:23)
[2019-08-31] MEDS: Heparin VIAL(*) 5000 UNITS/ML VIAL (FIVE THOUSAND) SUBCUT SCH ×3 (05:40→22:24)
[2019-08-31 06:34] LABS: Hematocrit 32 % (42-52); Hemoglobin 10.7 g/dL (14.0-18.0); Mean Corpuscular HGB Conc 34 g/dL (31-36); Mean Corpuscular Hemoglobin 29 pg (27-31); Mean Corpuscular Volume 87 fL (80-94); Mean Platelet Volume 8.4 fL (7.4-10.4); Platelet Count 254 10^3/uL (150-450); Red Blood Count 3.64 10^6 /uL (4.18-5.48); Red Cell Distribution Width 14 % (10-15); White Blood Count 9.4 10^3/uL (3.5-10.8)
[2019-08-31 06:55] LABS: BUN/Creatinine Ratio 19.4 (8-20); EGFR African American 52.2 (>60); EGFR Non-African American 43.1 (>60); Potassium 3.9 mmol/L (3.5-5.0)
[2019-08-31] MEDS: Finasteride TAB* 5 MG PO SCH (08:59)
[2019-08-31] MEDS: Gabapentin CAP(*) 100 MG PO SCH ×2 (08:59→18:32)
[2019-08-31] MEDS: Tamsulosin CAP* 0.4 MG PO SCH (08:59)
[2019-08-31] MEDS: Aspirin EC TAB* 81 MG TAB.EC PO SCH (09:00)
[2019-08-31] MEDS: Lisinopril TAB* 10 MG PO SCH (09:00)
[2019-08-31] MEDS: Pantoprazole TAB * 40 MG TAB PO SCH (09:00)
[2019-08-31] MEDS: Vitamin THERAPEUTIC TAB PO SCH (09:00)
[2019-08-31] MEDS: Cyanocobalamin TAB* 500 MCG PO SCH (09:00)
[2019-08-31] MEDS: Sucralfate TAB* 1 GM PO SCH (09:01)
[2019-08-31] MEDS: NIFEdipine ER TAB* 30 MG PO SCH (09:01)
[2019-08-31] MEDS: Insulin LISPRO* 1 UNITS UNIT SUBCUT SCH ×3 (09:02→18:31)
[2019-08-31] MEDS: Nystatin TOP POWDER* 15 GM BTL TOPICAL SCH ×3 (09:03→22:24)
--- NOTE | 2019-08-31 16:30 | PN ---
Progress Note - Progress Note Date of Service: 08/31/19 SOAP: Subjective: []Pt seen and examined at bedside. He feels well, his right hip is not painful. Denies CP,SOB, dizziness or nausea. Objective: []Gen: NAD, appears well RLE: Dressing CDI, thigh is soft, DF/PF intact, DP2+, sensation intact to light touch distally. Calves supple and nontender without erythema, edema or palpable cord Assessment: POD 1 sp Right hip wound, open irrigation and debridement with infected trochanteric bursectomy. Plan: []WBAT PT.OT on zosyn per ID for GBS On heparin DVT prophy in house, rec lovenox at DC Vital Signs Temp 97.9 F 08/31/19 16:28 Pulse 82 08/31/19 16:28 Resp 18 08/31/19 16:28 BP 131/63 08/31/19 16:28 Pulse Ox 98 08/31/19 16:28 Intake & Output 08/30/19 08/31/19 08/31/19 18:59 06:59 18:59 Intake Total 320 1260 360 Output Total 2175 300 Balance -1855 1260 60 Weight 200 lb 195 lb 8 oz Intake: IV Fluids 800 20 Lr 800 NS (0.9%) 20 IVPB 100 100 ABX - ZOSYN 100 100 Oral 320 360 240 Output: Urine 2175 300 Other: Estimated Void Large Medium Date of Last Bowel 08/30/2019 Movement # Bowel Movements 1 0 Estimated Stool Amount Medium Medium # Voids 1 Laboratory Last Values WBC 9.4 10^3/uL (3.5-10.8) 08/31/19 05:17 RBC 3.64 10^6 /uL (4.18-5.48) L 08/31/19 05:17 Hgb 10.7 g/dL (14.0-18.0) L 08/31/19 05:17 Hct 32 % (42-52) L 08/31/19 05:17 MCV 87 fL (80-94) 08/31/19 05:17 MCH 29 pg (27-31) 08/31/19 05:17 MCHC 34 g/dL (31-36) 08/31/19 05:17 RDW 14 % (10-15) 08/31/19 05:17 Plt Count 254 10^3/uL (150-450) 08/31/19 05:17 MPV 8.4 fL (7.4-10.4) 08/31/19 05:17 Neut % (Auto) 67.3 % 08/29/19 05:02 Lymph % (Auto) 22.2 % 08/29/19 05:02 Ritchie % (Auto) 6.3 % 08/29/19 05:02 Eos % (Auto) 3.6 % 08/29/19 05:02 Baso % (Auto) 0.6 % 08/29/19 05:02 Absolute Neuts (auto) 5.6 10^3/ul (1.5-7.7) 08/29/19 05:02 Absolute Lymphs (auto) 1.9 10^3/ul (1.0-4.8) 08/29/19 05:02 Absolute Monos (auto) 0.5 10^3/ul (0-0.8) 08/29/19 05:02 Absolute Eos (auto) 0.3 10^3/ul (0-0.6) 08/29/19 05:02 Absolute Basos (auto) 0.0 10^3/ul (0-0.2) 08/29/19 05:02 Absolute Nucleated RBC 0.0 10^3/ul 08/29/19 05:02 Nucleated RBC % 0.0 08/29/19 05:02 ESR 90 mm/Hr (0-19) H 08/28/19 13:03 Sodium 140 mmol/L (135-145) 08/31/19 05:17 Potassium 3.9 mmol/L (3.5-5.0) 08/31/19 05:17 Chloride 101 mmol/L (101-111) 08/31/19 05:17 Carbon Dioxide 29 mmol/L (22-32) 08/31/19 05:17 Anion Gap 10 mmol/L (2-11) 08/31/19 05:17 BUN 30 mg/dL (6-24) H 08/31/19 05:17 Creatinine 1.55 mg/dL (0.67-1.17) H 08/31/19 05:17 Est GFR ( Amer) 52.2 (>60) 08/31/19 05:17 Est GFR (Non-Af Amer) 43.1 (>60) 08/31/19 05:17 BUN/Creatinine Ratio 19.4 (8-20) 08/31/19 05:17 Glucose 323 mg/dL (70-100) H 08/31/19 05:17 POC Glucose (mg/dL) 236 mg/dL (70-100) H 08/31/19 11:54 Hemoglobin A1c 9.1 % (4.0-5.6) H 08/31/19 05:17 Lactic Acid 1.4 mmol/L (0.5-2.0) 08/28/19 18:51 Calcium 9.0 mg/dL (8.6-10.3) 08/31/19 05:17 Magnesium 2.0 mg/dL (1.9-2.7) 08/28/19 13:03 Total Bilirubin 0.70 mg/dL (0.2-1.0) 08/28/19 13:03 AST 15 U/L (13-39) 08/28/19 13:03 ALT 13 U/L (7-52) 08/28/19 13:03 Alkaline Phosphatase 91 U/L (34-104) 08/28/19 13:03 C-Reactive Protein 58.11 mg/L (<8.01) H 08/28/19 13:03 Total Protein 7.1 g/dL (6.4-8.9) 08/28/19 13:03 Albumin 3.9 g/dL (3.2-5.2) 08/28/19 13:03 Globulin 3.2 g/dL (2-4) 08/28/19 13:03 Albumin/Globulin Ratio 1.2 (1-3) 08/28/19 13:03 Prealbumin 19 mg/dL (18-38) 08/28/19 17:25 TSH 4.71 mcIU/mL (0.34-5.60) 08/28/19 17:25 Vancomycin Trough 8.4 mcg/mL 08/30/19 05:19
--- NOTE | 2019-08-31 18:18 | PN ---
Subjective Date of Service: 08/31/19 Interval History: No acute events overnight per nursing. Patient has no complaints today. Tells me his right hip is not in pain. Patient denies fever/chills, chest pain, difficulty breathing, abd pain, nausea. Past Medical History: Unchanged from Admission Objective Active Medications: Acetaminophen (Tylenol Tab*) 650 mg PO Q4H PRN PRN Reason: MILD PAIN or TEMP > 100.4 Last Admin: 08/31/19 03:55 Dose: 650 mg Albuterol (Ventolin 2.5 Mg/3 Ml Neb.Kinjal*) 2.5 mg INH [id number] AWAKE PRN PRN Reason: sob/wheezing Albuterol (Ventolin Hfa Inhaler*) 2 puff INH Q4H PRN PRN Reason: SHORTNESS OF BREATH Last Admin: 08/30/19 13:44 Dose: 2 puff Aspirin (Aspirin Ec Tab*) [address] [facility] Last Admin: 08/31/19 09:00 Dose: 81 mg Atorvastatin Calcium (Lipitor*) 20 mg PO BEDTIME [facility] Last Admin: 08/30/19 21:20 Dose: 20 mg Cyanocobalamin (Vitamin B12 Tab*) 1,[address] [facility] Last Admin: 08/31/19 09:00 Dose: 1,000 mcg Dextrose (Dextrose 50% Vial 50 Ml*) 25 ml IV PUSH .FOR FS < 60 - SS PRN PRN Reason: FS < 60 Ferrous Gluconate (Fergon Tab*) [address] [facility] Last Admin: 08/30/19 21:20 Dose: 324 mg Finasteride (Proscar Tab*) 5 mg PO DAILY [facility] Last Admin: 08/31/19 08:59 Dose: 5 mg Gabapentin (Neurontin Cap(*)) 100 mg PO QAM [facility] Last Admin: 08/31/19 08:59 Dose: 100 mg Gabapentin (Neurontin Cap(*)) [address] [facility] Last Admin: 08/30/19 17:44 Dose: Not Given Heparin Sodium (Porcine) (Heparin Vial(*)) 5,000 units SUBCUT Q8HR [facility] Last Admin: 08/31/19 13:33 Dose: 5,000 units Piperacillin Sod/Tazobactam (Sod 3.375 gm/ Sodium Chloride) 100 mls @ 25 mls/ hr IVPB Q8H [facility] Last Admin: 08/31/19 13:33 Dose: 25 mls/hr Insulin Glargine (Lantus(*)) [address] [facility] Last Admin: 08/30/19 21:41 Dose: 12 units Insulin Human Lispro (Humalog*) [address] [facility]; Protocol Last Admin: 08/31/19 13:33 Dose: 6 units Levothyroxine Sodium (Synthroid Tab*) 50 mcg PO DAILY@0600 [facility] Last Admin: 08/31/19 05:35 Dose: 50 mcg Lisinopril (Prinivil Tab*) [address] [facility] Last Admin: 08/31/19 09:00 Dose: 20 mg [facility]it[facility] ([facility]*) [facility] Admin: 08/31/19 09:00 Dose: 1 tab Nifedipine (Procardia Xl Tab*) [address] [facility] Last Admin: 08/31/19 09:01 Dose: 30 mg Nystatin (Nystatin Top Powder*) [address] [facility] Last Admin: 08/31/19 13:41 Dose: 1 applic Ondansetron HCl (Zofran Inj*) 4 mg IV Q6H PRN PRN Reason: NAUSEA/VOMITING Oxycodone/Acetaminophen (Percocet 5/325 Tab*) 1 tab PO Q6H PRN PRN Reason: PAIN - MODERATE Pantoprazole Sodium (Protonix Tab*) [address] [facility] Last Admin: 08/31/19 09:00 Dose: 40 mg Pharmacy Consult (Zosyn Per Pharmacy*) 1 note FOLLOW UP .ZOSYN PER PHARMACY [facility] Sucralfate (Carafate*) [facility] Last Admin: 08/31/19 09:01 Dose: 1 gm Tamsulosin HCl (Flomax Cap*) 0.[address] [facility] Last Admin: 08/31/19 08:59 Dose: 0.4 mg Vital Signs - 8 hr 08/31/19 08/31/19 08/31/19 11:28 12:15 13:34 Temperature 97.6 F Pulse Rate 74 Respiratory 14 16 16 Rate Blood Pressure 112/61 (mmHg) O2 Sat by Pulse 96 Oximetry 08/31/19 16:28 Temperature 97.9 F Pulse Rate 82 Respiratory 18 Rate Blood Pressure 131/63 (mmHg) O2 Sat by Pulse 98 Oximetry Oxygen Devices in Use Now: None Appearance: Elderly white male, laying in hospital bed, appearing in NAD and comfortable Eyes: No Scleral Icterus, - - PERRL Ears/Nose/Mouth/Throat: Mucous Membranes Moist Neck: NL Appearance and Movements; NL JVP Respiratory: Symmetrical Chest Expansion and Respiratory Effort, Clear to Auscultation Cardiovascular: NL Sounds; No Murmurs; No JVD, RRR Abdominal: - - abd soft, nontender, nondistended Extremities: No Edema, No Clubbing, Cyanosis, - - right hip with dressings, appear clean Skin: No Rash or Ulcers Neurological: Alert and Oriented x 3 Result Diagrams: 08/31/19 05:17 08/31/19 05:17 Microbiology and Other Data: Microbiology 08/28/19 14:52 Aerobic Blood Culture - Preliminary Blood Venous No Growth Day 1 Anaerobic Blood Culture - Preliminary No Growth Day 1 08/28/19 14:42 Aerobic Blood Culture - Preliminary Blood Venous No Growth Day 1 Anaerobic Blood Culture - Preliminary No Growth Day 1 08/28/19 15:15 Skin and Soft Tissue MRSA/MSSA (PCR - Final Hip Right Mrsa Negative S.aureus Negative Gram Stain - Final Wound Culture - Preliminary Proteus Mirabilis Diagnostic Imaging: MRI HIP RIGHT 08/30/19 FINDINGS: There is a large soft tissue defect present along the lateral aspect of the right with surrounding soft tissue swelling. There is also edema within the right gluteal muscles. Just deep to the defect there is a fluid collection which appears to be in the trochanteric bursa measuring 4.1 by a 4.3 x 1.2 cm. No joint effusion is seen. No bone marrow edema is present. 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 There is likely a complete tear of the right gluteus medius tendon. The rectosigmoid colon is distended with stool. The visualized small bowel and colon otherwise are nondistended. No free intraperitoneal fluid is seen. IMPRESSION: THERE IS A SOFT TISSUE DEFECT IN THE SUBCUTANEOUS TISSUES ALONG THE LATERAL RIGHT THIGH. THERE IS SURROUNDING SOFT TISSUE SWELLING AND EDEMA WITHIN THE GLUTEAL MUSCLES SUGGESTIVE OF CELLULITIS AND MYOSITIS. THE SOFT TISSUE DEFECT EXTENDS TO THE LEVEL OF A COLLECTION LIKELY REPRESENTING THE TROCHANTERIC BURSA WHICH IS SUSPICIOUS FOR AN INFECTED COLLECTION. THERE IS NO EVIDENCE FOR OSTEOMYELITIS. Assess/Plan/Problems-Billing Assessment: 84 y/o male present to ED [facility] for right hip infections , found to have leukocytosis and low grade fever of 99.6 on admission seen by ortho and does require wash out and wound debridement - Patient Problems (1) Decubitus ulcer, hip, right, unstageable Current Visit: Yes Status: Acute Code(s): L89.210 - PRESSURE ULCER OF RIGHT HIP, UNSTAGEABLE SNOMED Code(s): 099280197 Comment: - failure to respond to outpatient local wound care. Presents this admission with fever and leukocytosis - surgical debridement 08/30/[address] Luis which also included trochanteric bursectomy, appreciate her consultation. MRI results as above, no osteomyelitis though concern for myositis. - Appreciate ID consult. Agree with laurentsyn, awaiting culture from OR to direct abx selection -afebrile (2) History of CVA (cerebrovascular accident) Current Visit: Yes Status: Acute Code(s): Z86.73 - PRSNL HX OF TIA (TIA), AND CEREB INFRC W/O RESID DEFICITS SNOMED Code(s): 852558635 Comment: - History of prior CVA with residual right sided weakness - Continue lipitor 20 mg HS and aspirin (3) Diabetes mellitus, type 2 Current Visit: No Status: Chronic Priority: High Comment: - A1C 8.8% at 01/2019 Baseline, pending repeat tomorrow - increasing lantus to 15 U daily, continue SS lispro (4) BPH (benign prostatic hyperplasia) Current Visit: No Status: Acute Code(s): N40.0 - BENIGN PROSTATIC HYPERPLASIA WITHOUT LOWER URINRY TRACT SYMP SNOMED Code(s): 999418736 Comment: - continue Tamsulosin 0.4mg daily and proscar 5 mg daily (5) COPD (chronic obstructive pulmonary disease) Current Visit: No Status: Acute Code(s): J44.9 - CHRONIC OBSTRUCTIVE PULMONARY DISEASE, UNSPECIFIED SNOMED Code(s): 21510727 Comment: - Hx of 40 yr smoking - continue Nebulizers (6) HTN (hypertension) Current Visit: No Status: Chronic Priority: Medium Code(s): I10 - ESSENTIAL (PRIMARY) HYPERTENSION SNOMED Code(s): 16997501 Comment: - normotensive overall today - nifedipine 30mg, will resume home lisinopril 20 mg but will keep HCTZ on hold considering he has been well controlled (7) Chronic bilateral low back pain Current Visit: No Status: Acute Code(s): M54.5 - LOW BACK PAIN; G89.29 - OTHER CHRONIC PAIN SNOMED Code(s): 734129956 Comment: - Home medications, Tylenol and Gabapentin continued (8) Esophagitis Current Visit: No Status: Acute Code(s): K20.9 - ESOPHAGITIS, UNSPECIFIED SNOMED Code(s): 37070628 Comment: - EGD revealed grade D severe esophagitis on 01/13 EGD - Continue Protonix 20 mg bid (9) Hypothyroidism Current Visit: No Status: Chronic Priority: Medium Code(s): E03.9 - HYPOTHYROIDISM, UNSPECIFIED SNOMED Code(s): 41900028 Comment: - Continue levothyroxine (10) CKD (chronic kidney disease) Current Visit: Yes Status: Acute Code(s): N18.9 - CHRONIC KIDNEY DISEASE, UNSPECIFIED SNOMED Code(s): 462217033 Comment: -at baseline (11) DVT prophylaxis Current Visit: No Status: Acute Code(s): UNP3704 - SNOMED Code(s): 545251984 Comment: -HSQ (12) Full code status Current Visit: No Status: Acute Priority: High Code(s): Z78.9 - OTHER SPECIFIED HEALTH STATUS SNOMED Code(s): 329610770 Status and Disposition: Pending progress after surgical debridement
[2019-08-31] MEDS: Ferrous Gluconate TAB* 324 MG TAB PO SCH (21:28)
[2019-08-31] MEDS: Insulin GLARGINE(*) 1 UNITS UNIT SUBCUT SCH (21:28)
[2019-08-31] MEDS: Atorvastatin* 20 MG TAB PO SCH (21:28)
[2019-09-01] MEDS: ZOSYN 3.375 GM Q8H per EXTENDED INFUSION IVPB SCH ×6 (05:38→22:37)
[2019-09-01] MEDS: Acetaminophen TAB* 325 MG PO PRN (05:42)
[2019-09-01] MEDS: Heparin VIAL(*) 5000 UNITS/ML VIAL (FIVE THOUSAND) SUBCUT SCH ×3 (05:43→22:09)
[2019-09-01] MEDS: Levothyroxine TAB* 50 MCG TAB PO SCH (05:43)
[2019-09-01 06:16] LABS: ABS Basophils 0.1 10^3/ul (0-0.2); ABS Eosinophils 0.5 10^3/ul (0-0.6); ABS Lymphocytes 1.7 10^3/ul (1.0-4.8); ABS Monocytes 0.5 10^3/ul (0-0.8); ABS Neutrophils 5.8 10^3/ul (1.5-7.7); Eosinophil % 5.7 %; Hematocrit 31 % (42-52); Hemoglobin 10.3 g/dL (14.0-18.0); Lymphocyte % 20.1 %; Mean Corpuscular HGB Conc 33 g/dL (31-36); Mean Corpuscular Hemoglobin 29 pg (27-31); Mean Corpuscular Volume 88 fL (80-94); Mean Platelet Volume 8.2 fL (7.4-10.4); Platelet Count 247 10^3/uL (150-450); Red Blood Count 3.52 10^6 /uL (4.18-5.48); Red Cell Distribution Width 14 % (10-15); White Blood Count 8.5 10^3/uL (3.5-10.8)
[2019-09-01 06:25] LABS: BUN/Creatinine Ratio 18.8 (8-20); Calcium 8.8 mg/dL (8.6-10.3); EGFR African American 43.6 (>60); EGFR Non-African American 36.1 (>60); Potassium 3.9 mmol/L (3.5-5.0)
[2019-09-01] MEDS: Insulin LISPRO* 1 UNITS UNIT SUBCUT SCH ×3 (08:19→17:02)
[2019-09-01] MEDS: Lisinopril TAB* 10 MG PO SCH (08:20)
[2019-09-01] MEDS: Tamsulosin CAP* 0.4 MG PO SCH (08:20)
[2019-09-01] MEDS: Cyanocobalamin TAB* 500 MCG PO SCH (08:20)
[2019-09-01] MEDS: Gabapentin CAP(*) 100 MG PO SCH ×2 (08:21→17:02)
[2019-09-01] MEDS: NIFEdipine ER TAB* 30 MG PO SCH (08:21)
[2019-09-01] MEDS: Sucralfate TAB* 1 GM PO SCH (08:21)
[2019-09-01] MEDS: Vitamin THERAPEUTIC TAB PO SCH (08:21)
[2019-09-01] MEDS: Finasteride TAB* 5 MG PO SCH (08:21)
[2019-09-01] MEDS: Pantoprazole TAB * 40 MG TAB PO SCH (08:21)
[2019-09-01] MEDS: Aspirin EC TAB* 81 MG TAB.EC PO SCH (08:21)
[2019-09-01] MEDS: Nystatin TOP POWDER* 15 GM BTL TOPICAL SCH ×3 (08:23→22:14)
--- NOTE | 2019-09-01 09:26 | PN ---
Progress Note - Progress Note Date of Service: 09/01/19 SOAP: Subjective: CC: Right hip infected bursa HPI: Mr. Pastor is an 84 yo male with PMH significant for DM2, HTN, HLD, PVD, AUDREY, COPD, CVA, CKD 2, chronic back pain and a chronic right hip ulcer; who presented to the hospital with cellulitis. Denies fever, chills, nausea, vomiting, or diarrhea. Objective: Vital Signs - 8 hr 09/01/19 09/01/19 09/01/19 03:22 08:00 08:06 Temperature 98.1 F 98.9 F Pulse Rate 86 84 Respiratory 17 20 16 Rate Blood Pressure 126/61 133/69 (mmHg) O2 Sat by Pulse 93 97 Oximetry Physical Exam: General: NAD, laying in bed Neurological: Alert and Oriented HEENT: Moist MM, no thrush Cardiovascular: Heart rate regular Respiratory: Lung sounds clear Abdominal: Bowel sounds present; ABD soft, large, and non tender MSK: Moves right hip, no pain with palpation Skin: No rash, Dressing to right hip clear dry and intact Laboratory Results - last 24 hr 08/31/19 09/01/19 09/01/19 21:08 05:18 05:18 WBC 8.5 RBC 3.52 L Hgb 10.3 L Hct 31 L MCV 88 MCH 29 MCHC 33 RDW 14 Plt Count 247 MPV 8.2 Neut % (Auto) 67.8 Lymph % (Auto) 20.1 Clark % (Auto) 5.7 Eos % (Auto) 5.7 Baso % (Auto) 0.7 Absolute Neuts (auto) 5.8 Absolute Lymphs (auto) 1.7 Absolute Monos (auto) 0.5 Absolute Eos (auto) 0.5 Absolute Basos (auto) 0.1 Absolute Nucleated RBC 0.0 Nucleated RBC % 0.0 Sodium 138 Potassium 3.9 Chloride 103 Carbon Dioxide 28 Anion Gap 7 BUN 34 H Creatinine 1.81 H Est GFR ( Amer) 43.6 Est GFR (Non-Af Amer) 36.1 BUN/Creatinine Ratio 18.8 Glucose 201 H POC Glucose (mg/dL) 272 H Hemoglobin A1c Calcium 8.8 Microbiology 08/30/19 17:56 Skin and Soft Tissue MRSA/MSSA (PCR - Final Hip Right Mrsa Negative S.aureus Negative Gram Stain - Final Wound Culture - Preliminary Gram Negative Bacilli Corynebacterium Striatum 08/28/19 14:42 Aerobic Blood Culture - Preliminary Blood Venous No Growth Day 3 Anaerobic Blood Culture - Preliminary No Growth Day 3 08/28/19 14:52 Aerobic Blood Culture - Preliminary Blood Venous No Growth Day 3 Anaerobic Blood Culture - Preliminary No Growth Day 3 08/30/19 17:56 Anaerobic Culture - Preliminary Wound 08/28/19 15:15 Skin and Soft Tissue MRSA/MSSA (PCR - Final Hip Right Mrsa Negative S.aureus Negative Gram Stain - Final Wound Culture - Final Proteus Mirabilis Strep Agalactiae - (Group B) Peptoniphilus Asaccharolyticus Assessment: 1. Right hip pressure ulcer with cellulitis. He underwent a right hip washout and was found to have an infected bursa, POD # 2. Afebrile and no leukocytosis. Cultures from admission with Proteus murbilis, Group B strep, and peptoniphilus asaccharolyticus. Blood cultures with no growth on day 3. Preliminary cultures from the OR with corynebacterium and gram negative bacilli. 2. PVD with bilateral LE chronic venous stasis changes. 3. CKD with VAZQUEZ. Plan: Continue Zosyn for now. Further recommendation will be based on the final culture results from the OR.
--- NOTE | 2019-09-01 15:17 | PN ---
Progress Note - Progress Note Date of Service: 09/01/19 SOAP: Subjective: []Pt seen at bedside. Feels well, no complaint of hip pain. Madyson feeling of fever, CP, SOB Objective: []Gen: NAD, appears well RLE: Dressing changed and incision is CDI, thigh is soft, DF/PF intact, DP2+, sensation intact to light touch distally. Calves supple and nontender without erythema, edema or palpable cord Assessment: POD 2 sp Right hip wound, open irrigation and debridement with infected trochanteric bursectomy. Plan: []WBAT PT.OT on zosyn, ID following for abx mgmt On heparin DVT prophy in house, rec lovenox at DC Microbiology 08/28/19 14:52 Aerobic Blood Culture - Preliminary Blood Venous No Growth Day 4 Anaerobic Blood Culture - Preliminary No Growth Day 4 08/28/19 14:42 Aerobic Blood Culture - Preliminary Blood Venous No Growth Day 4 Anaerobic Blood Culture - Preliminary No Growth Day 4 08/30/19 17:56 Anaerobic Culture - Preliminary Wound 08/30/19 17:56 Skin and Soft Tissue MRSA/MSSA (PCR - Final Hip Right Mrsa Negative S.aureus Negative Gram Stain - Final Wound Culture - Preliminary Proteus Mirabilis Corynebacterium Striatum Strep Agalactiae - (Group B) Vital Signs Temp 97.9 F 09/01/19 11:50 Pulse 84 09/01/19 11:50 Resp 16 09/01/19 11:50 BP 126/60 09/01/19 11:50 Pulse Ox 99 09/01/19 11:50 Intake & Output 08/31/19 09/01/19 09/01/19 18:59 06:59 18:59 Intake Total 360 600 480 Output Total 300 150 200 Balance 60 450 280 Weight 199 lb 3.2 oz Intake: IV Fluids 20 100 ABX - ZOSYN 100 NS (0.9%) 20 IVPB 100 100 ABX - ZOSYN 100 100 Oral 240 400 480 Output: Urine 300 150 200 Other: Estimated Void Medium # Bowel Movements 0 0 Estimated Stool Amount Medium Medium Laboratory Last Values WBC 8.5 10^3/uL (3.5-10.8) 09/01/19 05:18 RBC 3.52 10^6 /uL (4.18-5.48) L 09/01/19 05:18 Hgb 10.3 g/dL (14.0-18.0) L 09/01/19 05:18 Hct 31 % (42-52) L 09/01/19 05:18 MCV 88 fL (80-94) 09/01/19 05:18 MCH 29 pg (27-31) 09/01/19 05:18 MCHC 33 g/dL (31-36) 09/01/19 05:18 RDW 14 % (10-15) 09/01/19 05:18 Plt Count 247 10^3/uL (150-450) 09/01/19 05:18 MPV 8.2 fL (7.4-10.4) 09/01/19 05:18 Neut % (Auto) 67.8 % 09/01/19 05:18 Lymph % (Auto) 20.1 % 09/01/19 05:18 Duchesne % (Auto) 5.7 % 09/01/19 05:18 Eos % (Auto) 5.7 % 09/01/19 05:18 Baso % (Auto) 0.7 % 09/01/19 05:18 Absolute Neuts (auto) 5.8 10^3/ul (1.5-7.7) 09/01/19 05:18 Absolute Lymphs (auto) 1.7 10^3/ul (1.0-4.8) 09/01/19 05:18 Absolute Monos (auto) 0.5 10^3/ul (0-0.8) 09/01/19 05:18 Absolute Eos (auto) 0.5 10^3/ul (0-0.6) 09/01/19 05:18 Absolute Basos (auto) 0.1 10^3/ul (0-0.2) 09/01/19 05:18 Absolute Nucleated RBC 0.0 10^3/ul 09/01/19 05:18 Nucleated RBC % 0.0 09/01/19 05:18 ESR 90 mm/Hr (0-19) H 08/28/19 13:03 Sodium 138 mmol/L (135-145) 09/01/19 05:18 Potassium 3.9 mmol/L (3.5-5.0) 09/01/19 05:18 Chloride 103 mmol/L (101-111) 09/01/19 05:18 Carbon Dioxide 28 mmol/L (22-32) 09/01/19 05:18 Anion Gap 7 mmol/L (2-11) 09/01/19 05:18 BUN 34 mg/dL (6-24) H 09/01/19 05:18 Creatinine 1.81 mg/dL (0.67-1.17) H 09/01/19 05:18 Est GFR ( Amer) 43.6 (>60) 09/01/19 05:18 Est GFR (Non-Af Amer) 36.1 (>60) 09/01/19 05:18 BUN/Creatinine Ratio 18.8 (8-20) 09/01/19 05:18 Glucose 201 mg/dL (70-100) H 09/01/19 05:18 POC Glucose (mg/dL) 271 mg/dL (70-100) H 09/01/19 11:23 Hemoglobin A1c 9.1 % (4.0-5.6) H 08/31/19 05:17 Lactic Acid 1.4 mmol/L (0.5-2.0) 08/28/19 18:51 Calcium 8.8 mg/dL (8.6-10.3) 09/01/19 05:18 Magnesium 2.0 mg/dL (1.9-2.7) 08/28/19 13:03 Total Bilirubin 0.70 mg/dL (0.2-1.0) 08/28/19 13:03 AST 15 U/L (13-39) 08/28/19 13:03 ALT 13 U/L (7-52) 08/28/19 13:03 Alkaline Phosphatase 91 U/L (34-104) 08/28/19 13:03 C-Reactive Protein 58.11 mg/L (<8.01) H 08/28/19 13:03 Total Protein 7.1 g/dL (6.4-8.9) 08/28/19 13:03 Albumin 3.9 g/dL (3.2-5.2) 08/28/19 13:03 Globulin 3.2 g/dL (2-4) 08/28/19 13:03 Albumin/Globulin Ratio 1.2 (1-3) 08/28/19 13:03 Prealbumin 19 mg/dL (18-38) 08/28/19 17:25 TSH 4.71 mcIU/mL (0.34-5.60) 08/28/19 17:25 Vancomycin Trough 8.4 mcg/mL 08/30/19 05:19
--- NOTE | 2019-09-01 15:51 | PN ---
Subjective Date of Service: 09/01/19 Interval History: Patient c/o feeling tired today. He additionally had an episode of bowel incontinence with a sudden episode of loose stool. He did not have abd pain leading up to this and it "surprised" him. He denies abd pain, nausea, vomiting , fever/chills, difficulty breathing. Interested in taking a probiotic while he is on antibiotics. Denies hip pain. Past Medical History: Unchanged from Admission Objective Active Medications: Acetaminophen (Tylenol Tab*) 650 mg PO Q4H PRN PRN Reason: MILD PAIN or TEMP > 100.4 Last Admin: 09/01/19 05:42 Dose: 650 mg Albuterol (Ventolin 2.5 Mg/3 Ml Neb.Kinjal*) 2.5 mg INH [id number] AWAKE PRN PRN Reason: sob/wheezing Albuterol (Ventolin Hfa Inhaler*) 2 puff INH Q4H PRN PRN Reason: SHORTNESS OF BREATH Last Admin: 08/30/19 13:44 Dose: 2 puff Aspirin (Aspirin Ec Tab*) 81 mg PO DAILY [facility] Last Admin: 09/01/19 08:21 Dose: 81 mg Atorvastatin Calcium (Lipitor*) 20 mg PO BEDTIME [facility] Last Admin: 08/31/19 21:28 Dose: 20 mg Cyanocobalamin (Vitamin B12 Tab*) 1,000 mcg PO DAILY [facility] Last Admin: 09/01/19 08:20 Dose: 1,000 mcg Dextrose (Dextrose 50% Vial 50 Ml*) 25 ml IV PUSH .FOR FS < 60 - SS PRN PRN Reason: FS < 60 Ferrous Gluconate (Fergon Tab*) 324 mg PO BEDTIME [facility] Last Admin: 08/31/19 21:28 Dose: 324 mg Finasteride (Proscar Tab*) 5 mg PO DAILY [facility] Last Admin: 09/01/19 08:21 Dose: 5 mg Gabapentin (Neurontin Cap(*)) 100 mg PO QAM [facility] Last Admin: 09/01/19 08:21 Dose: 100 mg Gabapentin (Neurontin Cap(*)) 200 mg PO QPM [facility] Last Admin: 08/31/19 18:32 Dose: 200 mg Heparin Sodium (Porcine) (Heparin Vial(*)) 5,000 units SUBCUT Q8HR [facility] Last Admin: 09/01/19 13:48 Dose: 5,000 units Piperacillin Sod/Tazobactam (Sod 3.375 gm/ Sodium Chloride) 100 mls @ 25 mls/ hr IVPB Q8H [facility] Last Admin: 09/01/19 13:47 Dose: 25 mls/hr Insulin Glargine (Lantus(*)) 15 units SUBCUT BEDTIME [facility] Last Admin: 08/31/19 21:28 Dose: 15 units Insulin Human Lispro (Humalog*) 0 units SUBCUT AC [facility]; Protocol Last Admin: 09/01/19 11:46 Dose: 9 units Levothyroxine Sodium (Synthroid Tab*) 50 mcg PO DAILY@0600 [facility] Last Admin: 09/01/19 05:43 Dose: 50 mcg Lisinopril (Prinivil Tab*) 20 mg PO DAILY [facility] Last Admin: 09/01/19 08:20 Dose: 20 mg Multivitamins (Theragran Tab*) 1 tab PO QAM [facility] Last Admin: 09/01/19 08:21 Dose: 1 tab Nifedipine (Procardia Xl Tab*) 30 mg PO QAM [facility] Last Admin: 09/01/19 08:21 Dose: 30 mg Nystatin (Nystatin Top Powder*) 1 applic TOPICAL TID [facility] Last Admin: 09/01/19 13:49 Dose: Not Given Ondansetron HCl (Zofran Inj*) 4 mg IV Q6H PRN PRN Reason: NAUSEA/VOMITING Oxycodone/Acetaminophen (Percocet 5/325 Tab*) 1 tab PO Q6H PRN PRN Reason: PAIN - MODERATE Pantoprazole Sodium (Protonix Tab*) 40 mg PO DAILY [facility] Last Admin: 09/01/19 08:21 Dose: 40 mg Pharmacy Consult (Zosyn Per Pharmacy*) 1 note FOLLOW UP .ZOSYN PER PHARMACY [facility] Sucralfate (Carafate*) 1 gm PO QAM [facility] Last Admin: 09/01/19 08:21 Dose: 1 gm Tamsulosin HCl (Flomax Cap*) 0.4 mg PO DAILY [facility] Last Admin: 09/01/19 08:20 Dose: 0.4 mg Vital Signs - 8 hr 09/01/19 09/01/19 09/01/19 08:00 08:06 08:21 Temperature 98.9 F Pulse Rate 84 Respiratory 20 16 18 Rate Blood Pressure 133/69 (mmHg) O2 Sat by Pulse 97 Oximetry 09/01/19 09/01/19 09/01/19 11:12 11:50 15:32 Temperature 97.9 F 97.4 F Pulse Rate 84 70 Respiratory 18 16 14 Rate Blood Pressure 126/60 117/74 (mmHg) O2 Sat by Pulse 99 98 Oximetry Oxygen Devices in Use Now: None Appearance: Elderly white male, sitting in chair, appearing in NAD Eyes: No Scleral Icterus, - - PERRL Ears/Nose/Mouth/Throat: Mucous Membranes Moist Neck: NL Appearance and Movements; NL JVP Respiratory: Symmetrical Chest Expansion and Respiratory Effort, Clear to Auscultation Cardiovascular: NL Sounds; No Murmurs; No JVD, RRR Abdominal: NL Sounds; No Tenderness; No Distention Extremities: No Edema, No Clubbing, Cyanosis, - - no calf tenderness Skin: - - skin warm, dry, intact; right hip with new dressing Neurological: Alert and Oriented x 3 Result Diagrams: 09/01/19 05:18 09/01/19 05:18 Microbiology and Other Data: Microbiology 08/28/19 14:52 Aerobic Blood Culture - Preliminary Blood Venous No Growth Day 1 Anaerobic Blood Culture - Preliminary No Growth Day 1 08/28/19 14:42 Aerobic Blood Culture - Preliminary Blood Venous No Growth Day 1 Anaerobic Blood Culture - Preliminary No Growth Day 1 08/28/19 15:15 Skin and Soft Tissue MRSA/MSSA (PCR - Final Hip Right Mrsa Negative S.aureus Negative Gram Stain - Final Wound Culture - Preliminary [facility]: MRI HIP RIGHT 08/30/19 FINDINGS: There is a large soft tissue defect present along the lateral aspect of the right with surrounding soft tissue swelling. There is also edema within the right gluteal muscles. Just deep to the defect there is a fluid collection which appears to be in the trochanteric bursa measuring 4.1 by a 4.3 x 1.2 cm. No joint effusion is seen. No bone marrow edema is present. 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 There is likely a complete tear of the right gluteus medius tendon. The rectosigmoid colon is distended with stool. The visualized small bowel and colon otherwise are nondistended. No free intraperitoneal fluid is seen. IMPRESSION: THERE IS A SOFT TISSUE DEFECT IN THE SUBCUTANEOUS TISSUES ALONG THE LATERAL RIGHT THIGH. THERE IS SURROUNDING SOFT TISSUE SWELLING AND EDEMA WITHIN THE GLUTEAL MUSCLES SUGGESTIVE OF CELLULITIS AND MYOSITIS. THE SOFT TISSUE DEFECT EXTENDS TO THE LEVEL OF A COLLECTION LIKELY REPRESENTING THE TROCHANTERIC BURSA WHICH IS SUSPICIOUS FOR AN INFECTED COLLECTION. THERE IS NO EVIDENCE FOR OSTEOMYELITIS. Assess/Plan/Problems-Billing Assessment: 84 y/o male present to ED [facility] for right hip infections , found to have leukocytosis and low grade fever of 99.6 on admission seen by ortho and does require wash out and wound debridement - Patient Problems (1) Decubitus ulcer, hip, right, unstageable Current Visit: Yes Status: Acute Code(s): L89.210 - PRESSURE ULCER OF RIGHT HIP, UNSTAGEABLE SNOMED Code(s): 337075883 Comment: - failure to respond to outpatient local wound care. Presents this admission with fever and leukocytosis - surgical debridement 08/30/[address] Luis which also included trochanteric bursectomy, appreciate her consultation. MRI results as above, no osteomyelitis though concern for myositis. - Currently on zosyn, appreciate ID consult for further abx selection -afebrile. Patient has been without pain in hip since debridement (2) History of CVA (cerebrovascular accident) Current Visit: Yes Status: Acute Code(s): Z86.73 - PRSNL HX OF TIA (TIA), AND CEREB INFRC W/O RESID DEFICITS SNOMED Code(s): 152555295 Comment: - History of prior CVA with residual right sided weakness - Continue lipitor 20 mg HS and aspirin (3) Diabetes mellitus, type 2 Current Visit: No Status: Chronic Priority: High Comment: - A1C 8.8% at 01/2019 Baseline, pending repeat tomorrow - continue lantus to 15 U daily, continue SS lispro - changed lantus yesterday, will continue to monitor today (4) BPH (benign prostatic hyperplasia) Current Visit: No Status: Acute Code(s): N40.0 - BENIGN PROSTATIC HYPERPLASIA WITHOUT LOWER URINRY TRACT SYMP SNOMED Code(s): 705530186 Comment: - continue Tamsulosin 0.4mg daily and proscar 5 mg daily (5) COPD (chronic obstructive pulmonary disease) Current Visit: No Status: Acute Code(s): J44.9 - CHRONIC OBSTRUCTIVE PULMONARY DISEASE, UNSPECIFIED SNOMED Code(s): 39425117 Comment: - Hx of 40 yr smoking - continue Nebulizers (6) HTN (hypertension) Current Visit: No Status: Chronic Priority: Medium Code(s): I10 - ESSENTIAL (PRIMARY) HYPERTENSION SNOMED Code(s): 17853990 Comment: - normotensive overall today - nifedipine 30mg, will resume home lisinopril 20 mg but will keep HCTZ on hold considering he has been well controlled (7) Chronic bilateral low back pain Current Visit: No Status: Acute Code(s): M54.5 - LOW BACK PAIN; G89.29 - OTHER CHRONIC PAIN SNOMED Code(s): 973159524 Comment: - Home medications, Tylenol and Gabapentin continued (8) Esophagitis Current Visit: No Status: Acute Code(s): K20.9 - ESOPHAGITIS, UNSPECIFIED SNOMED Code(s): 86427141 Comment: - EGD revealed grade D severe esophagitis on 01/13 EGD - Continue Protonix 20 mg bid (9) Hypothyroidism Current Visit: No Status: Chronic Priority: Medium Code(s): E03.9 - HYPOTHYROIDISM, UNSPECIFIED SNOMED Code(s): 91082196 Comment: - Continue levothyroxine (10) CKD (chronic kidney disease) Current Visit: Yes Status: Acute Code(s): N18.9 - CHRONIC KIDNEY DISEASE, UNSPECIFIED SNOMED Code(s): 852845515 Comment: -at baseline (11) DVT prophylaxis Current Visit: No Status: Acute Code(s): BSQ8476 - SNOMED Code(s): 618283771 Comment: -HSQ (12) Full code status Current Visit: No Status: Acute Priority: High Code(s): Z78.9 - OTHER SPECIFIED HEALTH STATUS SNOMED Code(s): 854561887 Status and Disposition: Pending [facility] placement
[2019-09-01] MEDS: Lactobacillus Acidophilus* 1 TAB PO SCH (17:02)
[2019-09-01] MEDS: Atorvastatin* 20 MG TAB PO SCH (22:07)
[2019-09-01] MEDS: Ferrous Gluconate TAB* 324 MG TAB PO SCH (22:08)
[2019-09-01] MEDS: Insulin GLARGINE(*) 1 UNITS UNIT SUBCUT SCH (22:12)
[2019-09-02] MEDS: Acetaminophen TAB* 325 MG PO PRN (03:49)
[2019-09-02] MEDS: Levothyroxine TAB* 50 MCG TAB PO SCH (06:19)
[2019-09-02] MEDS: Heparin VIAL(*) 5000 UNITS/ML VIAL (FIVE THOUSAND) SUBCUT SCH ×2 (06:19→14:02)
[2019-09-02] MEDS: ZOSYN 3.375 GM Q8H per EXTENDED INFUSION IVPB SCH ×4 (06:19→14:00)
[2019-09-02] MEDS: Gabapentin CAP(*) 100 MG PO SCH (09:16)
[2019-09-02] MEDS: Cyanocobalamin TAB* 500 MCG PO SCH (09:16)
[2019-09-02] MEDS: Pantoprazole TAB * 40 MG TAB PO SCH (09:16)
[2019-09-02] MEDS: Sucralfate TAB* 1 GM PO SCH (09:17)
[2019-09-02] MEDS: Aspirin EC TAB* 81 MG TAB.EC PO SCH (09:17)
[2019-09-02] MEDS: NIFEdipine ER TAB* 30 MG PO SCH (09:17)
[2019-09-02] MEDS: Tamsulosin CAP* 0.4 MG PO SCH (09:17)
[2019-09-02] MEDS: Lisinopril TAB* 10 MG PO SCH (09:17)
[2019-09-02] MEDS: Lactobacillus Acidophilus* 1 TAB PO SCH (09:17)
[2019-09-02] MEDS: Vitamin THERAPEUTIC TAB PO SCH (09:17)
[2019-09-02] MEDS: Finasteride TAB* 5 MG PO SCH (09:17)
[2019-09-02] MEDS: Nystatin TOP POWDER* 15 GM BTL TOPICAL SCH ×2 (09:19→13:53)
[2019-09-02] MEDS: Insulin LISPRO* 1 UNITS UNIT SUBCUT SCH ×2 (09:19→12:56)
--- NOTE | 2019-09-02 11:00 | PN ---
Progress Note - Progress Note Date of Service: 09/02/19 SOAP: Subjective: []Pt seen at bedside. He feels well without complaints. Denies fever, chills, CP , SOB. Right hip is not painful. Objective: []Gen: NAD, appears well RLE: Dressing changed and incision is CDI without discharge or erythema, thigh is soft, DF/PF intact, DP2+, sensation intact to light touch distally. Calves supple and nontender without erythema, edema or palpable cord Assessment: POD 3 sp Right hip wound, open irrigation and debridement with infected trochanteric bursectomy. Plan: []WBAT PT.OT on zosyn, ID following for abx mgmt On heparin DVT prophy in house, rec lovenox at DC daily dry sterile dressing change Ready for DC from ortho standpoint. follow up with Dr Luis 2 weeks post op Vital Signs Temp 98.6 F 09/02/19 09:15 Pulse 60 09/02/19 08:54 Resp 18 09/02/19 09:16 BP 137/71 09/02/19 09:15 Pulse Ox 97 09/02/19 09:15 Intake & Output 09/01/19 09/02/19 09/02/19 18:59 06:59 18:59 Intake Total 480 785 Output Total 200 0 Balance 280 785 0 Weight 201 lb 9.6 oz Intake: IV Fluids 185 ABX - ZOSYN 105 NS (0.9%) 80 Oral 480 600 Output: Urine 200 0 Other: Estimated Void Large Medium # Bowel Movements 0 1 0 Estimated Stool Amount Medium Medium Medium # Voids 1 1 Laboratory Last Values WBC 8.5 10^3/uL (3.5-10.8) 09/01/19 05:18 RBC 3.52 10^6 /uL (4.18-5.48) L 09/01/19 05:18 Hgb 10.3 g/dL (14.0-18.0) L 09/01/19 05:18 Hct 31 % (42-52) L 09/01/19 05:18 MCV 88 fL (80-94) 09/01/19 05:18 MCH 29 pg (27-31) 09/01/19 05:18 MCHC 33 g/dL (31-36) 09/01/19 05:18 RDW 14 % (10-15) 09/01/19 05:18 Plt Count 247 10^3/uL (150-450) 09/01/19 05:18 MPV 8.2 fL (7.4-10.4) 09/01/19 05:18 Neut % (Auto) 67.8 % 09/01/19 05:18 Lymph % (Auto) 20.1 % 09/01/19 05:18 Childress % (Auto) 5.7 % 09/01/19 05:18 Eos % (Auto) 5.7 % 09/01/19 05:18 Baso % (Auto) 0.7 % 09/01/19 05:18 Absolute Neuts (auto) 5.8 10^3/ul (1.5-7.7) 09/01/19 05:18 Absolute Lymphs (auto) 1.7 10^3/ul (1.0-4.8) 09/01/19 05:18 Absolute Monos (auto) 0.5 10^3/ul (0-0.8) 09/01/19 05:18 Absolute Eos (auto) 0.5 10^3/ul (0-0.6) 09/01/19 05:18 Absolute Basos (auto) 0.1 10^3/ul (0-0.2) 09/01/19 05:18 Absolute Nucleated RBC 0.0 10^3/ul 09/01/19 05:18 Nucleated RBC % 0.0 09/01/19 05:18 ESR 90 mm/Hr (0-19) H 08/28/19 13:03 Sodium 138 mmol/L (135-145) 09/01/19 05:18 Potassium 3.9 mmol/L (3.5-5.0) 09/01/19 05:18 Chloride 103 mmol/L (101-111) 09/01/19 05:18 Carbon Dioxide 28 mmol/L (22-32) 09/01/19 05:18 Anion Gap 7 mmol/L (2-11) 09/01/19 05:18 BUN 34 mg/dL (6-24) H 09/01/19 05:18 Creatinine 1.81 mg/dL (0.67-1.17) H 09/01/19 05:18 Est GFR ( Amer) 43.6 (>60) 09/01/19 05:18 Est GFR (Non-Af Amer) 36.1 (>60) 09/01/19 05:18 BUN/Creatinine Ratio 18.8 (8-20) 09/01/19 05:18 Glucose 201 mg/dL (70-100) H 09/01/19 05:18 POC Glucose (mg/dL) 260 mg/dL (70-100) H 09/01/19 21:26 Hemoglobin A1c 9.1 % (4.0-5.6) H 08/31/19 05:17 Lactic Acid 1.4 mmol/L (0.5-2.0) 08/28/19 18:51 Calcium 8.8 mg/dL (8.6-10.3) 09/01/19 05:18 Magnesium 2.0 mg/dL (1.9-2.7) 08/28/19 13:03 Total Bilirubin 0.70 mg/dL (0.2-1.0) 08/28/19 13:03 AST 15 U/L (13-39) 08/28/19 13:03 ALT 13 U/L (7-52) 08/28/19 13:03 Alkaline Phosphatase 91 U/L (34-104) 08/28/19 13:03 C-Reactive Protein 58.11 mg/L (<8.01) H 08/28/19 13:03 Total Protein 7.1 g/dL (6.4-8.9) 08/28/19 13:03 Albumin 3.9 g/dL (3.2-5.2) 08/28/19 13:03 Globulin 3.2 g/dL (2-4) 08/28/19 13:03 Albumin/Globulin Ratio 1.2 (1-3) 08/28/19 13:03 Prealbumin 19 mg/dL (18-38) 08/28/19 17:25 TSH 4.71 mcIU/mL (0.34-5.60) 08/28/19 17:25 Vancomycin Trough 8.4 mcg/mL 08/30/19 05:19
[2019-09-02 11:19] VITALS: BP 145/67
--- NOTE | 2019-09-02 13:11 | DS ---
CC: Angela Zapata NP * DATE OF ADMISSION: 08/28/2019. DATE OF DISCHARGE: 09/02/2019. ATTENDING PHYSICIAN WHILE IN THE HOSPITAL: Dr. Ivet Soto * (dictated by ROE Haynes). PRIMARY CARE PROVIDER: Angela Zapata NP from the [place]. CONSULTING INFECTIOUS DISEASE SPECIALIST WHILE IN THE HOSPITAL: Dr. Amrit Serrato. CONSULTING ORTHOPEDIST: Dr. Angeli Luis. PRIMARY DIAGNOSIS: Stage 4 decubitus ulcer of the right hip with infected trochanteric bursa, now status post right trochanteric bursectomy. SECONDARY DIAGNOSES: 1. Type 2 diabetes mellitus, insulin dependent with associated diabetic neuropathy. 2. Hypertension. 3. Hyperlipidemia. 4. Hypothyroidism. 5. Peripheral arterial disease. 6. Iron deficiency anemia. 7. COPD. 8. BPH. 9. GERD. 10. History of current UTI. 11. History of CVA with residual right-sided weakness, bed bound at home. 12. CKD. 13. Chronic low back pain with sciatica. PROCEDURES WHILE IN THE HOSPITAL: Right hip wound I & D with infected trochanteric bursectomy performed on 08/30/[address] Angeli Luis. STUDIES WHILE IN THE HOSPITAL: 1. Hip MRI on 08/30/2019: Impression: There is a soft tissue defect in the subcutaneous tissues along the lateral right thigh. There is surrounding soft tissue swelling and edema within the gluteal muscle suggestive of cellulitis and myositis. The soft tissue defect extends to the level of collection likely representing the trochanteric bursa which is suspicious for an infected collection. There is no evidence for osteomyelitis. 2. Hip/pelvis x-ray on 08/30/2019: Soft tissue swelling and defect, no specific evidence for osteomyelitis. If there is a high clinical index of suspicion for osteomyelitis, consider an MRI study without contrast or a three- phase bone scan. HISTORY OF PRESENT ILLNESS/HOSPITAL COURSE: Danny Pastor Sr is an 84- year- old white male with a past medical history significant for a history of prior stroke with residual right-sided weakness resulting in his being bedbound. Peripheral arterial disease, diabetes mellitus with neuropathy who presented to the emergency department on 08/28/2019 with right hip pain at the site of his chronic pressure ulcer. The ulcer has been ongoing for a year total and was undergoing wound care. For further details, please see the history and physical written by Majo Aguirre NP. The patient was seen in consultation by the Orthopedic team who planned for wound I and D. Based on the MRI as described above, the concern for trochanteric bursitis arose and bursectomy was performed by Dr. Luis. During the patient's hospital stay, he was receiving IV Zosyn until his wound cultures and intraoperative cultures could reveal sensitivities. Dr. Serrato was following along during this case and ultimately made recommendations for long-term antibiotics which will be further discussed in the discharge plan. The patient did not present with signs of sepsis. He was afebrile during the entirety of his hospital stay. He did initially have leukocytosis which resolved once antibiotics were started. After his procedure with Dr. Luis, his right hip pain resolved and he was progressing quite well after surgery. Orthopedics feels he is safe to be discharged. The patient does have CKD and his kidney function is fluctuating during his hospital stay, though not to the point of acute kidney injury. His blood sugars were difficult to control; however, considering his home insulin dose was not used as he was eating less due to pain and postoperative hip during his hospital stay. On the date of discharge, the patient has no complaints and is feeling well. PHYSICAL EXAMINATION: General: Elderly white male appearing in no acute distress. Appears stated age. Eyes: PERRL. Sclerae anicteric. ENT: Mucous membranes moist. Lungs: Clear to auscultation throughout. Cardio: Regular rate and rhythm without murmurs, rubs, or gallops. Abdomen: Soft, nontender, nondistended. Extremities: Bandaged right hip was clean. No clubbing, cyanosis , or edema. Neuro: Diminished strength in the right lower extremity which is chronic. The patient is alert and oriented to self and location. DISCHARGE PLAN: The patient should follow-up with Dr. Serrato after his discharge from [facility]. He is going to [facility] for subacute rehab. He should additionally follow-up with his primary care provider within one week after discharge from [facility]. He will need to continue to have dressing changes with daily dry sterile dressing changes. He should follow-up with Dr. Luis in two weeks. If [facility] could please facilitate this follow-up that would be of great benefit to the patient. Additionally, the Orthopedic team recommends Lovenox at discharge and at this follow-up time, Dr. Luis should recommend the length of this Lovenox for DVT prophylaxis after outpatient follow up. MEDICATIONS: Continued home medications: 1. Trulicity 0.75 mg subcu weekly. 2. Flomax 0.4 mg p.o. daily. 3. Carafate 1 mg p.o. q.a.m. 4. Pantoprazole 20 mg p.o. b.i.d. 5. Nifedipine 30 mg p.o. q.a.m. 6. Multivitamin one tab p.o. q.a.m. 7. Synthroid 50 mcg p.o. daily. 8. Gabapentin 100 mg p.o. q.a.m. 9. Gabapentin 200 mg p.o. q.p.m. 10. Lasix 40 mg p.o. q.a.m. prn lower extremity edema. 11. Proscar 5 mg p.o. daily. 12. Ferrous Gluconate 325 mg p.o. daily. 13. Vitamin B12 1,000 mcg p.o. daily. 14. Lipitor 40 mg p.o. daily. 15. Albuterol inhaler two puffs inhaled q.4 hours prn shortness of breath or wheezing. 16. Acetaminophen 650 mg p.o. q.6 hours prn pain. 17. Senna/Docusate one tab p.o. daily prn constipation. 18. Ibuprofen 200 to 400 mg p.o. q.6 hours prn pain. New medications: 1. Augmentin 500 mg p.o. b.i.d. times one month. 2. Aspirin 81 mg p.o. daily. 3. Lovenox 40 mg subcu daily. 4. Insulin Glargine 20 units subcu q.a.m. 5. Insulin Lispro subcu a.c. per sliding scale. 6. Lactobacillus Acidophilus one tab p.o. daily. 7. Lisinopril 20 mg p.o. daily. DIET: Carbohydrate consistent diet. ACTIVITY: The patient may return to regular activity as tolerated. No restrictions. He may bear weight to his right lower extremity as tolerated. The patient should return to the hospital if he is experiencing a fever or chills, purulent drainage from wound, streaking on his extremity from the wound , chest pain, difficulty breathing, or other concerning symptoms. If the provider at [facility] could please adjust the patient's insulin during his hospital stay, that would be of great benefit as it has been changed from his normal home dose and would likely need titration. CONDITION ON DISCHARGE: Stable. DISPOSITION: To [facility] for subacute rehab. TIME SPENT: Approximately 40 minutes were spent on this discharge, approximately half this time was spent at bedside evaluating the patient and discussing the plan of care. ROE HAYNES [id number]/CPS #: [id number]
== END 2019-09-02 15:02 | DRG 500 ==
LOC: ED 11:41 → SSU 17:19
PROVIDERS: ADMIT Internal Medicine; ATTEND Internal Medicine
PROC: 0MBL0ZZ Excision of Right Hip Bursa and Ligament, Open Approach (ICD-10-PCS; principal; 2019-08-30 16:30)
DX: M71.151 Other infective bursitis, right hip (principal); L89.214 Pressure ulcer of right hip, stage 4; N17.9 Acute kidney failure, unspecified; E11.51 Type 2 diabetes mellitus with diabetic peripheral angiopathy without gangrene; E78.5 Hyperlipidemia, unspecified; N40.0 Benign prostatic hyperplasia without lower urinary tract symptoms; E03.9 Hypothyroidism, unspecified; J44.9 Chronic obstructive pulmonary disease, unspecified; G89.29 Other chronic pain; M54.30 Sciatica, unspecified side; E11.22 Type 2 diabetes mellitus with diabetic chronic kidney disease; I12.9 Hypertensive chronic kidney disease with stage 1 through stage 4 chronic kidney disease, or unspecified chronic kidney disease; N18.2 Chronic kidney disease, stage 2 (mild); D64.9 Anemia, unspecified; K21.0 Gastro-esophageal reflux disease with esophagitis; I69.354 Hemiplegia and hemiparesis following cerebral infarction affecting left non-dominant side; Z87.440 Personal history of urinary (tract) infections; Z74.01 Bed confinement status; Z88.1 Allergy status to other antibiotic agents; Z87.891 Personal history of nicotine dependence; Z79.899 Other long term (current) drug therapy
CPT/HCPCS: 36415; 80048; 80053; 80202; 82565; 83036; 83605; 83735; 84134; 84443; 84520; 85025; 85027; 85652; 86140; 87040; 87070; 87073; 87076; 87077; 87102; 87184; 87186; 87205; 87640; 87641; 93005; 99283; A9270-GY; G8978-GP-CL; G8979-GP-CI; G8987-GO-CL; G8988-GO-CJ; J0780; J1100; J1644; J2250; J2405; J2543; J2704; J2710; J2795; J3010; J3370

== ENCOUNTER 2021-08-01 11:46 | Inpatient (IN) ==
[2021-08-01 12:22] LABS: ABS Basophils 0.1 10^3/ul (0-0.2); ABS Eosinophils 0.4 10^3/ul (0-0.6); ABS Lymphocytes 1.1 10^3/ul (1.0-4.8); ABS Monocytes 0.5 10^3/ul (0-0.8); ABS Neutrophils 7.8 10^3/ul (1.5-7.7); Eosinophil % 3.6 %; Hematocrit 28 % (42-52); Hemoglobin 9.1 g/dL (14.0-18.0); Mean Corpuscular HGB Conc 32 g/dL (31-36); Mean Corpuscular Hemoglobin 27 pg (27-31); Mean Corpuscular Volume 84 fL (80-94); Platelet Count 311 10^3/uL (150-450); Red Blood Count 3.39 10^6 /uL (4.18-5.48); Red Cell Distribution Width 15 % (10-15); White Blood Count 9.8 10^3/uL (3.5-10.8)
[2021-08-01 12:31] LABS: Activated Partial Thrombo Time 39.4 seconds (26.0-38.0); INR 1.44 (0.86-1.15)
[2021-08-01 12:41] LABS: ALT 16 U/L (7-52); AST 18 U/L (13-39); Albumin 3.4 g/dL (3.2-5.2); Albumin/Globulin Ratio 0.9 (1-3); Alkaline Phosphatase 81 U/L (35-149); Anion Gap 7 mmol/L (2-11); Blood Urea Nitrogen 49 mg/dL (6-24); CO2 Carbon Dioxide 25 mmol/L (22-32); Calcium 9.3 mg/dL (8.6-10.3); Chloride 105 mmol/L (101-111); EGFR African American 42.1 (>60); EGFR Non-African American 34.8 (>60); Globulin 3.8 g/dL (2-4); Glucose 87 mg/dL (70-100); Potassium 4.6 mmol/L (3.5-5.0); Sodium 137 mmol/L (135-145); Total Protein 7.2 g/dL (6.4-8.9)
[2021-08-01 12:46] LABS: Troponin I 0.04 ng/mL (<0.03)
[2021-08-01] MEDS ORDERED: Bacitracin OINTMENT TUBE TOPICAL ONE (13:48)
[2021-08-01 16:10] LABS: Troponin I 0.06 ng/mL (<0.03)
[2021-08-01] MEDS ORDERED: Piperacillin/Tazobac ADVAN 3.375 GM in NS 0.9% 100 ml BAG 100 ML IV ONE (16:25)
[2021-08-01 17:39] LABS: Rapid COVID-19 Molecular Undetected (Undetected)
[2021-08-01] MEDS ORDERED: Albuterol HFA INHALER 8 gm MDI INH PRN (18:59)
[2021-08-01] MEDS ORDERED: Vancomycin 1,000 MG in NS 0.9% 250 ml 250 ML IVPB ONE (19:14)
[2021-08-01] MEDS ORDERED: Dextrose 50% Syringe 50 ml 25 GM/50 ML SYRINGE IV PUSH PRN (19:17)
[2021-08-01] MEDS ORDERED: metroNIDAZOLE IV 500 MG/100ML - ED ONCE IVPB ONE (20:00)
[2021-08-01] MEDS ORDERED: Vancomycin 1500 MG IV - x ONCE IVPB ONE (20:00)
[2021-08-01] MEDS ORDERED: Vancomycin per Pharmacy 1 EA NOTE FOLLOW UP SCH (20:00)
[2021-08-01] MEDS ORDERED: AZTREONAM 2 GM x ONCE IVPB ONE (21:00)
[2021-08-01] MEDS ORDERED: Aztreonam 2 GM in NS 0.9% 100 ml BAG 100 ML IV SCH (22:30)
[2021-08-02] MEDS: metroNIDAZOLE IV 500 MG/100ML 500 MG/100 ML BAG IVPB SCH ×3 (00:21→23:53)
[2021-08-02 05:53] LABS: Troponin I 0.16 ng/mL (<0.03)
[2021-08-02] MEDS ORDERED: Aztreonam 2 GM in NS 0.9% 100 ml BAG 100 ML IV SCH ×2 (06:00→07:30)
[2021-08-02 07:46] LABS: Troponin I 0.16 ng/mL (<0.03)
[2021-08-02] MEDS ORDERED: metroNIDAZOLE IV 500 MG/100ML 500 MG/100 ML BAG IVPB SCH (09:00)
[2021-08-02] MEDS: Insulin GLARGINE 100 un/ml 10 ml VIAL SUBCUT SCH (09:56)
[2021-08-02 10:27] LABS: Troponin I 0.14 ng/mL (<0.03)
[2021-08-02] MEDS: Vancomycin 1000 MG in NS 0.9% 250 ML IVPB SCH (10:29)
[2021-08-02 11:48] LABS: Troponin I 0.13 ng/mL (<0.03)
[2021-08-02] MEDS ORDERED: Perflutren Lipid Microsphere 3 ML VIAL ONE (12:00)
[2021-08-02 13:27] LABS: Troponin I 0.12 ng/mL (<0.03)
[2021-08-02] MEDS: Collagenase 250 units/gm OINT 1 tube TOPICAL SCH (14:23)
[2021-08-02] MEDS: Albuterol HFA INHALER 8 gm MDI INH PRN (16:27)
[2021-08-02] MEDS: Aztreonam 2 GM in NS 0.9% 100 ml BAG 100 ML IV SCH (20:50)
[2021-08-03] MEDS: Albuterol HFA INHALER 8 gm MDI INH PRN ×4 (02:31→22:45)
[2021-08-03 06:08] LABS: ABS Basophils 0.1 10^3/ul (0-0.2); ABS Eosinophils 0.2 10^3/ul (0-0.6); ABS Lymphocytes 0.6 10^3/ul (1.0-4.8); ABS Monocytes 0.6 10^3/ul (0-0.8); ABS Neutrophils 8.6 10^3/ul (1.5-7.7); Eosinophil % 2.4 %; Hematocrit 26 % (42-52); Hemoglobin 8.7 g/dL (14.0-18.0); Lymphocyte % 6.3 %; Mean Corpuscular HGB Conc 33 g/dL (31-36); Mean Corpuscular Hemoglobin 27 pg (27-31); Mean Corpuscular Volume 82 fL (80-94); Mean Platelet Volume 7.3 fL (7.4-10.4); Platelet Count 321 10^3/uL (150-450); Red Blood Count 3.16 10^6 /uL (4.18-5.48); Red Cell Distribution Width 15 % (10-15); White Blood Count 10.1 10^3/uL (3.5-10.8)
[2021-08-03 06:19] LABS: ALT 17 U/L (7-52); AST 15 U/L (13-39); Albumin/Globulin Ratio 0.8 (1-3); Alkaline Phosphatase 77 U/L (35-149); Anion Gap 9 mmol/L (2-11); Blood Urea Nitrogen 39 mg/dL (6-24); C Reactive Protein 145.23 mg/L (<8.01); CO2 Carbon Dioxide 23 mmol/L (22-32); Chloride 108 mmol/L (101-111); EGFR African American 50.8 (>60); Globulin 3.6 g/dL (2-4); Glucose 141 mg/dL (70-100); Potassium 4.8 mmol/L (3.5-5.0); Sodium 140 mmol/L (135-145); Total Protein 6.6 g/dL (6.4-8.9)
[2021-08-03] MEDS: Aztreonam 2 GM in NS 0.9% 100 ml BAG 100 ML IV SCH ×2 (08:13→21:22)
[2021-08-03] MEDS: Vancomycin 1000 MG in NS 0.9% 250 ML IVPB SCH (09:36)
[2021-08-03] MEDS ORDERED: Propofol 10 MG/ML 20 ML BTL ONE (10:01)
[2021-08-03] MEDS ORDERED: fentaNYL 100 mcg/2 ml 50 MCG/ML VIAL ONE (10:01)
[2021-08-03] MEDS ORDERED: Lidocaine 2% PF 5 ML VIAL ONE (10:02)
[2021-08-03] MEDS ORDERED: Rocuronium 50 mg VIAL 10 mg/ml 5 ml VIAL (50 mg) ONE (10:02)
[2021-08-03] MEDS ORDERED: Ondansetron 4 mg VIAL 2 MG/ML 2 ml VIAL ONE (10:02)
[2021-08-03] MEDS ORDERED: Phenylephrine 40 mcg/mL 10mL (400mcg) SYRINGE ONE (10:02)
[2021-08-03] MEDS ORDERED: Sterile Water for Inj 0 ML ONE (10:03)
[2021-08-03] MEDS ORDERED: EPHEDrine (Pressors) 50 MG/ML VIAL ONE (10:03)
[2021-08-03] MEDS ORDERED: Phenylephrine IV 10 MG/ML 1 ml VIAL ONE (10:03)
[2021-08-03] MEDS ORDERED: Lidocaine 1% VIAL 10 MG/ML VIAL ONE (10:20)
[2021-08-03] MEDS ORDERED: Iodixanol 320 (CONTRAST) 100 ML SDV ONE (10:21)
[2021-08-03] MEDS ORDERED: Heparin 2 UNITS/ML IVPREMIX 3,000 UNIT/1,500 ML BAG IV ONE (10:21)
[2021-08-03] MEDS ORDERED: Metoprolol Tartrate 5 mg VIAL 5 ml VIAL (1 mg/ml) ONE ×3 (12:31→12:50)
[2021-08-03] MEDS ORDERED: Esmolol 10 MG/ML 10 ML (100 mg) ONE (13:01)
[2021-08-03] MEDS ORDERED: Diltiazem IV push/loading dose 5 MG/ML 5 ML vial (25 mg) ONE (13:02)
[2021-08-03 13:35] LABS: Magnesium 1.5 mg/dL (1.9-2.7)
[2021-08-03] MEDS: Collagenase 250 units/gm OINT 1 tube TOPICAL SCH (17:13)
[2021-08-03] MEDS: metroNIDAZOLE IV 500 MG/100ML 500 MG/100 ML BAG IVPB SCH ×2 (17:14→23:59)
[2021-08-03] MEDS: Insulin GLARGINE 100 un/ml 10 ml VIAL SUBCUT SCH ×2 (17:25→21:39)
[2021-08-03] MEDS ORDERED: Digoxin IV 0.5 MG/2 ML AMP (0.25 MG/ML) IV SLOW PU ONE (18:40)
[2021-08-03] MEDS: Magnesium Sulfate 2 gm BAG 2 GM/50 ML BAG IVPB SCH ×2 (21:20→23:58)
[2021-08-03 22:24] LABS: % Iron Saturation 12 % (15-55); Iron 21 ug/dL (50-212); Total Iron Binding Capacity 169 mcg/dL (250-450); Transferrin 121 mg/dL (203-362); Unsaturated Iron Binding < 154 ug/dL
[2021-08-03 22:44] LABS: Ferritin 300.2 ng/mL (24-336)
[2021-08-04] MEDS ORDERED: Magnesium Sulfate 2 gm BAG 2 GM/50 ML BAG IVPB SCH (01:00)
[2021-08-04 06:27] LABS: ABS Eosinophils 0.1 10^3/ul (0-0.6); ABS Lymphocytes 0.9 10^3/ul (1.0-4.8); ABS Monocytes 0.6 10^3/ul (0-0.8); ABS Neutrophils 8.6 10^3/ul (1.5-7.7); Eosinophil % 0.8 %; Hematocrit 24 % (42-52); Hemoglobin 7.9 g/dL (14.0-18.0); Lymphocyte % 8.9 %; Mean Corpuscular HGB Conc 33 g/dL (31-36); Mean Corpuscular Hemoglobin 27 pg (27-31); Mean Corpuscular Volume 84 fL (80-94); Mean Platelet Volume 7.1 fL (7.4-10.4); Platelet Count 314 10^3/uL (150-450); Red Blood Count 2.88 10^6 /uL (4.18-5.48); Red Cell Distribution Width 15 % (10-15); White Blood Count 10.3 10^3/uL (3.5-10.8)
[2021-08-04 06:44] LABS: Blood Urea Nitrogen 47 mg/dL (6-24); CO2 Carbon Dioxide 23 mmol/L (22-32); Calcium 8.6 mg/dL (8.6-10.3); Chloride 106 mmol/L (101-111); EGFR African American 45.2 (>60); EGFR Non-African American 37.3 (>60); Glucose 145 mg/dL (70-100); Magnesium 2.7 mg/dL (1.9-2.7); Sodium 136 mmol/L (135-145)
[2021-08-04 06:45] LABS: Anion Gap 7 mmol/L (2-11); Potassium 5.3 mmol/L (3.5-5.0)
[2021-08-04 06:47] LABS: Troponin I 0.19 ng/mL (<0.03)
[2021-08-04 07:15] LABS: TSH Ultra Thyroid Stim Horm 2.94 mcIU/mL (0.34-5.60)
[2021-08-04] MEDS ORDERED: Vancomycin Trough Check NOTE FOLLOW UP ONE (08:30)
[2021-08-04] MEDS: Aztreonam 2 GM in NS 0.9% 100 ml BAG 100 ML IV SCH ×2 (08:54→21:26)
[2021-08-04 09:33] LABS: EGFR Non-African American 36.4 (>60)
[2021-08-04 09:55] LABS: Troponin I 0.15 ng/mL (<0.03)
[2021-08-04 10:01] LABS: Vancomycin Trough 13.4 mcg/mL
[2021-08-04] MEDS: Albuterol HFA INHALER 8 gm MDI INH PRN ×2 (10:50→16:11)
[2021-08-04 11:08] LABS: Digoxin 0.7 ng/ml (0.8-2.0)
[2021-08-04] MEDS: Vancomycin 1000 MG in NS 0.9% 250 ML IVPB SCH (12:25)
[2021-08-04] MEDS ORDERED: Albuterol/Ipratropium NEB.SOL (2.5/0.5 MG) 3 ML NEB.SOLN INH SCH (13:00)
[2021-08-04] MEDS: metroNIDAZOLE IV 500 MG/100ML 500 MG/100 ML BAG IVPB SCH ×2 (16:24→23:23)
[2021-08-04] MEDS: Albuterol HFA INHALER 8 gm MDI INH SCH (20:29)
[2021-08-04] MEDS: Collagenase 250 units/gm OINT 1 tube TOPICAL SCH (21:26)
[2021-08-04] MEDS: Insulin GLARGINE 100 un/ml 10 ml VIAL SUBCUT SCH (22:12)
[2021-08-05] MEDS: Albuterol HFA INHALER 8 gm MDI INH SCH ×4 (01:41→19:42)
[2021-08-05] MEDS: Vancomycin 1000 MG in NS 0.9% 250 ML IVPB SCH (09:03)
[2021-08-05 10:04] LABS: Hematocrit 25 % (42-52); Hemoglobin 8.2 g/dL (14.0-18.0); Mean Corpuscular HGB Conc 33 g/dL (31-36); Mean Corpuscular Hemoglobin 27 pg (27-31); Mean Corpuscular Volume 83 fL (80-94); Mean Platelet Volume 7.7 fL (7.4-10.4); Platelet Count 341 10^3/uL (150-450); Red Cell Distribution Width 16 % (10-15); White Blood Count 9.1 10^3/uL (3.5-10.8)
[2021-08-05 10:11] LABS: ABS Basophils 0.1 10^3/ul (0-0.2); ABS Eosinophils 0.6 10^3/ul (0-0.6); ABS Lymphocytes 0.7 10^3/ul (1.0-4.8); ABS Monocytes 0.5 10^3/ul (0-0.8); ABS Neutrophils 7.1 10^3/ul (1.5-7.7); Lymphocyte % 8.2 %; Nucleated Red Blood Cells % 0.1
[2021-08-05 10:25] LABS: Calcium 8.4 mg/dL (8.6-10.3); EGFR African American 36.8 (>60); EGFR Non-African American 30.4 (>60); Potassium 4.8 mmol/L (3.5-5.0)
[2021-08-05 10:34] LABS: RBC Morphology Normal (Normal)
[2021-08-05] MEDS: Aztreonam 2 GM in NS 0.9% 100 ml BAG 100 ML IV SCH ×2 (11:54→21:58)
[2021-08-05] MEDS: metroNIDAZOLE IV 500 MG/100ML 500 MG/100 ML BAG IVPB SCH ×2 (14:18→23:57)
[2021-08-05] MEDS: Collagenase 250 units/gm OINT 1 tube TOPICAL SCH (14:48)
[2021-08-05] MEDS: Insulin GLARGINE 100 un/ml 10 ml VIAL SUBCUT SCH (21:58)
[2021-08-06] MEDS: Albuterol HFA INHALER 8 gm MDI INH SCH ×3 (01:54→12:36)
[2021-08-06 05:51] LABS: EGFR African American 63.1 (>60); EGFR Non-African American 52.1 (>60)
[2021-08-06 10:02] LABS: Rapid COVID-19 Molecular Undetected (Undetected)
[2021-08-06] MEDS: Aztreonam 2 GM in NS 0.9% 100 ml BAG 100 ML IV SCH ×2 (10:11→20:39)
[2021-08-06] MEDS: Collagenase 250 units/gm OINT 1 tube TOPICAL SCH (10:27)
[2021-08-06] MEDS: Vancomycin 1000 MG in NS 0.9% 250 ML IVPB SCH (12:54)
[2021-08-06] MEDS ORDERED: Albuterol HFA INHALER 8 gm MDI INH PRN (15:45)
[2021-08-06] MEDS: metroNIDAZOLE IV 500 MG/100ML 500 MG/100 ML BAG IVPB SCH ×2 (16:05→23:09)
[2021-08-06] MEDS: Insulin GLARGINE 100 un/ml 10 ml VIAL SUBCUT SCH (20:39)
[2021-08-07] MEDS ORDERED: Vancomycin Trough Check NOTE FOLLOW UP ONE (09:00)
[2021-08-07 09:12] LABS: Vancomycin Trough 16.4 mcg/mL
[2021-08-07] MEDS: Aztreonam 2 GM in NS 0.9% 100 ml BAG 100 ML IV SCH ×2 (09:24→20:06)
[2021-08-07] MEDS: Collagenase 250 units/gm OINT 1 tube TOPICAL SCH (10:58)
[2021-08-07] MEDS ORDERED: Furosemide 40 mg/4 ml IV VIAL IV ONE (11:16)
[2021-08-07] MEDS: metroNIDAZOLE IV 500 MG/100ML 500 MG/100 ML BAG IVPB SCH (11:24)
[2021-08-07] MEDS: Vancomycin 1000 MG in NS 0.9% 250 ML IVPB SCH (12:59)
[2021-08-07 20:30] VITALS: BP 151/70
[2021-08-07] MEDS: Insulin GLARGINE 100 un/ml 10 ml VIAL SUBCUT SCH (20:36)
[2021-08-08] MEDS ORDERED: Furosemide 40 mg/4 ml IV VIAL IV SLOW PU SCH (09:00)
[2021-08-08] MEDS ORDERED: Vancomycin 1000 MG in NS 0.9% 250 ML IVPB SCH (13:00)
[2021-08-10] MEDS ORDERED: Vancomycin Trough Check NOTE FOLLOW UP ONE (12:30)
== END 2021-08-07 21:30 | disposition short-term general hospital (02) | DRG 637 ==
LOC: ED 11:46 → MED 18:51 → ED 21:09 → MEDTELE 08-03 16:42
PROVIDERS: ADMIT Student in an Organized Health Care Education/Training Program; ATTEND Internal Medicine
PROC: ANG.PRO (2021-08-03 10:15)